=== PATIENT | male | born 1945 | race Caucasian/White ===

== ENCOUNTER → 2017-11-30 12:24 | Outpatient (CLI) | payer MEDICARE, SELFPAY ==
--- NOTE | 2017-11-30 12:32 | CA_ITS ---
PROCEDURE: 2-D M-mode and color Doppler study INDICATIONS FOR THE TEST: Chest pain COPD Heart Murmur Tobacco Smoking Palpitations Fatigue Syncope Edema HypertensionXDiabetes MellitusX Rheumatic Fever SOB COYLE Obesity HyperlipidemiaX Family History HD Additional History PACER,PAF,CAD PATIENT INFORMATION HEIGHT: 67 WEIGHT:220 GENDER: Male B/P:179/79 2-D/M-MODE INTERPRETATION: 2-D MEASUREMENTS OBSERVED VALUES IN CMS Right Ventricular Dimension (RVDd) 1.9 Interventricular Septum (Thickness)(IVsd) .9 Left Ventricular Internal Dimensions(LVIDd) 5.1 Left Ventricular Posterior Wall (Thickness)(LVPWd) 1.2 Aortic Root 3.8 Aortic Cusp Separation 1.6 Left Atrial Dimensions (LAD) 3.8 2D 1. Left atrium is mildly enlarged, left ventricle is normal size, there is mild concentric left ventricular hypertrophy, visually estimated ejection fraction 50% with no obvious regional wall motion abnormality. 2. The right atrium is mildly enlarged, right ventricle is normal size, there is a pacemaker lead seen in the right atrium and right ventricle, Contractility of the right ventricle is normal. 3. The aortic valve is minimally thickened and calcified, leaflet continue to display good mobility. 4. The mitral and tricuspid valve leaflets are minimally thickened. 5. The pulmonic valve is poorly visualized. 6. No significant pericardial effusion noted. DOPPLER INTERROGATION: Doppler interrogation of the aortic, mitral and tricuspid valvular presence of mild mitral and tricuspid regurgitation, tricuspid regurgitant jet velocity insufficient for calculation of the right ventricular systolic pressure, grade 1 diastolic dysfunction seen with tissue Doppler evidence of raised left atrial pressure. CONCLUSION: 1. Mild biatrial enlargement, normal left ventricular size, visually estimated ejection fraction 50% with no obvious regional wall motion abnormality, grade 1 diastolic dysfunction seen with tissue Doppler evidence of raised left atrial pressure. 2. Mild mitral and tricuspid regurgitation. 3. No significant pericardial effusion noted.
== END ==
PROVIDERS: PCP Internal Medicine Adolescent Medicine; Visit Provider Internal Medicine
DX: I25.10 Atherosclerotic heart disease of native coronary artery without angina pectoris (principal); I48.0 Paroxysmal atrial fibrillation; I10 Essential (primary) hypertension; E78.5 Hyperlipidemia, unspecified; E11.9 Type 2 diabetes mellitus without complications
CPT/HCPCS: 93306

== ENCOUNTER → 2019-03-27 10:23 | Outpatient (CLI) | payer MEDICARE, SELFPAY ==
--- NOTE | 2019-03-27 10:30 | NVE_ITS ---
Venous Exam Indications: 729.81 Swelling of limb. 729.5 Pain in limb. IMPRESSIONS 1. There is no evidence of significant Reflux. 2. No evidence of deep vein thrombosis involving the left lower extremity. Superficial thrombophlebitis seen left distal medial calf. History: Risk factors: Current tobacco use. Hypertension. Left lower extremity venous duplex evaluation. Doppler flow study including spectral analysis, color and ortiz scale imaging. Location: Vascular laboratory. Patient status: Outpatient. CRITICAL FINDINGS - Reported to: Dr Berumen - 03/27/2019 - 10:55 am - Superficial thrmbophlebitis left lower ext. Tables: Venous flow and imaging: + +-------+ + Location Overall Flow properties + +-------+ + Left common femoral Patent Normal phasicity; spontaneous; normal augmentation; compressible + +-------+ + Left saphenofemoral junction Patent Compressible + +-------+ + Left profunda femoral Patent Compressible + +-------+ + Left femoral Patent Normal phasicity; spontaneous; normal augmentation; compressible + +-------+ + Left greater saphenous Patent Normal phasicity; spontaneous; normal augmentation; compressible + +-------+ + Left popliteal Patent Normal phasicity; spontaneous; normal augmentation; compressible + +-------+ + Left posterior tibial Patent Compressible + +-------+ + Left peroneal Patent Compressible + +-------+ + Left gastrocnemius Patent Compressible + +-------+ + Left soleal Patent Compressible + +-------+ + (Report amended ) Electronically signed by: Paxton Patterson [id number]
[2019-03-27 11:01] LABS: Basophils % 0.6 % (0.1-2.0); Eosinophils # 0.3 K/mm3 (0.0-0.4); Eosinophils % 3.8 % (0.1-12.0); Hematocrit 45.5 % (42.0-52.0); Hemoglobin 15.8 g/dL (14.1-18.0); Lymphocytes # 2.1 K/mm3 (0.7-4.5); Lymphocytes % 26.7 % (10-50); Mean Corpuscular HGB Conc 34.7 g/dL (31.8-35.4); Mean Corpuscular Hemoglobin 30.6 pg (27.0-31.2); Monocytes # 0.7 K/mm3 (0.1-1.0); Monocytes % 8.4 % (1.7-9.3); Neutrophils # 4.9 K/mm3 (1.8-7.8); Neutrophils % 60.6 % (37.0-80.0); Platelet Count 242 K/mm3 (142-424); Red Blood Count 5.17 M/mm3 (4.60-6.20); Red Cell Distribution Width 13.3 % (11.5-17.5)
[2019-03-27 11:40] LABS: D-Dimer 710 ng/mL (0-400)
[2019-03-27 12:42] LABS: Alanine Aminotransferase 37 U/L (12-78); Albumin Level 4.2 gm/dL (3.4-5.0); Albumin/Globulin Ratio 1.3 (1.1-1.8); Alkaline Phosphatase 72 U/L (46-116); Anion Gap 12.4 mEq/L (5-15); Aspartate Amino Transferase 17 U/L (15-37); Bilirubin,Total 0.7 mg/dL (0.2-1.0); Blood Urea Nitrogen 15 mg/dL (7-18); Calcium 9.9 mg/dL (8.5-10.1); Carbon Dioxide 30 mmol/L (21.0-32.0); Chloride 101 mmol/L (98-107); Creatinine,Serum 0.97 mg/dL (0.70-1.30); Estimated Glomerular Filt Rate 76 ml/min (>60); GFR (African American) 92 ML/MIN (>60); Globulin 3.3 gm/dl (1.3-3.2); Glucose 191 mg/dL (74-106); Potassium 4.4 mmoL/L (3.5-5.1); Sodium 139 mmol/L (136-145); Total Protein,Serum 7.5 gm/dL (6.4-8.2)
== END ==
PROVIDERS: Visit Provider Internal Medicine Adolescent Medicine
DX: R60.0 Localized edema (principal); M79.605 Pain in left leg
CPT/HCPCS: 36415; 80053; 85025; 85378; 93971

== ENCOUNTER → 2019-06-08 13:01 | Outpatient (CLI) | payer MEDICARE, SELFPAY ==
--- NOTE | 2019-06-08 13:05 | XR_ITS ---
XR chest 2V HISTORY: ITS.REASON: chest pain, fall ORDERING PHYSICIAN: Radha Walton APRN PATIENT AGE: 74 years COMPARISON: 03/20/2018 FINDINGS: Bipolar pacemaker is present from a left subclavian approach. Normal heart size. The lungs are clear. Coronary artery stent is present. Degenerative change thoracic spine. IMPRESSION: No change with no acute finding
[2019-06-08 17:36] LABS: Anion Gap 12.9 mEq/L (5-15); Blood Urea Nitrogen 13 mg/dL (7-18); Calcium 9.7 mg/dL (8.5-10.1); Carbon Dioxide 27 mmol/L (21.0-32.0); Chloride 103 mmol/L (98-107); Estimated Glomerular Filt Rate 82 ml/min (>60); GFR (African American) 100 ML/MIN (>60); Glucose 192 mg/dL (74-106); Potassium 3.9 mmoL/L (3.5-5.1); Sodium 139 mmol/L (136-145)
== END ==
PROVIDERS: Internal Medicine Cardiovascular Disease; PCP Internal Medicine Adolescent Medicine; Visit Provider Nurse Practitioner Family
DX: R07.9 Chest pain, unspecified (principal)
CPT/HCPCS: 36415; 71046; 80048; 83880

== ENCOUNTER → 2019-06-08 14:52 | Outpatient (CLI) | payer MEDICARE, SELFPAY | PROVIDERS: Visit Provider Internal Medicine Cardiovascular Disease | DX: R06.00 Dyspnea, unspecified (principal); I25.10 Atherosclerotic heart disease of native coronary artery without angina pectoris; R07.89 Other chest pain; E78.5 Hyperlipidemia, unspecified; E11.9 Type 2 diabetes mellitus without complications; I10 Essential (primary) hypertension; I48.91 Unspecified atrial fibrillation; Z95.0 Presence of cardiac pacemaker; Z79.84 Long term (current) use of oral hypoglycemic drugs; Z87.891 Personal history of nicotine dependence | CPT/HCPCS: 36415; 71046; 80048; 83880 ==

== ENCOUNTER → 2019-06-15 10:38 | Outpatient (CLI) | payer MEDICARE, MEDICAID, SELFPAY ==
--- NOTE | 2019-06-15 10:40 | CA_ITS ---
PROCEDURE: 2-D M-mode and color Doppler study INDICATIONS FOR THE TEST: Chest pain COPD Heart Murmur Tobacco Smoking Palpitations Fatigue Syncope Edema Hypertension+Diabetes Mellitus+ Rheumatic Fever SOB COYLE+Obesity Hyperlipidemia+ Family History HD Additional History A-FIB,CAD, PACER TDS-LIMITED WINDOWS PATIENT INFORMATION HEIGHT: 67 WEIGHT:228 GENDER: Male B/P:147/69 2-D/M-MODE INTERPRETATION: 2-D MEASUREMENTS OBSERVED VALUES IN CMS Right Ventricular Dimension (RVDd) 2.6 Interventricular Septum (Thickness)(IVsd) 1.2 Left Ventricular Internal Dimensions(LVIDd) 3.2 Left Ventricular Posterior Wall (Thickness)(LVPWd) 1.3 Aortic Root 3.4 Aortic Cusp Separation 1.8 Left Atrial Dimensions (LAD) 4.0 2D 1. Left atrium is mildly enlarged, left ventricle is normal size, mild concentric left ventricular hypertrophy, visually estimated ejection fraction 55% with no regional wall motion abnormality. 2. The right atrium and right ventricle are mildly enlarged with normal contractility, there is a pacemaker leads in right ventricle. 3. The aortic valve is thickened and calcified leaflet continue to display mobility. 4. The mitral and tricuspid valve leaflets are minimally thickened and calcified. 5. The pulmonic valve is poorly visualized. 6. No significant pericardial effusion noted. DOPPLER INTERROGATION: Doppler interrogation of the aortic, mitral and tricuspid valvular presence of mild mitral and tricuspid regurgitation, tricuspid regurgitation jet velocity is inadequate for calculation of the right ventricular systolic pressure, grade 1 diastolic dysfunction seen with tissue Doppler evidence of raised left atrial pressure. CONCLUSION: 1. Mildly enlarged left atrium, normal left ventricular size, mild concentric left ventricular hypertrophy, visually estimated ejection fraction 55% with no regional wall motion abnormality, grade 1 diastolic dysfunction seen with tissue Doppler evidence of raised left atrial pressure. 2. Mild mitral and tricuspid regurgitation 3. No significant pericardial effusion noted.
--- NOTE | 2019-06-15 11:12 | NM_ITS ---
History:DYSPNEA, HTN, coronary artery disease, diabetes, hyperlipidemia Procedure: Patient received a 0.4 mg of intravenous Lexiscan, resting heart rate 60 bpm, resting blood pressure 143/80, with Lexiscan maximum heart rate achieve was 66 bpm which is less than 85 % of the maximum predicted heart rate and blood pressure was 135/60. WIth Lexiscan patient denied any complaint of chest pain. Electrocardiogram: Resting electrocardiogram showed sinus rhythm nonspecific ST-T changes, with Lexiscan there is less than 1.5mm ST segment depression noted from the baseline EKG. The EKG portion of the Lexiscan Myoview is nondiagnostic. Cardias Stress and Resting SPECT images: Cardias Stress and Resting SPECT images were obtained using technetium 99m Myoview 31.8 mCi stress and 10.38 mCi at rest. Gated SPECT further analysis of segmental wall motion and calculation of ejection fraction also done. Cardiac stress and resting SPECT show partial reversible defect involving the inferior apical and anteroseptal wall consistent with mixed ischemia and scar, the computer derived ejection fraction is 51% with moderate anterior anteroapical and apical septal wall hypokinesis. Right ventricle is normal size and contractility. Conclusion: 1. The EKG portion of the Lexiscan Myoview is nondiagnostic. 2. Scintigraphic evidence of mixed ischemia and scar involving the anterior anteroapical and apical septal wall, computer derived ejection fraction is 51% with segmental wall motion abnormality as described above. 3. Abnormal Lexiscan Myoview study.
--- NOTE | 2019-06-15 13:25 | HMH.ITSHM ---
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 []DILTAZAM ASA METFORMIN PANTOPRAZOLE HCTZ LOSARTAN DOXOZOSIN SOTOLOL ROSUVASTATIN
== END ==
PROVIDERS: PCP Internal Medicine Adolescent Medicine; Visit Provider Internal Medicine Cardiovascular Disease
DX: E78.5 Hyperlipidemia, unspecified (principal); I10 Essential (primary) hypertension; I25.10 Atherosclerotic heart disease of native coronary artery without angina pectoris; I48.91 Unspecified atrial fibrillation; Z95.0 Presence of cardiac pacemaker
CPT/HCPCS: 78452; 93017; 93306; A9502; J2785

== ENCOUNTER → 2019-07-12 07:42 | Outpatient (CLI) | payer MEDICARE, SELFPAY ==
[2019-07-12 08:06] LABS: Anion Gap 13.3 mEq/L (5-15); Blood Urea Nitrogen 20 mg/dL (7-18); Calcium 9.7 mg/dL (8.5-10.1); Carbon Dioxide 27 mmol/L (21.0-32.0); Chloride 103 mmol/L (98-107); Estimated Glomerular Filt Rate 65 ml/min (>60); GFR (African American) 79 ML/MIN (>60); Glucose 175 mg/dL (74-106); Potassium 4.3 mmoL/L (3.5-5.1); Sodium 139 mmol/L (136-145)
== END ==
PROVIDERS: Visit Provider Nurse Practitioner Family
DX: I51.89 Other ill-defined heart diseases (principal); R06.00 Dyspnea, unspecified
CPT/HCPCS: 36415; 80048

== ENCOUNTER → 2020-03-12 07:39 | Outpatient (CLI) | payer MEDICARE, MEDICAID, SELFPAY ==
--- NOTE | 2020-03-12 07:39 | CA_ITS ---
APPROVED REPORT Automation Machine Builder: CT Laterality: Bilateral Indications: dizzness, bruit on exam Risk Factors Hypertension: Hyperlipidemia Doppler Spectral Velocity Analysis ECA (R) 136.40/5.90 cm/s ECA (L) 154.00/19.90 cm/s dICA (R) 59.70/14.10 cm/s dICA (L) 68.70/20.50 cm/s Floyd (R) 74.50/21.80 cm/s Floyd (L) 62.30/19.30 cm/s pICA (R) 49.20/16.70 cm/s pICA (L) 63.60/19.90 cm/s dCCA (R) 68.50/13.70 cm/s dCCA (L) 75.40/12.00 cm/s pCCA (R) 89.10/14.60 cm/s pCCA (L) 102.80/10.30 cm/s Vert (R) 31.70/6.40 cm/s Vert (L) 36.80/9.80 cm/s ICA/CCA 1.10 ICA/CCA 0.90 Findings Duplex evaluation demonstrates stenosis of the right proximal internal carotid artery in the range of 20-49% with PSV <140 cm/sec, EDV <100 cm/sec, and IC/CC Ratio <4.0. Duplex evaluation demonstrates stenosis of the left proximal internal carotid artery in the range of 20-49% with PSV <140 cm/sec, EDV <100 cm/sec, and IC/CC Ratio <4.0. Duplex evaluation demonstrates antegrade flow of the bilateral Vertebral Arteries. Conclusion Duplex evaluation demonstrates stenosis of the right proximal internal carotid artery in the range of 20-49% with PSV <140 cm/sec, EDV <100 cm/sec, and IC/CC Ratio <4.0. Duplex evaluation demonstrates stenosis of the left proximal internal carotid artery in the range of 20-49% with PSV <140 cm/sec, EDV <100 cm/sec, and IC/CC Ratio <4.0. Electronically signed by : Paxton Patterson MD 03/12/2020 19:06:27
== END ==
PROVIDERS: PCP Internal Medicine Adolescent Medicine; Visit Provider Urology
DX: R42 Dizziness and giddiness; I65.23 Occlusion and stenosis of bilateral carotid arteries
CPT/HCPCS: 93880

== ENCOUNTER → 2020-05-06 07:40 | Outpatient (CLI) | payer MEDICARE, SELFPAY | PROVIDERS: PCP Internal Medicine Adolescent Medicine; Visit Provider Urology | DX: I25.10 Atherosclerotic heart disease of native coronary artery without angina pectoris (principal) | CPT/HCPCS: 93306 ==

== ENCOUNTER 2020-06-03 19:44 | Emergency (ER) | payer MEDICARE, MEDICAID, SELFPAY ==
[2020-06-03 19:58] VITALS: BP 152/71; PULSE 74; RESP 20; TEMP 36.7; O2SAT 98; BMI 37.8
--- NOTE | 2020-06-03 20:06 | HMH.EDUTC ---
[facility] [place] Clinical Impression: Tick bite Qualifiers: Encounter type: initial encounter Qualified Code(s): W57.XXXA - Bitten or stung by nonvenomous insect and other nonvenomous arthropods, initial encounter Disposition: Home, Self-Care Condition on Discharge: Good Instructions: Protect Yourself from Tickborne Illnesses Additional Instructions: Follow up with your regular doctor tomorrow as you have already scheduled. Watch the site for worsening redness or a bull's eye rash . Follow up immediately for any problems. GO TO THE ER FOR ANY WORSENING SYMPTOMS OR CONCERNS Prescriptions: Mupirocin [Bactroban 2% Ointment 22gm tube] 1 applicatio TP TID 7 Days #1 tube Transmission Status: Received by [facility] Referrals: Jl Berumen MD [Primary Care Provider] - Time of Disposition: 20:11 Medical Decision Making - Medical Records Medical records reviewed: No: I reviewed the patient's medical records. - Olegario Inquiry Pt receiving controlled substance: No Vital Signs: 06/03/20 19:58 06/03/20 20:07 Temperature 98.1 F 98.1 F Temperature Source Oral Pulse Rate 74 Pulse Rate [Right Brachial] 74 Respiratory Rate 20 20 Blood Pressure 152/71 H Blood Pressure [Right Arm] 152/71 H Blood Pressure Mean [Right Arm] 98 Blood Pressure Source [Right Arm] Automatic Cuff Blood Pressure Position [Right Arm] Sitting 02 Sat by Pulse Oximetry 98 Oxygen Delivery Method Room Air [facility] [place] H[place] - General Stated complaint: tick in left leg Time Seen by Provider: 06/03/20 20:07 Mode of Arrival: Ambulatory Source of Information: Patient Limitations: No Limitations Description of Symptoms (Recalled from Triage Doc. by RN): PATIENT C/O TICK IN LEFT LEG, STATES HE JUST NOTICED IT TODAY WHILE IN THE SHOWER HEENT Symptoms (Recalled from RN notes): No Resp Symptoms (Recalled from RN notes): No Skin Symptoms (Recalled from RN notes): Yes MS Symptoms (Recalled from RN notes): No Functional Status (Recalled from RN notes): WNL - History of Present Illness Provider Complaint: He states that he found a tick on his right upper leg earlier today and removed it. He states that his was afraid that part of the tick was left embedded in the site. He came here to have it checked. He denies any fever/chills or rash. - Related Data Home Medications Medication Instructions Recorded Confirmed metformin 500 mg tablet 1,000 mg PO BID tab 12/03/17 03/12/20 rosuvastatin 20 mg tablet 10 mg PO DAILY 06/08/19 03/12/20 empagliflozin 25 mg tablet 25 mg PO DAILY tab 12/13/19 03/12/20 Previous Rx's Medication Instructions Recorded clopidogrel 75 mg tablet 75 mg PO DAILY #30 tab 07/03/19 diltiazem HCl 240 mg 360 mg PO QDAY #90 cap 08/14/19 capsule,extended release 24 hr losartan 100 mg tablet 100 mg PO DAILY #30 tab 12/13/19 doxazosin 4 mg tablet 4 mg PO BID #60 tab 03/12/20 sotalol 120 mg tablet 120 mg PO BID #60 tab 03/12/20 nitroglycerin 0.4 mg sublingual 0.4 mg SUBLINGUAL Q5M PRN #25 tab 05/13/20 tablet furosemide 20 mg tablet 20 mg PO DAILY #90 tab 05/20/20 rivaroxaban 20 mg tablet 20 mg PO DAILY #30 tab 05/20/20 Mupirocin [Bactroban 2% Ointment 1 applicatio TP TID 7 Days #1 tube 06/03/20 22gm tube] Allergies Allergy/AdvReac Type Severity Reaction Status Date / Time amoxicillin Allergy Mild Hives Verified 03/12/20 09:21 - Worker's Comp Is this a Worker's Comp case?: No [facility] History - Hepatitis A Screen Drug use history?: No High risk sexual behaviors?: No History of sexually transmitted infection?: No Currently employed?: No Childcare worker?: No Do you have indoor plumbing?: Yes Do you have electricity?: Yes Attestation statement:: This patient has been screened for Hepatitis A risk factors. I have reviewed the patient's past medical history: Yes Medical History: Reports:: Atrial Fibrillation, Coronary Artery Disease, Diabetes Mellitus Type 2, Hyperlipidemia
[2020-06-03 20:07] VITALS: BP 152/71; PULSE 74; RESP 20; TEMP 36.7; O2SAT 98
== END 2020-06-03 20:17 | disposition home or self-care (01) ==
PROVIDERS: Emergency Provider Nurse Practitioner Family; PCP Internal Medicine Adolescent Medicine
DX: S70.362A Insect bite (nonvenomous), left thigh, initial encounter (principal); W57.XXXA Bitten or stung by nonvenomous insect and other nonvenomous arthropods, initial encounter; E11.9 Type 2 diabetes mellitus without complications; Z79.84 Long term (current) use of oral hypoglycemic drugs; I25.10 Atherosclerotic heart disease of native coronary artery without angina pectoris; I48.91 Unspecified atrial fibrillation; I10 Essential (primary) hypertension; E78.5 Hyperlipidemia, unspecified; Z88.1 Allergy status to other antibiotic agents; Z95.0 Presence of cardiac pacemaker
CPT/HCPCS: 99201

== ENCOUNTER → 2020-06-29 08:10 | Outpatient (CLI) | payer MEDICARE, SELFPAY ==
[2020-06-29 09:28] LABS: Coronavirus 19 IgG Antibody Negative (Negative); Coronavirus 19 IgM Antibody Negative (Negative)
== END ==
PROVIDERS: Visit Provider Internal Medicine Gastroenterology
DX: Z01.818 Encounter for other preprocedural examination (principal); Z12.11 Encounter for screening for malignant neoplasm of colon
CPT/HCPCS: 36415; 86328

== ENCOUNTER 2020-07-01 06:56 | Day surgery (SDC) | payer MEDICARE, MEDICAID, SELFPAY ==
--- NOTE | 2020-06-28 09:36 | SUR.PREOP ---
Spoke to patient's pre-operatively. Clarification given multiple times for medications, prep, covid testing importance. Verbalized understanding.
[2020-07-01 07:12] VITALS: BP 156/93; PULSE 60; RESP 18; TEMP 36.2; O2SAT 98
[2020-07-01 07:24] LABS: POC Glucose,Bedside 143 (70-110)
--- NOTE | 2020-07-01 07:43 | P.PN_ITS ---
[facility] Anesthesia Checklist - Patient Identification Patient Identification: Arm Band, Verbal (Name & ) - Structural Data Admitted From: Home Planned Operative Procedure/s: Colonoscopy Consent for Planned Operative Procedure(s) Verified: Yes Verified Documents: Surgical Consent, History and Physical - NPO Status Verified Time NPO: 00:00 - Chart Verification Results Verified: None - Additional verifications Anesthesia Reactions: No - Airway Assessment C-Spine Mobility Assessed: Yes TMJ Mobility Assessed: Yes Dentition: Edentulous - Neurological Assessment Level of Consciousness: Awake, Alert, Appropriate, Follows Commands Hx Seizures: No Numbness or tingling in extremities: No - Anesthesia Plan Anesthesia Risk discussed: Yes Anesthesia Plan: Verified ASA Class: III Anesthesia Type: MAC [facility] History I have reviewed the patient's past medical history: Yes Medical History: Reports:: Atrial Fibrillation, Coronary Artery Disease, Diabetes Mellitus Type 2, Hyperlipidemia, Hypertension, Internal Pacemaker Denies:: Cancer, Diabetes Mellitus Type 1, MRSA, Seizures *Have you ever received a pneumonia vaccine?: No *Have you received a flu vaccine this season?: No Anesthesia experience/problems:: No prior complications Other Surgeries: Yes: Angioplasty, Cardiac Catheterization, Coronary Stent, Hernia Repair, Pacemaker, Other Amputation: No Fractures: No - *Social History Last grade of school completed: 9th or 10th Smoking Status: Never smoker Tobacco Type: smokeless tobacco # Packs/Day (cigarettes): 0 Alcohol Intake: never Alcohol Intake Frequency:: other Substance Use Type: denies use *Occupational Status:: other Housing: house Household Members: spouse *Travel in the last 8 weeks: None Family Hx:: Diabetes
[2020-07-01 07:58] VITALS: O2SAT 97
--- NOTE | 2020-07-01 08:07 | P.PCN_ITS ---
[facility] Procedure Note Procedure Note:: Colonoscopy Procedure Report: Colonoscopy with cold snare polypectomy Endoscopist: Catracho Ellison II, MD Referring physician: Jl Berumen M.D. Date of Procedure: July 01, 2020 Equipment: Olympus 180 variable stiffness pediatric colonoscope Sedation: MAC sedation Indication: Mr. Chaudhari is a 75-year-old gentleman who is here for diagnostic colonoscopy secondary to a positive Cologuard test recently. He had a negative Cologuard in 2017. He has never had a colonoscopy. He reports no bright red re ctal bleeding, hematochezia or melena. He reports no abdominal pain, change in bowel habits or weight loss. He reports no family history of colon cancer. He does take a stool softener occasionally. Procedure: Prior to the procedure, a history and physical exam was performed, and patient's medications and allergies were reviewed. The risks, benefits and alternatives of the sedation and procedure were discussed with the patient. All questions were answered and informed consent was obtained. The patient was brought to the procedure room. Patient identification and proposed procedure were verified by the physician and the nurse. The patient was placed in a left lateral decubitus position and the scope was passed under direct vision. Throughout the procedure, the patient's blood pressure, pulse, and oxygen saturations were monitored continuously. The colonoscopy was accomplished without difficulty. The patient tolerated the procedure well. Findings: On digital rectal examination there was normal rectal tone. There were no external hemorrhoids. The prostate was 2-3+, smooth, soft, symmetric without nodules. The colonoscope was introduced through the anal canal to the rectum and advanced to the cecum. The ileocecal valve and appendiceal orifice were identified. The scope was advanced a short distance into the ileum which appeared grossly normal. The scope was then withdrawn into the colon. There were 4 colon polyps (cecum x1 (6 mm), transverse x1 (3 mm) and descending x2 (5 and 7 mm)) which were all removed via cold snare polypectomy. There were scattered diverticuli throughout the descending and sigmoid colon (LEFT colon). The rectum itself was normal. Upon retroflexion within the rectum there were grade 1-2 internal hemorrhoids. The preparation was excellent throughout with Sadorus Preparation Score of 9. The cecal time was 12 minutes. Impression: 1. Colonic polyps x4 2. Left-sided diverticulosis 3. Grade 1-2 internal hemorrhoids Plan: I will follow up the polyp pathology and recommend repeat colonoscopy again in 5 years based upon the polyp histology. I would encourage fiber supplementation on a long-term daily maintenance basis.
[2020-07-01 08:28] VITALS: BP 102/62; PULSE 60; RESP 12; TEMP 36.6; O2SAT 93
[2020-07-01 08:38] VITALS: BP 105/69; PULSE 60; RESP 14; O2SAT 94
[2020-07-01 08:48] VITALS: BP 113/69; PULSE 63; RESP 16; O2SAT 96
[2020-07-01 08:58] VITALS: BP 129/79; PULSE 60; RESP 16; TEMP 36.6; O2SAT 97
== END 2020-07-01 09:00 | disposition home or self-care (01) ==
LOC: OUTP 06:58
PROVIDERS: PCP Internal Medicine Adolescent Medicine; Visit Provider Internal Medicine Gastroenterology
PROC: 0DJD8ZZ Inspection of Lower Intestinal Tract, Via Natural or Artificial Opening Endoscopic (ICD-10-PCS; CPT 45378; principal; 2020-07-01 08:00)
DX: K63.5 Polyp of colon (principal); K57.30 Diverticulosis of large intestine without perforation or abscess without bleeding; K64.0 First degree hemorrhoids; I48.91 Unspecified atrial fibrillation; E11.9 Type 2 diabetes mellitus without complications; E78.5 Hyperlipidemia, unspecified; I10 Essential (primary) hypertension; Z95.0 Presence of cardiac pacemaker; Z95.818 Presence of other cardiac implants and grafts; Z88.1 Allergy status to other antibiotic agents; Z79.84 Long term (current) use of oral hypoglycemic drugs; Z79.899 Other long term (current) drug therapy
CPT/HCPCS: 45385; 82962; 88305; J2704

== ENCOUNTER → 2021-03-21 07:40 | Outpatient (CLI) | payer MEDICARE, MEDICAID, SELFPAY ==
--- NOTE | 2021-03-21 | CA_ITS ---
APPROVED REPORT Patrol Commander: CARL Laterality: Bilateral Indications: ELAINE Risk Factors Hypertension: Hyperlipidemia Diabetes Doppler Spectral Velocity Analysis ECA (R) 162.50/11.80 cm/s ECA (L) 129.10/6.70 cm/s dICA (R) 87.70/20.90 cm/s dICA (L) 64.20/14.10 cm/s Floyd (R) 89.80/27.80 cm/s Floyd (L) 55.90/17.30 cm/s pICA (R) 68.40/19.20 cm/s pICA (L) 79.00/23.10 cm/s dCCA (R) 63.60/16.00 cm/s dCCA (L) 57.70/11.10 cm/s pCCA (R) 73.20/12.30 cm/s pCCA (L) 82.20/16.00 cm/s Vert (R) 30.00/11.10 cm/s Vert (L) 43.70/12.80 cm/s ICA/CCA 1.41 ICA/CCA 1.37 Findings Duplex evaluation demonstrates stenosis of the right proximal internal carotid artery in the range of 20-49%, No change from study done 03/12/20. Duplex evaluation demonstrates stenosis of the left proximal internal carotid artery in the range of 20-49%, no change from study done 03/12/20. Conclusion Duplex evaluation demonstrates stenosis of the right proximal internal carotid artery in the range of 20-49%, No change from study done 03/12/20. Duplex evaluation demonstrates stenosis of the left proximal internal carotid artery in the range of 20-49%, no change from study done 03/12/20. Electronically signed by : Paxton Patterson MD 03/21/2021 15:49:05
== END ==
PROVIDERS: PCP Internal Medicine Adolescent Medicine; Visit Provider Urology
DX: R42 Dizziness and giddiness (principal); I65.23 Occlusion and stenosis of bilateral carotid arteries
CPT/HCPCS: 93880

== ENCOUNTER → 2021-03-31 09:22 | Outpatient (CLI) | payer MEDICARE, MEDICAID, SELFPAY ==
--- NOTE | 2021-03-31 09:27 | US_ITS ---
PROCEDURE: US EXTREMITY RT LIMITED CLINICAL INDICATION: PAIN IN RT AXILLA COMPARISON: No exams were available for comparison FINDINGS: Few scattered lymph nodes are noted in the right axilla, demonstrate normal morphology and central fatty hilum. No evidence of focal mass lesions or suspicious findings at the area of pain. IMPRESSION: No suspicious findings or mass lesions. Dictated by: Kelyl Diane 03/31/2021 12:44 Kelly Dinae in OV 03/31/2021 12:44
== END ==
PROVIDERS: PCP Internal Medicine Adolescent Medicine; Visit Provider Nurse Practitioner Family
DX: M79.621 Pain in right upper arm (principal)
CPT/HCPCS: 76882

== ENCOUNTER → 2021-11-20 08:49 | Outpatient (CLI) | payer MEDICARE, MEDICAID, SELFPAY ==
[2021-11-20 09:24] LABS: Hemoglobin A1C 7.1 % (4.0-6.0)
[2021-11-20 10:04] LABS: Chloride 105 mmol/L (98-107)
[2021-11-20 10:05] LABS: Potassium 4.1 mmoL/L (3.5-5.1); Sodium 141 mmol/L (136-145)
[2021-11-20 10:08] LABS: Anion Gap 14.1 mEq/L (5-15); Blood Urea Nitrogen 18 mg/dl (9-20); Calcium 9.9 mg/dl (8.4-10.2); Carbon Dioxide 26 mmol/L (22.0-30.0); Estimated Glomerular Filt Rate 94 ml/min (>60); GFR (African American) 114 ML/MIN (>60); Glucose 144 mg/dl (74-100)
== END ==
PROVIDERS: Visit Provider Nurse Practitioner Family
DX: E11.21 Type 2 diabetes mellitus with diabetic nephropathy (principal); Z79.84 Long term (current) use of oral hypoglycemic drugs
CPT/HCPCS: 36415; 80048; 83036

== ENCOUNTER → 2022-10-22 07:47 | Outpatient (CLI) | payer MEDICARE, MEDICAID, SELFPAY ==
--- NOTE | 2022-10-22 07:50 | XR_ITS ---
FINAL REPORT TECHNIQUE: Chest PA & Lateral CLINICAL HISTORY: pain at pacemaker site FINDINGS: 2 views of the chest were performed. A left subclavian pacemaker is present. There is mild cardiomegaly. The mediastinum is within normal limits. There is no acute cardiopulmonary process. There are no pleural effusions. There is no pneumothorax. The bony thorax appears intact. IMPRESSION: No acute cardiopulmonary process. Reviewed, Interpreted and Dictated by Fabrice Montez MD Transcribed by Natalie Huber Authenticated and [facility]
== END ==
PROVIDERS: PCP Nurse Practitioner Family; Visit Provider Internal Medicine
DX: E78.2 Mixed hyperlipidemia (principal); I10 Essential (primary) hypertension; I48.0 Paroxysmal atrial fibrillation; R42 Dizziness and giddiness; R52 Pain, unspecified; Z95.0 Presence of cardiac pacemaker
CPT/HCPCS: 71046

== ENCOUNTER → 2023-02-01 08:42 | Outpatient (CLI) | payer MEDICARE, MEDICAID, SELFPAY ==
--- NOTE | 2023-02-01 08:47 | XR_ITS ---
FINAL REPORT CLINICAL HISTORY: RT SACROILIAC JOINT PAIN FINDINGS: SACROILIAC JOINTS Three views demonstrate no acute fracture or dislocation. The sacral arches are intact. There are mild degenerative changes of the SI joints and both hips. There is moderate degenerative change of the lower lumbar spine. Vascular calcifications are present. IMPRESSION: Mild degenerative change of the hips and bilateral SI joints. Reviewed, Interpreted and Dictated by Ken Cornejo III, MD Transcribed by Hema Oneal Authenticated and [facility]
== END ==
PROVIDERS: PCP Nurse Practitioner Family; Visit Provider Nurse Practitioner Family
DX: M53.3 Sacrococcygeal disorders, not elsewhere classified (principal)
CPT/HCPCS: 72202

== ENCOUNTER → 2023-03-18 07:07 | Outpatient (CLI) | payer MEDICARE, MEDICAID, SELFPAY | PROVIDERS: PCP Nurse Practitioner Family; Visit Provider Nurse Practitioner | DX: E11.69 Type 2 diabetes mellitus with other specified complication (principal); E78.2 Mixed hyperlipidemia; I10 Essential (primary) hypertension; I25.10 Atherosclerotic heart disease of native coronary artery without angina pectoris; I48.0 Paroxysmal atrial fibrillation; R06.00 Dyspnea, unspecified; Z95.0 Presence of cardiac pacemaker; Z79.84 Long term (current) use of oral hypoglycemic drugs | CPT/HCPCS: 78452; 93017; 93306; A9502; J2785 ==

== ENCOUNTER 2023-03-30 08:45 | Day surgery (SDC) | payer MEDICARE, MEDICAID, SELFPAY ==
[2023-03-30] VITALS (11 sets, daily range): BP systolic 127–172; BP diastolic 69–94; PULSE 60–65; RESP 15–18; O2SAT 92–98; BMI 30.7
--- NOTE | 2023-03-30 07:30 | IR_ITS ---
APPROVED REPORT Patient Location: Outpatient PROCEDURES Left heart catheterization Left ventriculogram Selective coronary angiogram Intravascular ultrasound to the LAD Intravascular sound the circumflex artery INDICATION Coronary artery disease, Accelerated angina pectoris Informed consent was obtained prior to the procedure. COMPLICATIONS NONE Estimated Blood Loss: LESS THAN 10 ML TECHNIQUE One percent lidocaine used to anesthetize the right anterior aspect of the wrist. The right radial artery was accessed via the Seldinger technique. A 6 Trinidadian sheath was placed in the right radial artery. 150 mg magnesium sulfate, 800 mcg of nitroglycerin, 1mg Lidocaine and 5000 U Heparin were given through the arterial sheath. The papa catheter was also used to perform left heart catheterization, left ventriculogram and selective coronary angiogram. At the end the diagnostic angiogram therapeutic heparin was administered given therapeutic ACT and the guide catheter was placed in left main artery followed by BMW wire being placed down the LAD. Intravascular ultrasound probe was advanced with the MLA exceeding 5 mm???. The wire was then placed on the circumflex artery and the intravascular ultrasound probe was advanced. Likewise the MLA in the proximal circumflex artery exceeded 5 mm???. At this point the apparatus was removed the sheath was removed and hemostasis was achieved and TR banding patient was transferred to the postop holding in stable addition ANGIOGRAPHIC RESULTS The left main artery Normal The left anterior descending artery Has a proximal 30 to 40% stenosis followed by a widely patent stent which extends from the proximal to the mid segment. The transitioning in the distal segment distal excellent. Distal in the LAD there is a long tubular 90% stenosis and a 2 mm vessel. The LAD does wrap the apex The circumflex artery Is a large dominant vessel and has 30% ostial proximal stenosis followed by a stent which is widely patent with minimal in-stent restenosis excellent proximal distal transitioning. There is mid vessel 20 to 30% stenoses with a eccentric 30% distal stenosis followed by a long tubular 70% stenosis in the proximal portion of the terminal obtuse marginal artery which functions as a large posterior descending artery. The vessel was 2.75 mm in diameter at the stenotic area The right coronary artery Nondominant and has stents in the proximal segment. The mid right coronary artery is subtotally occluded The MUÑOZ ventriculogram reveals Normal 65% The left ventricular end-diastolic pressure 10 mmHg IMPRESSION Severe disease in the distal LAD as described above which is best managed medically Moderate to severe disease in the proximal portion of a large posterior descending artery which functions as the terminal obtuse marginal artery off the dominant circumflex artery. 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 At this point I favor medical management. The LAD would be the least desirable vessel stent at this point. If patient is experiencing angina its almost certainly coming from the circumflex artery. At this point I would favor medical management. If patient's angina is absolutely recalcitrant to medical management I would consider stenting the circumflex artery which occurs along the long tortuous bend and would require a 2.75 x 38 mm stent 2. LDL less than 55 3. Avoidance of tobacco products 4. Risk factor modification 5. Cardiac rehabilitation Electronically signed by : Joesph Aguilar MD 03/31/2023 12:55:38
[2023-03-30 09:36] LABS: Basophils % 0.5 % (0.1-2.0); Eosinophils # 0.3 K/mm3 (0.0-0.4); Eosinophils % 4.7 % (0.1-12.0); Hematocrit 42.8 % (42.0-52.0); Hemoglobin 13.8 g/dL (14.1-18.0); Lymphocytes # 1.5 K/mm3 (0.7-4.5); Lymphocytes % 20.9 % (10-50); Mean Corpuscular HGB Conc 32.3 g/dL (31.8-35.4); Mean Corpuscular Hemoglobin 26.8 pg (27.0-31.2); Mean Corpuscular Volume 83.1 fl (80-94); Mean Platelet Volume 8.1 fl (7.4-10.4); Monocytes # 0.6 K/mm3 (0.1-1.0); Monocytes % 9.2 % (1.7-9.3); Neutrophils # 4.5 K/mm3 (1.8-7.8); Neutrophils % 64.6 % (37.0-80.0); Platelet Count 281 K/mm3 (142-424); Red Blood Count 5.15 M/mm3 (4.60-6.20); Red Cell Distribution Width 15.2 % (11.5-17.5)
[2023-03-30 09:47] LABS: Chloride 100 mmol/L (98-107); Potassium 3.9 mmoL/L (3.5-5.1); Sodium 141 mmol/L (136-145)
[2023-03-30 09:50] LABS: Anion Gap 16.9 mEq/L (5-15); Blood Urea Nitrogen 20 mg/dl (9-20); Calcium 9.4 mg/dl (8.4-10.2); Carbon Dioxide 28 mmol/L (22.0-30.0); Creatinine Clearance Estimated 78 mL/min (50-200); Estimated Glomerular Filt Rate 94 ml/min (>60); GFR (African American) 113 ML/MIN (>60); Glucose 198 mg/dl (74-100)
== END 2023-03-30 14:09 | disposition home or self-care (01) ==
PROVIDERS: PCP Nurse Practitioner Family; Visit Provider Internal Medicine
DX: I25.118 Atherosclerotic heart disease of native coronary artery with other forms of angina pectoris (principal); E11.69 Type 2 diabetes mellitus with other specified complication; E78.2 Mixed hyperlipidemia; I10 Essential (primary) hypertension; I48.0 Paroxysmal atrial fibrillation; R06.09 Other forms of dyspnea; Z95.0 Presence of cardiac pacemaker; R06.00 Dyspnea, unspecified
CPT/HCPCS: 80048; 85025; 92979; 93458; 99152; C1725; C1769; J1644; Q9967

== ENCOUNTER 2023-05-13 08:00 | Outpatient (RCR) | payer MEDICARE, MEDICAID, SELFPAY ==
--- NOTE | 2023-02-11 10:17 | HMH.PTOPEV ---
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 Pt reports previous lumbar spine sx's x2, most recent ~7 yrs ago. Pt reports localized right sided LBP with this episode, but reports chronic right LE weakness since previous issues /sx's. Chief Complaint Pain,Stiff,Gives out/Unstable, Weakness Symptom Type Ache,Sharp,Dull Symptoms Relieved By Rest/Positioning,OTC Meds Symptoms Aggravated By Standing,Bending/Stooping, Physical Activity,Twisting, Walking Prior Functional Limitations Standing,Walking Current Functional Limitations Lifting,Housework,Standing, Walking Symptom Description Constant but Variable Level of pain today (0-10) 5 Pain scale - at its best (0-10) 5 Pain scale - at its worst (0-10) 8 Lumbopelvic Eval Posture Thoracic Spine Posture Standing Position Flattened Lumbar Spine Posture Standing Position Flattened Assistive device Assistive Devices None / NA Gait Observation General Gait Pattern Observation Antalgic Gait,Wide Based Gait Palapation tenderness right lumbar spinal tenderness Yes: 3/4 paraspinal tenderness Yes: 3/4 buttock tenderness Yes: 1/4 Lumbar/Sacral Palpation Findings Tenderness,Muscle Guarding Accessory Movement L-spine Vertebrae Accessory Movements Central P/A [place] that Elicit Symptoms L2 right L3 right L4 right L5 right Range of Motion Lumbar Spine Active Flexion Range of 0-50 Motion (degrees) Lumbar Spine Active Extension Range of 0 Motion (degrees) Left Lumbar Spine Lateral Flexion Active 0-20 Range of Motion (degrees) Right Lumbar Spine Lateral Flexion 0-10 Active Range of Motion (degrees) Lumbar Spine ROM Limitations Pain Manual Muscle Test Left Knee Extension Strength Grade 5 Normal Knee Fle
--- NOTE | 2023-03-16 09:18 | HMH.RHREAS ---
Rehab Reassessment Rehab OP Re-assessment Start: 03/16/23 08:22 Freq: Status: Active Protocol: Document 03/16/23 09:10 VIDHYA (Rec: 03/16/23 09:18 VIDHYA [id number]) E-signed By Avni Smith, PT Rehab Re-assessment Subjective Subjective Pt reports improved LBP since I eval, @ 5/10 on VAS at its worst, and feels 75% better overall since I eval Objective Objective Notes AROM LUMBAR SPINE: FLX 0-55, EXT 0-10, B/L SB 0-20 MMT: B/L HIP FLX 4+/5, RIGHT KNEE EXT,FLX 4-4+/5, R DF 4/5, R GASTROC 4/5 TTP: RIGHT LUMBAR PARA. MM 1-2 /4, RIGHT GLUT 1/4 GAIT: WFL ON LEVEL TERRAIN Assessment Progress Assessment Progressing as Expected Assessment Notes SIGNIFICANT IMPROVEMENTS IN AROM, STRENGTH, AND TTP Patient goals met STG'S 06/30 LTG'S 01/01 Goals Not Met STG'S 11/30, LTG'S 07/01 Plan Plan Pt to continue w/skilled P.T. to make further improvements in AROM, strength, and TTP to allow for optimal function Frequency of Therapy 1-2x/wk Duration of therapy 3-4wks Time and Billing Re-Eval Time 11 Re-Eval Billing Units 1 PHYSICIAN CERTIFICATION: I certify the specified therapy services for Yojana Chaudhari are required, authorized, and reviewed every 30 days.
--- NOTE | 2023-04-20 09:43 | HMH.RHREAS ---
Rehab Reassessment Rehab OP Re-assessment Start: 03/16/23 08:22 Freq: Status: Active Protocol: Document 04/20/23 08:53 VIDHYA (Rec: 04/20/23 09:43 VIDHYA [id number]) E-signed By Avni Smith, PT Rehab Re-assessment Subjective Subjective Pt reports recent absence from skilled P.T. d/t the passing of his sister, and reports 'my back has gotten a little worse since I haven't been able to get here.' Pt reports 3-5/10 LBP on VAS over the last couple days, 'spent too much time in the hospital trying to sleep in a chair.' Objective Objective Notes AROM LUMBAR SPINE: FLX 0-48, EXT 0-14, B/L SB 0-25 MMT: B/L HIP FLX 4+/5, RIGHT KNEE EXT,FLX 4-4+/5, R DF 4/5, R GASTROC 4+-5/5 TTP: RIGHT LUMBAR PARA. MM 2/4 , RIGHT GLUT 1/4 GAIT: WFL ON LEVEL TERRAIN Assessment Progress Assessment Progressing as Expected Assessment Notes improved ROM (ext and b/l sb' ing), no change in TTP or gait Patient goals met STG'S 06/30 LTG'S 03/01 Goals Not Met STG'S 11/30,LTG'S 05/01 Plan Plan Pt to continue w/skilled P.T. to make further improvements in AROM, strength, and TTP to allow for optimal function Frequency of Therapy 1-2X/WK Duration of therapy 2-4WKS Time and Billing Re-Eval Time 10 Re-Eval Billing Units 0 PHYSICIAN CERTIFICATION: I certify the specified therapy services for Yojana Chaudhari are required, authorized, and reviewed every 30 days.
== END 2023-05-13 08:05 | disposition home or self-care (01) ==
LOC: PT 08:00
PROVIDERS: PCP Nurse Practitioner Family; Visit Provider Nurse Practitioner Family
DX: M54.9 Dorsalgia, unspecified (principal); M54.50 Low back pain, unspecified
CPT/HCPCS: 97010; 97012; 97035; 97110; 97163; 97164; 97530

== ENCOUNTER 2023-05-20 09:41 | Outpatient (RCR) | payer MEDICARE, MEDICAID, SELFPAY | END 2023-07-15 09:15 | disposition home or self-care (01) | LOC: PT 09:41 | PROVIDERS: Visit Provider Physician Assistant | DX: I25.10 Atherosclerotic heart disease of native coronary artery without angina pectoris (principal); R06.09 Other forms of dyspnea | CPT/HCPCS: 93798 ==

== ENCOUNTER → 2023-07-13 11:37 | Outpatient (CLI) | payer MEDICARE, SELFPAY ==
--- NOTE | 2023-07-13 11:39 | CA_ITS ---
FINAL REPORT CLINICAL HISTORY: unsteady on feet, dizziness,HTN,HLD,DM FINDINGS: The peak systolic velocity of the right common carotid artery is 83 cm/s. The peak systolic velocity of the right internal carotid artery is 92 cm/s and end diastolic velocity 25 cm/s. The ICA/CCA ratio is 1.3. A moderate amount of plaque is present. The right external carotid artery is patent. The right vertebral artery is patent with antegrade flow. The peak systolic velocity of the left common carotid artery is 82 cm/s. The peak systolic velocity of the left internal carotid artery is 87 cm/s and end diastolic velocity 19 cm/s. The ICA/CCA ratio is 1.5. A moderate amount of plaque is present. The left external carotid artery is patent.The left vertebral artery is patent with antegrade flow. IMPRESSION: Less than 50% bilateral carotid stenoses. Bilateral patent vertebral arteries with antegrade flow. If indicated, CTA or MRA could further evaluate. Reviewed, Interpreted and Dictated by Fabrice Montez MD Transcribed by Susana Her Authenticated and [facility]
== END ==
PROVIDERS: PCP Nurse Practitioner Family; Visit Provider Physician Assistant
DX: R26.81 Unsteadiness on feet (principal)
CPT/HCPCS: 93880

== ENCOUNTER → 2023-10-21 13:10 | Outpatient (CLI) | payer MEDICARE, SELFPAY ==
[2023-10-21 13:18] LABS: Adenovirus,PCR Not Detected (NotDetected); Coronavirus 19, PCR Not Detected (NotDetected); Coronavirus 229E Not Detected (NotDetected); Coronavirus NL63 Not Detected (NotDetected); Coronavirus OC43 Not Detected (NotDetected); Coronovirus HKU1,PCR Not Detected (NotDetected); Human Metapneumovirus Not Detected (NotDetected); Influenza A, PCR Not Detected (NotDetected); Influenza AH1, 2009 Not Detected (NotDetected); Influenza AH1, PCR Not Detected (NotDetected); Influenza AH3,PCR Not Detected (NotDetected); Influenza B, PCR Not Detected (NotDetected); Parainfluenza 1, PCR Not Detected (NotDetected); Parainfluenza 2, PCR Not Detected (NotDetected); Parainfluenza 3, PCR Not Detected (NotDetected); Parainfluenza 4, PCR Not Detected (NotDetected); Rhinovirus/Enterovirus Not Detected (NotDetected)
[2023-10-21 17:40] LABS: Respiratory Syncytial Virus Detected (NotDetected)
== END ==
PROVIDERS: PCP Nurse Practitioner Family; Visit Provider Nurse Practitioner Family
DX: R05.1 Acute cough (principal); B97.4 Respiratory syncytial virus as the cause of diseases classified elsewhere
CPT/HCPCS: 87632; 87635

== ENCOUNTER 2023-10-27 09:46 | Outpatient (RCR) | payer MEDICARE, SELFPAY | END 2023-10-27 11:00 | disposition home or self-care (01) | LOC: PT 09:46 | PROVIDERS: PCP Nurse Practitioner Family; Visit Provider Nurse Practitioner Family | DX: S86.811A Strain of other muscle(s) and tendon(s) at lower leg level, right leg, initial encounter (principal); M79.604 Pain in right leg | CPT/HCPCS: 97163; 97535 ==

== ENCOUNTER 2024-03-24 11:08 | Outpatient (CLI) | payer MEDICARE, SELFPAY ==
--- NOTE | 2024-03-24 | US_ITS ---
FINAL REPORT CLINICAL HISTORY: DM, HLD, HTN, EX SMOKER, 15 CARDIAC STENTS FINDINGS: LOWER EXTREMITY SEGMENTAL PRESSURE MEASUREMENTS Pressure indices are as follows: RIGHT LOWER EXTREMITY: Upper thigh: 1.0 Calf: 0.69 Ankle, posterior tibial artery: 0.64 Ankle, dorsalis pedis: 0.53 Toe: 0.31 Comments: Moderate peripheral vascular disease. LEFT LOWER EXTREMITY: Upper thigh: 1.0 Calf: 0.93 Ankle, posterior tibial artery: 0.83 Ankle, dorsalis pedis: 0.90 Toe: 0.68 Comments: Mild peripheral vascular disease. IMPRESSION: Moderate peripheral vascular disease on the right. Mild peripheral vascular disease on the left. Reviewed, Interpreted and Dictated by Diya Cr MD Transcribed by Susana Her Authenticated and [facility]
== END 2024-03-24 23:59 | disposition home or self-care (01) ==
LOC: RT 11:08
PROVIDERS: PCP Internal Medicine Adolescent Medicine; Visit Provider Nurse Practitioner Family
DX: I73.9 Peripheral vascular disease, unspecified (principal)
CPT/HCPCS: 93923

== ENCOUNTER 2024-04-04 08:53 | Outpatient (POV) | payer MEDICARE, SELFPAY | END 2024-04-04 23:59 | disposition home or self-care (01) | LOC: SC 08:54 | PROVIDERS: Visit Provider Specialist/Technologist | DX: Z00.00 Encounter for general adult medical examination without abnormal findings (principal) ==

== ENCOUNTER 2024-04-24 07:42 | Day surgery (SDC) | payer MEDICARE, SELFPAY ==
[2024-04-24] VITALS (14 sets, daily range): BP systolic 121–171; BP diastolic 57–81; PULSE 60–77; RESP 16–19; TEMP 36.6; O2SAT 94–99; BMI 29.7
--- NOTE | 2024-04-24 07:07 | IR_ITS ---
APPROVED REPORT Patient Location: Outpatient PROCEDURES Pigtail catheter placed in the abdominal aorta Abdominal aortography Repositioning of the catheter in the abdominal aorta Bilateral iliofemoral runoff INDICATION Chantell claudication class III, Abnormal LISA, Peripheral artery disease Informed consent was obtained prior to the procedure. COMPLICATIONS NONE Estimated Blood Loss: LESS THAN 10 ML TECHNIQUE 1% lidocaine used to anesthetize the left femoral groin. The left femoral artery was accessed via the Seldinger technique. 5 [place] sheath is placed in left femoral artery. A pigtail catheter was advanced under fluoroscopic guidance into the mid abdominal aorta and abdominal aortography was performed. Following this the catheter was repositioned and bilateral iliofemoral was performed. At the end the procedure the apparatus was removed the patient was transferred to postop putting in stable condition for sheath on iliac artery and angiography was performed. At the end of the procedure the patient was transferred to the postop holding area in stable condition for sheath removal. ANGIOGRAPHIC RESULTS Suprarenal abdominal aorta is widely patent. Bilateral renal arteries are patent. Infrarenal abdominal aorta is mildly calcified but widely patent. Bilateral common internal and external iliac arteries are widely patent Bilateral femoral arteries are widely patent Bilateral profunda femoris arteries are patent Right superficial femoral artery has proximal 30% stenosis mid vessel 30 to 40% stenoses. At Guillermo's canal of the vessel is widely patent with mild to moderate calcification with an additional popliteal 40% stenosis. At the geniculate level there were are 30 and 40% stenoses. Below the knee the anterior posterior tibialis arteries both appear to be proximally occluded as does the peroneal artery. There is poor runoff below the knee right side Left superficial femoral artery has proximal 50% followed by an eccentric 80% eccentric calcified stenosis followed by an additional 60% stenosis followed by 40% stenoses at Guillermo's canal. Distally the popliteal artery has 60 and 70% stenoses followed by a 90% stenosis at the geniculate level. The PT trunk has a 90% stenosis. The anterior tibialis artery is proximally patent however distal runoff was not achieved due to motion. The peroneal artery is proximally patent however the posterior tibialis artery cannot be appreciated. IMPRESSION Severe left SFA disease as described above Severe disease below the knee bilaterally PLAN 1. Medical management for right leg 2. Patient be brought back in 2 weeks and will undergo shockwave angioplasty followed by drug-coated balloon angioplasty of the proximal left SFA 3. LDL less than 55 to be achieved with high intensity statin 4. Avoidance of tobacco products Electronically signed by : Joesph Aguilar MD 04/24/2024 11:59:10
[2024-04-24 08:27] LABS: Chloride 105 mmol/L (98-107); Potassium 4.3 mmoL/L (3.5-5.1); Sodium 140 mmol/L (136-145)
[2024-04-24 08:30] LABS: Blood Urea Nitrogen 17 mg/dl (9-20); Creatinine Clearance Estimated 73 mL/min (50-200); Estimated Glomerular Filt Rate 93 ml/min (>60); GFR (African American) 113 ML/MIN (>60)
[2024-04-24 08:31] LABS: Anion Gap 14.3 mEq/L (5-15); Basophils # 0.1 K/mm3 (0-0.2); Basophils % 1.1 % (0.1-2.0); Calcium 9.8 mg/dl (8.4-10.2); Carbon Dioxide 25 mmol/L (22.0-30.0); Eosinophils # 0.3 K/mm3 (0.0-0.4); Eosinophils % 5.5 % (0.1-12.0); Glucose 154 mg/dl (74-100); Hematocrit 39.7 % (42.0-52.0); Hemoglobin 12.5 g/dL (14.1-18.0); Lymphocytes # 1.5 K/mm3 (0.7-4.5); Lymphocytes % 24.2 % (10-50); Mean Corpuscular HGB Conc 31.5 g/dL (31.8-35.4); Mean Corpuscular Volume 76.3 fl (80-94); Mean Platelet Volume 7.9 fl (7.4-10.4); Monocytes # 0.6 K/mm3 (0.1-1.0); Monocytes % 10.1 % (1.7-9.3); Neutrophils # 3.6 K/mm3 (1.8-7.8); Neutrophils % 59.2 % (37.0-80.0); Platelet Count 249 K/mm3 (142-424); Red Blood Count 5.21 M/mm3 (4.60-6.20)
[2024-04-24] MEDS: LIDOCAINE 1% 10ML MDV 20 ML IJ (10:59)
[2024-04-24] MEDS: diphenhydrAMINE 50MG/ML VIAL 50 MG IV (10:59)
[2024-04-24] MEDS: 0.9 % SODIUM CHLORIDE 500 ML 25 ML IV (11:00)
[2024-04-24] MEDS: MIDAZOLAM HCL 1MG/1ML 5ML VIAL 1 MG IV (11:00)
[2024-04-24] MEDS: HEPARIN 1,000 UNITS/500ML NS (CATH LAB) 3000 UNIT IV (11:00)
[2024-04-24] MEDS: FENTANYL 100MCG/2ML VIAL 50 MCG IV (11:00)
[2024-04-24] MEDS: IOHEXOL-240 100ML BOTTLE 110 ML IV (13:23)
== END 2024-04-24 14:40 | disposition home or self-care (01) ==
PROVIDERS: PCP Internal Medicine Adolescent Medicine; Visit Provider Internal Medicine
DX: I70.213 Atherosclerosis of native arteries of extremities with intermittent claudication, bilateral legs (principal); Z79.899 Other long term (current) drug therapy; Z79.01 Long term (current) use of anticoagulants; Z95.0 Presence of cardiac pacemaker; I10 Essential (primary) hypertension; I25.10 Atherosclerotic heart disease of native coronary artery without angina pectoris; E11.9 Type 2 diabetes mellitus without complications; I48.0 Paroxysmal atrial fibrillation; I65.23 Occlusion and stenosis of bilateral carotid arteries
CPT/HCPCS: 36247; 75625; 75716; 80048; 85025; 99152; C1725; C1769; C1894; J1644; Q9966

== ENCOUNTER 2024-05-03 09:31 | Outpatient (CLI) | payer MEDICARE, SELFPAY ==
--- NOTE | 2024-05-03 09:31 | CT_ITS ---
FINAL REPORT TECHNIQUE: Multiple axial CT sections were performed from the foramen magnum to the vertex. Coronal reformatted images were also obtained. Precontrast and postcontrast injection images were obtained. This study was performed with technique to keep radiation doses as low as reasonably achievable, (ALARA). Individualized dose reduction techniques using automated exposure control or adjustment of mA and/or kV according to the patient size were employed. CLINICAL HISTORY: rule out acoustic neuroma FINDINGS: There is atrophy with mild ischemic changes. The ventricles are normal in size. There is no evidence of hemorrhage. No masses are identified. There is a small chronic left caudate lacunar infarct. No extra-axial fluid collection is seen. The sinuses are normal. No osseous abnormality is seen on the bone window images. Postcontrast images demonstrate no abnormal enhancement. IMPRESSION: Atrophy and mild ischemic changes. No intracranial abnormality identified. Reviewed, Interpreted and Dictated by Ken Cornejo III, MD Transcribed by Susana Her Authenticated and [facility]
[2024-05-03] MEDS: IOPAMIDOL-300 (61%) 100ML VIAL 100 ML IV (09:51)
[2024-05-03] MEDS: SODIUM CHLORIDE 0.9% 10ML SYR (RAD ONLY) 10 ML IV (09:51)
== END 2024-05-03 23:59 | disposition home or self-care (01) ==
LOC: RAD 09:31
PROVIDERS: PCP Internal Medicine Adolescent Medicine; Visit Provider Nurse Practitioner
DX: H91.23 Sudden idiopathic hearing loss, bilateral (principal)
CPT/HCPCS: 70470; Q9967

== ENCOUNTER 2024-05-18 12:05 | Observation (INO) | payer MEDICARE, SELFPAY ==
[2024-05-18] VITALS (21 sets, daily range): BP systolic 106–150; BP diastolic 52–79; PULSE 56–75; RESP 15–19; TEMP 36.4–36.8; O2SAT 95–98; BMI 29.6; BMI 29.0
--- NOTE | 2024-05-18 07:15 | IR_ITS ---
APPROVED REPORT Patient Location: Outpatient Production Manager: MARGA Ward RT (R) PROCEDURES Catheter placed in the left superficial femoral artery Left superficial femoral artery selective angiogram Intravascular lithotripsy to the left superficial femoral artery and left popliteal artery Drug-coated balloon angioplasty to the left superficial femoral artery and left popliteal artery INDICATION Peripheral artery disease, Extensive calcification throughout the SFA and popliteal artery, Colbert claudication class III Informed consent was obtained prior to the procedure. COMPLICATIONS NONE Estimated Blood Loss: LESS THAN 10 ML TECHNIQUE 1% lidocaine used to size right groin the right femoral artery is accessed via the Salinger technique and a 6 Monegasque sheath is placed in the right femoral artery. A rim catheter was used to cannulate the left common iliac artery and an advantage wire was advanced into the SFA which allowed the short 6 Monegasque sheath to be exchanged for 45 cm destination 6 Monegasque sheath. Therapeutic heparin was then administered giving a therapeutic ACT. An 014 wire was then passed into the popliteal artery and a 7 mm x 60 mm shockwave intravascular lithotripsy balloon was deployed at 4 joseph up and down the SFA and popliteal artery reducing the stenosis. Following this a 6 mm x 200 mm drug-coated balloon was deployed in the popliteal artery back into the SFA at 10 joseph. An additional 6 mm x 250 mm drug-coated balloon was placed proximal to this extending back into the proximal SFA and deployed at 10 joseph for 3 minutes. Excellent angiographic results were obtained at the end the procedure there was an attempt to achieve hemostasis with Angio-Seal device however the device did not deploy therefore the apparatus was removed the sheath had already been removed hemostasis was achieved using manual pressure patient transferred to the postop putting in stable condition IMPRESSION Successful intravascular lithotripsy to the left SFA and left popliteal artery followed by drug-coated balloon angioplasty to the left SFA and left popliteal artery PLAN 1. Patient has a 6 Monegasque manual hold and should be monitored overnight based on his age and comorbidities. 2. Continue anticoagulation 3. Supportive care overnight 4. Recheck chemistry and CBC in the morning Electronically signed by : Joesph Aguilar MD 05/18/2024 11:31:33
[2024-05-18 08:28] LABS: Basophils % 0.6 % (0.1-2.0); Eosinophils # 0.4 K/mm3 (0.0-0.4); Eosinophils % 6.2 % (0.1-12.0); Hematocrit 38.4 % (42.0-52.0); Hemoglobin 12.4 g/dL (14.1-18.0); Lymphocytes # 1.6 K/mm3 (0.7-4.5); Lymphocytes % 25.9 % (10-50); Mean Corpuscular HGB Conc 32.2 g/dL (31.8-35.4); Mean Corpuscular Volume 77.7 fl (80-94); Mean Platelet Volume 8.1 fl (7.4-10.4); Monocytes # 0.5 K/mm3 (0.1-1.0); Monocytes % 8.2 % (1.7-9.3); Neutrophils # 3.7 K/mm3 (1.8-7.8); Neutrophils % 59.1 % (37.0-80.0); Platelet Count 277 K/mm3 (142-424); Red Blood Count 4.95 M/mm3 (4.60-6.20); Red Cell Distribution Width 16.3 % (11.5-17.5); White Blood Count 6.2 K/mm3 (4.8-10.8)
[2024-05-18 08:43] LABS: Chloride 106 mmol/L (98-107); Potassium 3.8 mmoL/L (3.5-5.1); Sodium 140 mmol/L (136-145)
[2024-05-18 08:46] LABS: Anion Gap 10.8 mEq/L (5-15); Blood Urea Nitrogen 23 mg/dl (9-20); Carbon Dioxide 27 mmol/L (22.0-30.0); Creatinine Clearance Estimated 73 mL/min (50-200); Estimated Glomerular Filt Rate 93 ml/min (>60); GFR (African American) 113 ML/MIN (>60)
[2024-05-18 08:47] LABS: Calcium 9.5 mg/dl (8.4-10.2); Glucose 168 mg/dl (74-100)
[2024-05-18] MEDS: HEPARIN 1,000 UNITS/500ML NS (CATH LAB) 3000 UNIT IV (09:38)
[2024-05-18] MEDS: LIDOCAINE 1% 10ML MDV 20 ML IJ (09:39)
[2024-05-18] MEDS: 0.9 % SODIUM CHLORIDE 500 ML 25 ML IV (09:39)
[2024-05-18] MEDS: diphenhydrAMINE 50MG/ML VIAL 50 MG IV (09:39)
[2024-05-18] MEDS: FENTANYL 100MCG/2ML VIAL 50 MCG IV (10:03)
[2024-05-18] MEDS: MIDAZOLAM HCL 1MG/1ML 5ML VIAL 1 MG IV (10:05)
[2024-05-18] MEDS: MIDAZOLAM 2MG/2ML VIAL 1 MG IV (10:56)
[2024-05-18] MEDS: FENTANYL 100MCG/2ML VIAL 25 MCG IV (10:57)
[2024-05-18] MEDS: IOPAMIDOL-370 (76%);100ML BOTTLE 150 ML IV (12:34)
[2024-05-18 12:35] LABS: CATHL Activated Clotting Time 317 SEC (74-125)
--- NOTE | 2024-05-18 12:45 | PC.NURSE ---
pt to the floor vss.
--- NOTE | 2024-05-18 12:47 | HMH.PHAINT1 ---
Pharmacy Intervention Comments: MEDICATION RECONCILIATION COMPLETED ON PATIENT USING EXTERNAL FILL HISTORY FROM PHARMACY. -[facility], IVYD
[2024-05-18] MEDS: ACETAMINOPHEN 325MG TAB 650 MG PO (14:04)
[2024-05-18 17:08] LABS: POC Glucose,Bedside 147 (70-110)
--- NOTE | 2024-05-18 17:08 | EXP.HP ---
History of Present Illness *Admission Date: 05/18/24 *Reason for visit:: PAD *History of present illness: Patient is a 79-year-old male with past medical history of PAD, CAD, atrial fibrillation, diabetes mellitus who presented to hospital for catheterization procedure for peripheral artery disease. Patient at time of my evaluation denies chest pain shortness of breath nausea vomiting diarrhea constipation dysuria fevers and chills. Patient was admitted for observation overnight for cardiology. [facility] Disclaimer: The information contained in this section may have been updated after the patient was seen, as this information can be updated by other users. Medical History Abnormal angiogram Asymmetrical hearing loss Chronic dysfunction of both eustachian tubes Middle ear effusion Hearing loss decreased hearing Unsteady gait H/O cardiac pacemaker Dyspnea Pain in pacemaker pocket Dyspnea Cardiac pacemaker in situ Family History Other Diabetes Social History (Updated 05/18/24 @ 13:24 by Paty Hameed RN) Smoking Status: Never smoker alcohol intake: never counseling provided: none substance use type: denies use current occupational status: other Travel in the last 8 weeks: Inside the [place] household members: spouse housing: house current occupational exposures/hazards: No caffeine: Yes Review of Systems Review of Systems Review of systems:: pertinent systems reviewed and negative unless documented below Meds Home Medications and Allergies Home Medications Medication Instructions Recorded Confirmed Type dapagliflozin propanediol 10 mg 10 mg PO DAILY 04/05/23 05/18/24 History tablet (Farxiga) metformin 500 mg tablet,extended 1,000 mg PO BID 04/05/23 05/18/24 History release 24 hr rosuvastatin 10 mg tablet 10 mg PO DAILY 04/05/23 05/18/24 History losartan 50 mg tablet 50 mg PO DAILY #90 tabs 01/31/24 05/18/24 Rx semaglutide 0.25 mg or 0.5 mg (2 0.25 mg SQ WEEKLY 04/04/24 05/18/24 History mg/3 mL) subcutaneous pen injector (Ozempic) clopidogrel 75 mg tablet 75 mg PO DAILY 05/18/24 05/18/24 History diltiazem HCl 360 mg capsule,24 360 mg PO DAILY 05/18/24 05/18/24 History hr,extended release furosemide 20 mg tablet 20 mg PO DAILY 05/18/24 05/18/24 History linagliptin 5 mg tablet (Tradjenta) 5 mg PO DAILY 05/18/24 05/18/24 History nitroglycerin 0.4 mg sublingual 0.4 mg sublingual Q5MINP PRN Chest 05/18/24 05/18/24 History tablet Pain pantoprazole 40 mg tablet,delayed 40 mg PO DAILY 05/18/24 05/18/24 History release rivaroxaban 20 mg tablet (Xarelto) 20 mg PO QPMWITHMEAL 05/18/24 05/18/24 History sotalol 120 mg tablet 120 mg PO BID 05/18/24 05/18/24 History New Prescriptions to Start Prescriptions: Allergies Allergy/AdvReac Type Severity Reaction Status Date / Time amoxicillin Allergy Mild Hives Verified 05/08/24 10:14 Exam Data for Last 24 hours Vital signs and Labs for Last 24 Hours: Temp Pulse Resp BP Pulse Ox O2 Del Method 97.6 F 60 18 106/52 L 98 Room Air 05/18/24 15:40 05/18/24 16:00 05/18/24 15:40 05/18/24 15:40 05/18/24 15:40 05/18/24 17:00 Laboratory Results - last 24 hr 05/18/24 08:15: WBC 6.2, RBC 4.95, Hgb 12.4 L, Hct 38.4 L, MCV 77.7 L, MCH 25.0 L, MCHC 32.2, RDW 16.3, Plt Count 277, MPV 8.1, Neut % (Auto) 59.1, Lymph % (Auto) 25.9, [place] % (Auto) 8.2, Eos % (Auto) 6.2, Baso % (Auto) 0.6, Neut # (Auto) 3.7, Lymph # (Auto) 1.6, [place] # (Auto) 0.5, Eos # (Auto) 0.4, Baso # (Auto) 0.0, Sodium 140, Potassium 3.8, Chloride 106, Carbon Dioxide 27, Anion Gap 10.8, BUN 23 H, Creatinine 0.80, Estimated Creat Clear 73, Estimated GFR 93, Est GFR ( Amer) 113, Glucose 168 H, Calcium 9.5 05/18/24 10:06: Activated Clotting Time 317 H* I & O for Last 24 hours: Intake & Output 05/15/24 05/16/24 05/17/24 05/18/24 23:59 23:59 23:59 23:59 Output Total 0 / 0 Balance 0 / 0 Weight 81.76 kg Constitutional Constitutional: no acute distress *Routine HEENT Exam Head: Present normocephalic Eye: Present EOMI and PERRL ENT: Present mucous membranes moist *Routine Neck Exam Neck: Present supple; Absent lymphadenopathy *Routine Respiratory Exam Respiratory: Present CTA bilaterally *Routine Cardiovascular Exam Cardiovascular: Present RRR *Routine Abdominal Exam Abdominal: Present soft and normoactive bowel sounds; Absent tenderness *Routine Rectal Exam Rectal:: deferred *Routine Genitalia Exam Genitalia:: deferred *Routine Extremities Exam Extremities: Absent cyanosis, clubbing or edema *Routine Skin Exam Skin: Present warm; Absent rash *Routine Neurological Exam Neurological: Present alert and oriented X3 Assessment and Plan *Assessment and plan (1) Claudication of both lower extremities: Status: Acute Category: Medical Code(s): I73.9 - Peripheral vascular disease, unspecified (2) Peripheral artery disease: Status: Acute Category: Medical Code(s): I73.9 - Peripheral vascular disease, unspecified (3) CAD (coronary artery disease): Status: Chronic Qualifiers: Associated angina: without angina Coronary Disease-Associated Artery/Lesion type: mcgrath artery [place] vs. transplanted heart: mcgrath heart Qualified Code(s): I25.10 - Atherosclerotic heart disease of mcgrath coronary artery without angina pectoris Category: Medical Code(s): I25.10 - Atherosclerotic heart disease of mcgrath coronary artery without angina pectoris (4) Diabetes mellitus: Status: Chronic Qualifiers: Diabetes mellitus complication status: with other specified complication Diabetes mellitus jail insulin use: without joint terminal attack controller use Diabetes mellitus type: type 2 Qualified Code(s): E11.69 - Type 2 diabetes mellitus with other specified complication Category: Medical Code(s): E11.9 - Type 2 diabetes mellitus without complications (5) Hyperlipidemia: Status: Chronic Qualifiers: Hyperlipidemia type: mixed hyperlipidemia Qualified Code(s): E78.2 - Mixed hyperlipidemia Category: Medical Code(s): E78.5 - Hyperlipidemia, unspecified (6) Atrial fibrillation: Status: Chronic Qualifiers: Atrial fibrillation type: paroxysmal Qualified Code(s): I48.0 - Paroxysmal atrial fibrillation Category: Medical Code(s): I48.91 - Unspecified atrial fibrillation Plan Patient is a 79-year-old male with past medical history of PAD, CAD, atrial fibrillation, diabetes mellitus who presented to hospital for catheterization procedure for peripheral artery disease. Patient at time of my evaluation denies chest pain shortness of breath nausea vomiting diarrhea constipation dysuria fevers and chills. Patient was admitted for observation overnight for cardiology. Assessment and plan PAD status post Balloon angioplasty CAD Continue Plavix, home Xarelto Cardizem, Lasix, statin Diabetes mellitus Insulin sliding scale Hypertension Resume losartan Paroxysmal atrial fibrillation Resume home Xarelto, sotalol Hyperlipidemia -Statin DVT prophylaxis-on Xarelto
[2024-05-18] MEDS: PATIENT'S OWN HOME MEDICATION (Rivaroxaban [Xarelto] 20 mg tablet) 20 EACH PO (17:46)
[2024-05-18 20:48] LABS: POC Glucose,Bedside 193 (70-110)
[2024-05-18] MEDS: SOTALOL 120 MG 120 EACH PO (21:02)
[2024-05-18] MEDS: ATORVASTATIN 20MG TABLET 20 MG PO (21:04)
[2024-05-18] MEDS: PATIENT'S OWN HOME MEDICATION (Metformin 500 mg tablet extended release 24 hr) 1000 EACH PO (21:04)
[2024-05-19] VITALS (7 sets, daily range): BP systolic 111–131; BP diastolic 55–66; PULSE 60–66; RESP 16–17; TEMP 36.7–37; O2SAT 92–99; BMI 29.0
--- NOTE | 2024-05-19 04:04 | PC.NURSE ---
S/P [place] ANGIOPLASTY OF SFA AND LEFT POPLITEAL 05/18/24. DRSG TO RIGHT GROIN C/D/I. SOME BRUISING NOTED BUT NO ACTIVE BLEEDING. VITAL SIGNS STABLE. AFEBRILE. DENIES PAIN OR DISCOMFORT. NPO SINCE [place] ORDERED.
[2024-05-19 05:44] LABS: POC Glucose,Bedside 142 (70-110)
[2024-05-19 06:53] LABS: Chloride 109 mmol/L (98-107); Potassium 3.6 mmoL/L (3.5-5.1); Sodium 138 mmol/L (136-145)
[2024-05-19 06:56] LABS: Anion Gap 9.6 mEq/L (5-15); Blood Urea Nitrogen 21 mg/dl (9-20); Calcium 8.9 mg/dl (8.4-10.2); Carbon Dioxide 23 mmol/L (22.0-30.0); Creatinine Clearance Estimated 69 mL/min (50-200); Estimated Glomerular Filt Rate 93 ml/min (>60); GFR (African American) 113 ML/MIN (>60); Glucose 126 mg/dl (74-100)
[2024-05-19 06:57] LABS: Basophils % 0.4 % (0.1-2.0); Eosinophils # 0.4 K/mm3 (0.0-0.4); Eosinophils % 4.6 % (0.1-12.0); Hematocrit 33.8 % (42.0-52.0); Lymphocytes # 1.8 K/mm3 (0.7-4.5); Lymphocytes % 21.9 % (10-50); Mean Corpuscular HGB Conc 32.1 g/dL (31.8-35.4); Mean Corpuscular Hemoglobin 24.9 pg (27.0-31.2); Mean Corpuscular Volume 77.5 fl (80-94); Mean Platelet Volume 7.4 fl (7.4-10.4); Monocytes # 0.8 K/mm3 (0.1-1.0); Monocytes % 9.4 % (1.7-9.3); Neutrophils # 5.3 K/mm3 (1.8-7.8); Neutrophils % 63.7 % (37.0-80.0); Platelet Count 240 K/mm3 (142-424); Red Blood Count 4.36 M/mm3 (4.60-6.20); Red Cell Distribution Width 16.3 % (11.5-17.5); White Blood Count 8.4 K/mm3 (4.8-10.8)
[2024-05-19] MEDS: CLOPIDOGREL 75MG TAB 75 MG PO (07:40)
[2024-05-19] MEDS: IRBESARTAN 75MG TABLET 75 MG PO (08:01)
[2024-05-19] MEDS: METFORMIN 500MG TABLET 1000 MG PO (08:01)
[2024-05-19] MEDS: DAPAGLIFLOZIN PROPANEDIOL 10 MG TABLET PO (08:01)
[2024-05-19] MEDS: SOTALOL 80MG TABLET 120 MG PO (08:01)
[2024-05-19] MEDS: FUROSEMIDE 20MG TABLET 20 MG PO (08:01)
[2024-05-19] MEDS: dilTIAZem HCL 180MG CAP.ER.24H 360 MG PO (08:03)
[2024-05-19 08:57] LABS: Hemoglobin 10.9 g/dL (14.1-18.0)
[2024-05-19 09:01] LABS: Direct LDL Cholesterol 68.27 mg/dL (100-129)
[2024-05-19 09:05] LABS: Alanine Aminotransferase 15 U/L (12-78); Albumin Level 3.5 g/dl (3.5-5.0); Alkaline Phosphatase 58 U/L (38-126); Aspartate Amino Transferase 25 U/L (17-59); Bilirubin,Indirect 0.5 mg/dL (0.0-0.9); Bilirubin,Total 0.5 mg/dl (0.2-1.3); Bilirubin,Unconjugated 0.6 mg/dL (0.0-1.1); Chol/HDL Ratio 3.8 (1-3.5); Cholesterol 110 mg/dl (140-200); HDL Cholesterol 29 mg/dl (40-60); Total Protein,Serum 5.8 g/dl (6.3-8.2); Triglycerides 94 mg/dl (30-150); VLDL Cholesterol 19 mg/dL (0-40)
[2024-05-19 10:35] LABS: POC Glucose,Bedside 165 (70-110)
--- NOTE | 2024-05-19 10:43 | EXP.CARD.PN ---
Subjective Subjective Date: 05/19/24 Time: 10:00 Principal diagnosis: PAD s/p stenting Interval history: This is a 79-year-old gentleman who came into the hospital to have bilateral runoff for peripheral arterial disease. He had lithotripsy to the left SFA and left popliteal arteries followed by angioplasty to the left SFA and popliteal arteries. He tolerated the procedure well. This morning he denies any chest pain or pressure. He denies any shortness of breath or edema. He denies any fever, chills, nausea, vomiting, diarrhea, PND orthopnea. He denies any groin pain or tenderness. Exam Data for Last 24 hours Vital signs and Labs for Last 24 Hours: Temp Pulse Resp BP Pulse Ox O2 Del Method 98.1 F 60 17 131/66 98 Room Air 05/19/24 07:59 05/19/24 08:00 05/19/24 07:59 05/19/24 07:59 05/19/24 07:59 05/19/24 09:40 Laboratory Results - last 24 hr 05/18/24 10:06: Activated Clotting Time 317 H* 05/18/24 17:01: POC Glucose 147 H 05/18/24 20:36: POC Glucose 193 H 05/19/24 05:35: POC Glucose 142 H 05/19/24 05:48: WBC 8.4 D, RBC 4.36 L, Hgb 10.9 L D, Hct 33.8 L, MCV 77.5 L, MCH 24.9 L, MCHC 32.1, RDW 16.3, Plt Count 240, MPV 7.4, Neut % (Auto) 63.7, Lymph % (Auto) 21.9, [place] % (Auto) 9.4 H, Eos % (Auto) 4.6, Baso % (Auto) 0.4, Neut # (Auto) 5.3, Lymph # (Auto) 1.8, [place] # (Auto) 0.8, Eos # (Auto) 0.4, Baso # (Auto) 0.0, Sodium 138, Potassium 3.6, Chloride 109 H, Carbon Dioxide 23, Anion Gap 9.6, BUN 21 H, Creatinine 0.80, Estimated Creat Clear 69, Estimated GFR 93, Est GFR ( Amer) 113, Glucose 126 H D, Calcium 8.9, Total Bilirubin 0.5, Direct Bilirubin 0.0, Conjugated Bilirubin 0.0, Indirect Bilirubin 0.5, Unconjugated Bilirubin 0.6, AST 25, ALT 15, Alkaline Phosphatase 58, Total Protein 5.8 L, Albumin 3.5, Triglycerides 94, Cholesterol 110 L, LDL Cholesterol Direct 68.27 L, VLDL Cholesterol 19, HDL Cholesterol 29 L, Cholesterol/HDL Ratio 3.8 H 05/19/24 10:28: POC Glucose 165 H I & O for Last 24 hours: Intake & Output 05/16/24 05/17/24 05/18/24 05/19/24 23:59 23:59 23:59 23:59 Intake Total 420 / 780 840 / 840 Output Total 450 / 450 900 / 900 Balance -30 / 330 -60 / -60 Weight 180 lb 4 oz 180 lb 3.999 oz Constitutional Constitutional: no acute distress and average body habitus *Routine HEENT Exam Head: Present normocephalic and atraumatic ENT: Present mucous membranes moist *Routine Neck Exam Neck: Present supple, full ROM and normal carotid upstroke; Absent JVD, carotid bruit or lymphadenopathy *Routine Respiratory Exam Respiratory: Present CTA bilaterally, normal respiratory effort, able to speak in complete sentences and symmetric chest movement *Routine Cardiovascular Exam Cardiovascular: Present RRR, Normal S1 and Normal S2; Absent murmur or gallop *Routine Abdominal Exam Abdominal: Present soft and normoactive bowel sounds; Absent tenderness, distended or organomegaly *Routine Extremities Exam Extremities: Present full ROM, pulses intact and normal capillary refill; Absent cyanosis, clubbing or edema *Routine Skin Exam Skin: Present intact and warm; Absent erythema *Routine Neurological Exam Neurological: Present alert, oriented X3 and CN II-XII intact; Absent sensory deficit or motor deficit Routine Psychiatric Exam Psychiatric: Present normal affect Progress Note: A&P Assessment and plan (1) Peripheral artery disease: Status: Acute (2) CAD (coronary artery disease): Status: Chronic (3) Diabetes mellitus: Status: Chronic (4) Hyperlipidemia: Status: Chronic (5) Atrial fibrillation: Status: Chronic Assessment and Plan Assessment and Plan for All Diagnoses:: Plan: 1. PAD is status post lithotripsy and an angioplasty to the left SFA and popliteal arteries. He did tolerate this procedure well. The patient will be on Plavix for approximately 30 days status post peripheral intervention. 2. The patient does have a history of coronary artery disease. He denies any chest pain or pressure. Continue Plavix. 3. His blood pressure is well-controlled. Continue Cardizem and losartan. 4. His LDL goal is less than 55. He is on a statin. 5. Patient does have paroxysmal atrial fibrillation. On sotalol and Xarelto for long-term anticoagulation. 6. No further recommendations at this time from a cardiac standpoint. The patient is stable for discharge home today from a cardiac standpoint. The patient can be discharged on the following cardiac medications: Plavix 75 mg daily, Farxiga 10 mg daily, diltiazem 360 mg daily, Lasix 20 mg daily, losartan 50 mg daily, nitroglycerin 0.4 mg sublingual as needed for chest pain, Crestor 10 mg daily, sotalol 120 mg p.o. twice daily and Xarelto 20 mg daily. Thank you for the opportunity to participate in the care of this patient. All recommendations and orders are per Dr. Moreau.
--- NOTE | 2024-05-19 12:42 | P.DS_ITS ---
General Admission date:: 05/18/24 Discharge date: 05/19/24 HPI HPI HPI: Patient is a 79-year-old male with past medical history of PAD, CAD, atrial fibrillation, diabetes mellitus who presented to hospital for catheterization procedure for peripheral artery disease. Patient at time of my evaluation denies chest pain shortness of breath nausea vomiting diarrhea constipation dysuria fevers and chills. Patient was admitted for observation overnight for cardiology. Hospital Course Hospital Course Hospital Course: Patient is a 79-year-old male with past medical history of PAD, CAD, atrial fibrillation, diabetes mellitus who presented to hospital for catheterization procedure for peripheral artery disease. Patient at time of my evaluation denies chest pain shortness of breath nausea vomiting diarrhea constipation dysuria fevers and chills. Patient was admitted for observation overnight for cardiology. Assessment and plan PAD status post Balloon angioplasty CAD Patient had intervention by bilateral runoff for peripheral arterial disease. He had lithotripsy to the left SFA and left popliteal arteries followed by angioplasty to the left SFA and popliteal arteries. He tolerated the procedure well. Continue Plavix, home Xarelto, cardiology evaluated patient deemed patient stable for discharge this morning. On the date of discharge, the patient reported feeling stable. The patient was found not to be in any acute distress, and no new abnormalities on physical examination. Further, the patient expressed appropriate understanding of, and agreement with, the discharge recommendations, medications, and plan. Time spent 37 mins Exam Data for Last 24 hours Vital signs and Labs for Last 24 Hours: Temp Pulse Resp BP Pulse Ox O2 Del Method 98.1 F 61 16 119/59 L 99 Room Air 05/19/24 11:49 05/19/24 11:49 05/19/24 11:49 05/19/24 11:49 05/19/24 11:49 05/19/24 11:50 Laboratory Results - last 24 hr 05/18/24 17:01: POC Glucose 147 H 05/18/24 20:36: POC Glucose 193 H 05/19/24 05:35: POC Glucose 142 H 05/19/24 05:48: WBC 8.4 D, RBC 4.36 L, Hgb 10.9 L D, Hct 33.8 L, MCV 77.5 L, MCH 24.9 L, MCHC 32.1, RDW 16.3, Plt Count 240, MPV 7.4, Neut % (Auto) 63.7, Lymph % (Auto) 21.9, [place] % (Auto) 9.4 H, Eos % (Auto) 4.6, Baso % (Auto) 0.4, Neut # (Auto) 5.3, Lymph # (Auto) 1.8, [place] # (Auto) 0.8, Eos # (Auto) 0.4, Baso # (Auto) 0.0, Sodium 138, Potassium 3.6, Chloride 109 H, Carbon Dioxide 23, Anion Gap 9.6, BUN 21 H, Creatinine 0.80, Estimated Creat Clear 69, Estimated GFR 93, Est GFR ( Amer) 113, Glucose 126 H D, Calcium 8.9, Total [place] 0.5, Direct Bilirubin 0.0, Conjugated Bilirubin 0.0, Indirect Bilirubin 0.5, Unconjugated Bilirubin 0.6, AST 25, ALT 15, Alkaline Phosphatase 58, Total Protein 5.8 L, Albumin 3.5, Triglycerides 94, Cholesterol 110 L, LDL Cholesterol Direct 68.27 L, VLDL Cholesterol 19, HDL Cholesterol 29 L, Cholesterol/HDL Ratio 3.8 H 05/19/24 10:28: POC Glucose 165 H I & O for Last 24 hours: Intake & Output 05/16/24 05/17/24 05/18/24 05/19/24 23:59 23:59 23:59 23:59 Intake Total 420 / 780 840 / 840 Output Total 450 / 450 1500 / 1500 Balance -30 / 330 -660 / -660 Weight 81.76 kg 81.76 kg Constitutional Constitutional: no acute distress *Routine HEENT Exam Head: Present normocephalic Eye: Present EOMI and PERRL ENT: Present mucous membranes moist *Routine Neck Exam Neck: Present supple; Absent lymphadenopathy *Routine Respiratory Exam Respiratory: Present CTA bilaterally *Routine Cardiovascular Exam Cardiovascular: Present RRR *Routine Abdominal Exam Abdominal: Present soft and normoactive bowel sounds; Absent tenderness *Routine Extremities Exam Extremities: Absent cyanosis, clubbing or edema *Routine Skin Exam Skin: Present warm; Absent rash *Routine Neurological Exam Neurological: Present alert and oriented X3 Results Data Completed and Pending Labs on day of discharge: Labs from last 24 hours 05/19/24 05/19/24 05/19/24 10:28 05:48 05:35 WBC 8.4 D RBC 4.36 L Hgb 10.9 L D Hct 33.8 L MCV 77.5 L MCH 24.9 L MCHC 32.1 RDW 16.3 Plt Count 240 MPV 7.4 Neut % (Auto) 63.7 Lymph % (Auto) 21.9 [place] % (Auto) 9.4 H Eos % (Auto) 4.6 Baso % (Auto) 0.4 Neut # (Auto) 5.3 Lymph # (Auto) 1.8 [place] # (Auto) 0.8 Eos # (Auto) 0.4 Baso # (Auto) 0.0 Sodium 138 Potassium 3.6 Chloride 109 H Carbon Dioxide 23 Anion Gap 9.6 BUN 21 H Creatinine 0.80 Estimated Creat Clear 69 Estimated GFR 93 Est GFR ( Amer) 113 Glucose 126 H D POC Glucose 165 H 142 H Calcium 8.9 Total Bilirubin 0.5 Direct Bilirubin 0.0 Conjugated Bilirubin 0.0 Indirect Bilirubin 0.5 Unconjugated Bilirubin 0.6 AST 25 ALT 15 Alkaline Phosphatase 58 Total Protein 5.8 L Albumin 3.5 Triglycerides 94 Cholesterol 110 L LDL Cholesterol Direct 68.27 L VLDL Cholesterol 19 HDL Cholesterol 29 L Cholesterol/HDL Ratio 3.8 H 05/18/24 05/18/24 20:36 17:01 WBC RBC Hgb Hct MCV MCH MCHC RDW Plt Count MPV Neut % (Auto) Lymph % (Auto) [place] % (Auto) Eos % (Auto) Baso % (Auto) Neut # (Auto) Lymph # (Auto) [place] # (Auto) Eos # (Auto) Baso # (Auto) Sodium Potassium Chloride Carbon Dioxide Anion Gap BUN Creatinine Estimated Creat Clear Estimated GFR Est GFR ( Amer) Glucose POC Glucose 193 H 147 H Calcium Total Bilirubin Direct Bilirubin Conjugated Bilirubin Indirect Bilirubin Unconjugated Bilirubin AST ALT Alkaline Phosphatase Total Protein Albumin Triglycerides Cholesterol LDL Cholesterol Direct VLDL Cholesterol HDL Cholesterol Cholesterol/HDL Ratio DS: Diagnosis Discharge Diagnosis (1) Peripheral artery disease: Status: Acute Code(s): I73.9 - Peripheral vascular disease, unspecified (2) CAD (coronary artery disease): Status: Chronic Code(s): I25.10 - Atherosclerotic heart disease of [place] coronary artery without angina pectoris Qualifiers: Associated angina: without angina Coronary Disease-Associated Artery/Lesion type: [place] artery [place] vs. 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 insulin use: without termite control service representative use Qualified Code(s): E11.69 - Type 2 diabetes mellitus with other specified complication (4) Hyperlipidemia: Status: Chronic Code(s): E78.5 - Hyperlipidemia, unspecified Qualifiers: Hyperlipidemia type: mixed hyperlipidemia Qualified Code(s): E78.2 - Mixed hyperlipidemia (5) Atrial fibrillation: Status: Chronic Code(s): I48.91 - Unspecified atrial fibrillation Qualifiers: Atrial fibrillation type: paroxysmal Qualified Code(s): I48.0 - Paroxysmal atrial fibrillation Meds Home Medications and Allergies Home Medications Medication Instructions Recorded Confirmed Type dapagliflozin propanediol 10 mg 10 mg PO DAILY 04/05/23 05/18/24 History tablet (Farxiga) metformin 500 mg tablet,extended 1,000 mg PO BID 04/05/23 05/18/24 History release 24 hr rosuvastatin 10 mg tablet 10 mg PO DAILY 04/05/23 05/18/24 History losartan 50 mg tablet 50 mg PO DAILY #90 tabs 01/31/24 05/18/24 Rx semaglutide 0.25 mg or 0.5 mg (2 0.25 mg SQ WEEKLY 04/04/24 05/18/24 History mg/3 mL) subcutaneous pen injector (Ozempic) clopidogrel 75 mg tablet 75 mg PO DAILY 05/18/24 05/18/24 History diltiazem HCl 360 mg capsule,24 360 mg PO DAILY 05/18/24 05/18/24 History hr,extended release furosemide 20 mg tablet 20 mg PO DAILY 05/18/24 05/18/24 History linagliptin 5 mg tablet (Tradjenta) 5 mg PO DAILY 05/18/24 05/18/24 History nitroglycerin 0.4 mg sublingual 0.4 mg sublingual Q5MINP PRN Chest 05/18/24 05/18/24 History tablet Pain pantoprazole 40 mg tablet,delayed 40 mg PO DAILY 05/18/24 05/18/24 History release rivaroxaban 20 mg tablet (Xarelto) 20 mg PO QPMWITHMEAL 05/18/24 05/18/24 History sotalol 120 mg tablet 120 mg PO BID 05/18/24 05/18/24 History New Prescriptions to Start Prescriptions: Allergies Allergy/AdvReac Type Severity Reaction Status Date / Time amoxicillin Allergy Mild Hives Verified 05/08/24 10:14 Discharge Plan Disposition Patient Disposition: Home, Self-Care Condition: Good Follow up Plan Follow up with: Joesph Aguilar MD [Staff Physician] - 05/30/24 10:00 am Jl Berumen MD [Primary Care Provider] - 05/29/24 3:00 pm Prescriptions/Medication Reconciliation: Continued metformin 500 mg tablet extended release 24 hr 1,000 mg PO BID Hold Instructions: Resume on 04/27/24. rosuvastatin 10 mg tablet 10 mg PO DAILY Farxiga 10 mg tablet 10 mg PO DAILY Ozempic 0.25 mg or 0.5 mg (2 mg/3 mL) pen injector 0.25 mg SQ WEEKLY losartan 50 mg tablet 50 mg PO DAILY Qty: 90 2RF Tradjenta 5 mg tablet 5 mg PO DAILY diltiazem HCl 360 mg capsule,extended release 24 hr 360 mg PO DAILY clopidogrel 75 mg tablet 75 mg PO DAILY sotalol 120 mg tablet 120 mg PO BID pantoprazole 40 mg tablet,delayed release (DR/EC) 40 mg PO DAILY nitroglycerin 0.4 mg tablet, sublingual 0.4 mg SUBLINGUAL Q5MINP PRN (Reason: Chest Pain) furosemide 20 mg tablet 20 mg PO DAILY Xarelto 20 mg tablet 20 mg PO QPMWITHMEAL Problem Reconciliation Problems Reviewed?: Yes Patient Discharge Instructions ACTIVITY: Ambulate as tolerated DIET: continue same diet Patient Instructions: DI for Surgical Site Infection, DI for Moderate Sedation, DI for Post-Surgical Bleeding, DI for Peripheral Vascular Stent Providers Primary Care Provider: Jl Berumen Admit Provider: Dylon Willson Attending Provider: Dylon Willson
--- NOTE | 2024-05-22 15:05 | CARE MANAGER ---
Contacted patient related to hospital discharge. He states he is doing well. He had no new medications and is aware of follow up appointments. Denies questions or concerns. ANGELLA Lim
== END 2024-05-19 14:16 | disposition home or self-care (01) ==
LOC: 2ND 12:06
PROVIDERS: Internal Medicine; Nurse Practitioner Family; Admitting Provider Internal Medicine; PCP Internal Medicine Adolescent Medicine; Visit Provider Internal Medicine
DX: I70.203 Unspecified atherosclerosis of native arteries of extremities, bilateral legs (principal); I25.10 Atherosclerotic heart disease of native coronary artery without angina pectoris; E11.69 Type 2 diabetes mellitus with other specified complication; E78.2 Mixed hyperlipidemia; I48.0 Paroxysmal atrial fibrillation; Z95.0 Presence of cardiac pacemaker; Z79.899 Other long term (current) drug therapy; Z79.01 Long term (current) use of anticoagulants; R26.81 Unsteadiness on feet; I77.1 Stricture of artery; Z79.84 Long term (current) use of oral hypoglycemic drugs
CPT/HCPCS: 36415; 80048; 80061; 80076; 82962; 85025; 85347; 99152; 99153; C1725; C1760; C1766; C1769; C1894; C2623; C9764; G0378; J1644; J2250; J3010; Q9967

== ENCOUNTER 2024-05-29 14:04 | Outpatient (CLI) | payer MEDICARE, SELFPAY ==
[2024-05-29 15:06] LABS: Basophils % 0.5 % (0.1-2.0); Eosinophils # 0.3 K/mm3 (0.0-0.4); Eosinophils % 4.5 % (0.1-12.0); Hematocrit 33.8 % (42.0-52.0); Hemoglobin 10.8 g/dL (14.1-18.0); Lymphocytes # 1.7 K/mm3 (0.7-4.5); Lymphocytes % 23.2 % (10-50); Mean Corpuscular HGB Conc 32.1 g/dL (31.8-35.4); Mean Corpuscular Volume 77.8 fl (80-94); Monocytes # 0.7 K/mm3 (0.1-1.0); Monocytes % 8.9 % (1.7-9.3); Neutrophils # 4.6 K/mm3 (1.8-7.8); Neutrophils % 62.9 % (37.0-80.0); Platelet Count 345 K/mm3 (142-424); Red Blood Count 4.34 M/mm3 (4.60-6.20); Red Cell Distribution Width 17.4 % (11.5-17.5); White Blood Count 7.3 K/mm3 (4.8-10.8)
[2024-05-29 15:34] LABS: Anion Gap 12.4 mEq/L (5-15); Blood Urea Nitrogen 33 mg/dl (9-20); Calcium 10.2 mg/dl (8.4-10.2); Carbon Dioxide 25 mmol/L (22.0-30.0); Chloride 107 mmol/L (98-107); Estimated Glomerular Filt Rate 81 ml/min (>60); GFR (African American) 98 ML/MIN (>60); Glucose 120 mg/dl (74-100); Potassium 4.4 mmoL/L (3.5-5.1); Sodium 140 mmol/L (136-145)
== END 2024-05-29 23:59 | disposition home or self-care (01) ==
LOC: LAB 14:05
PROVIDERS: PCP Internal Medicine Adolescent Medicine; Visit Provider Internal Medicine
DX: I73.9 Peripheral vascular disease, unspecified (principal); E11.69 Type 2 diabetes mellitus with other specified complication
CPT/HCPCS: 36415; 80048; 85025

== ENCOUNTER 2024-06-27 07:14 | Day surgery (SDC) | payer MEDICARE, SELFPAY ==
[2024-06-27 07:17] VITALS: BMI 29.9
[2024-06-27 07:40] LABS: Basophils % 0.5 % (0.1-2.0); Eosinophils # 0.3 K/mm3 (0.0-0.4); Eosinophils % 4.6 % (0.1-12.0); Hematocrit 23.3 % (42.0-52.0); Hemoglobin 7.2 g/dL (14.1-18.0); Lymphocytes # 1.2 K/mm3 (0.7-4.5); Lymphocytes % 21.7 % (10-50); Mean Corpuscular HGB Conc 30.7 g/dL (31.8-35.4); Mean Platelet Volume 9.4 fl (7.4-10.4); Monocytes # 0.5 K/mm3 (0.1-1.0); Monocytes % 8.2 % (1.7-9.3); Neutrophils # 3.6 K/mm3 (1.8-7.8); Neutrophils % 65.1 % (37.0-80.0); Platelet Count 306 K/mm3 (142-424); Red Blood Count 3.11 M/mm3 (4.60-6.20); White Blood Count 5.5 K/mm3 (4.8-10.8)
[2024-06-27 07:41] LABS: Chloride 111 mmol/L (98-107); Potassium 3.9 mmoL/L (3.5-5.1); Sodium 141 mmol/L (136-145)
[2024-06-27 07:44] LABS: Anion Gap 8.9 mEq/L (5-15); Blood Urea Nitrogen 24 mg/dl (9-20); Calcium 8.8 mg/dl (8.4-10.2); Carbon Dioxide 25 mmol/L (22.0-30.0); Creatinine Clearance Estimated 71 mL/min (50-200); Estimated Glomerular Filt Rate 93 ml/min (>60); GFR (African American) 113 ML/MIN (>60); Glucose 124 mg/dl (74-100)
--- NOTE | 2024-06-27 08:20 | SUR.PREOP ---
Dr Aguilar notified of H/H result, Lauren stated to cancelled procedure and send pt down to the cardiology office to see peyton.
== END 2024-06-27 08:30 | disposition home or self-care (01) ==
LOC: CATHLAB 07:15
PROVIDERS: PCP Internal Medicine Adolescent Medicine; Visit Provider Internal Medicine
DX: R06.02 Shortness of breath (principal)
CPT/HCPCS: 36415; 80048; 85025

== ENCOUNTER 2024-06-27 09:57 | Observation (INO) | payer MEDICARE, SELFPAY ==
[2024-06-27] VITALS (13 sets, daily range): BP systolic 105–138; BP diastolic 58–70; PULSE 60–65; RESP 16–18; TEMP 36.4–36.7; O2SAT 97–100; BMI 29.2
--- NOTE | 2024-06-27 10:14 | HMH.PHAINT1 ---
Pharmacy Intervention Comments: MEDICATION RECONCILIATION COMPLETED ON PATIENT USING EXTERNAL FILL HISTORY FROM PHARMACY AND LIST FROM CARDIOLOGY OFFICE. -WESTON TOLEDO, IVYD
--- NOTE | 2024-06-27 11:22 | EXP.SURG.CON ---
History of Present Illness *Admission Date: 06/27/24 *Reason for visit:: Symptomatic anemia *History of present illness: Patient is a 79-year-old from [facility] with history of coronary artery disease with previous drug-eluting stents placed in June 2019. He is also undergone left heart catheterization March 2023. He is on Plavix and Xarelto. He is followed regularly by cardiology. Cardiology performed left lower extremity angioplasty on 04/24/2024. During cardiology outpatient appointment on 06/13/2024 patient described chest pain and pressure with associated shortness of breath with walking. Plan was for another left heart catheterization. This was scheduled for today. He underwent blood work which revealed a hemoglobin of 7.2 with a hematocrit of 23.3%. Given this he was made a direct admit. Patient has a recent baseline hemoglobin of approximately 12. It was 10.9 on 05/19/2024 and 10.8 on 05/29/2024. He had a colonoscopy with Dr. Catracho Ellison on 07/01/2020 at which time he had 3 tubular adenomas removed and 5-year follow-up colonoscopy was recommended. BUN 24 with a creatinine of 0.8. On 05/29/2024 he had a BUN of 33 with a creatinine 0.9. He describes several weeks of melenic stools. Denies hematochezia. No history of ulcers. [facility] Disclaimer: The information contained in this section may have been updated after the patient was seen, as this information can be updated by other users. Medical History Abnormal angiogram Asymmetrical hearing loss Chronic dysfunction of both eustachian tubes Middle ear effusion Hearing loss decreased hearing Unsteady gait H/O cardiac pacemaker Dyspnea Pain in pacemaker pocket Dyspnea Cardiac pacemaker in situ Family History Other Diabetes Social History Smoking Status: Never smoker alcohol intake: never counseling provided: none substance use type: denies use current occupational status: other Travel in the last 8 weeks: Inside the [place] household members: spouse housing: house current occupational exposures/hazards: No caffeine: Yes Meds Home Medications and Allergies Home Medications ?Medication ?Instructions ?Recorded ?Confirmed ?Type dapagliflozin propanediol 10 mg 10 mg PO DAILY 04/05/23 06/27/24 History tablet (Farxiga) metformin 500 mg tablet,extended 1,000 mg PO BID 04/05/23 06/27/24 History release 24 hr rosuvastatin 10 mg tablet 10 mg PO DAILY 04/05/23 06/27/24 History clopidogrel 75 mg tablet 75 mg PO DAILY 05/18/24 06/27/24 History diltiazem HCl 360 mg capsule,24 360 mg PO DAILY 05/18/24 06/27/24 History hr,extended release linagliptin 5 mg tablet (Tradjenta) 5 mg PO DAILY 05/18/24 06/27/24 History pantoprazole 40 mg tablet,delayed 40 mg PO DAILY 05/18/24 06/27/24 History release rivaroxaban 20 mg tablet (Xarelto) 20 mg PO QPMWITHMEAL 05/18/24 06/27/24 History sotalol 120 mg tablet 120 mg PO BID 05/18/24 06/27/24 History isosorbide mononitrate 30 mg 30 mg PO DAILY #30 tabs 06/07/24 06/27/24 Rx tablet,extended release 24 hr nitroglycerin 0.4 mg sublingual 0.4 mg sublingual Q5MINP PRN Chest 06/07/24 06/27/24 Rx tablet Pain #30 tabs New Prescriptions to Start Prescriptions: Allergies Allergy/AdvReac Type Severity Reaction Status Date / Time amoxicillin Allergy Mild Hives Verified 06/27/24 09:20 Exam (Inpt) Vital signs and Labs for Last 24 Hours: Temp Pulse Resp BP Pulse Ox O2 Del Method 97.6 F 62 17 122/62 100 Room Air 06/27/24 10:15 06/27/24 10:15 06/27/24 10:15 06/27/24 10:15 06/27/24 10:15 06/27/24 10:41 I & O for Labs for Last 24 Hours: Intake & Output 06/24/24 06/25/24 06/26/24 06/27/24 11:59 11:59 11:59 11:59 Output Total 0 / 0 Balance 0 / 0 Weight 181 lb 8.987 oz Constitutional: no acute distress Cardiac: Present Reg Rate and Rhythm GI: Present soft; Absent tenderness Assessment and Plan *Assessment and plan (1) Acute blood loss anemia: Status: Acute Category: Medical Code(s): D62 - Acute posthemorrhagic anemia Plan Plan for upper endoscopy tomorrow morning.
--- NOTE | 2024-06-27 12:19 | P.HP_ITS ---
History of Present Illness *Admission Date: 06/27/24 *Reason for visit:: fatigue, black stools *History of present illness: 79-year-old male who presented as outpatient for cardiology. Scheduled to have cath, preprocedure labs obtained showing worsening anemia. Patient also reports having black stools. Decision made to hold on heart cath and medicine was consulted for direct admission and workup of possible GI bleed. Patient reports that he has been more short of breath over the past month. Has been having black stools for a little over a month. Has peripheral artery disease with angioplasty and stents placed approximately 6 weeks ago. Hemoglobin 12.5 at that time, 10.8 1 month ago. Hemoglobin 7.2 today as an outpatient. Reports no abdominal pain, chest pain, nausea or vomiting. Reports intermittent black tarry stools. Is on Xarelto and Plavix. On room air. Hemodynamically stable. Denies any syncope. Last colonoscopy was in June 2020 where he had 3 tubular adenomas removed. Does not report previous EGD. Surgery contacted medicine for direct admission and further management. On arrival to the floor, patient is alert and oriented x 4. Hemodynamically stable. at bedside. [facility] Disclaimer: The information contained in this section may have been updated after the patient was seen, as this information can be updated by other users. Medical History Abnormal angiogram Asymmetrical hearing loss Chronic dysfunction of both eustachian tubes Middle ear effusion Hearing loss Unsteady gait H/O cardiac pacemaker Dyspnea Pain in pacemaker pocket Dyspnea Cardiac pacemaker in situ Family History Other Diabetes Social History Smoking Status: Never smoker alcohol intake: never counseling provided: none substance use type: denies use current occupational status: other Travel in the last 8 weeks: Inside the [place] household members: spouse housing: house current occupational exposures/hazards: No caffeine: Yes Review of Systems Review of Systems Review of systems (narrative): 14 point review of systems performed, pertinent positives and negatives as per HPI Meds Home Medications and Allergies Home Medications ?Medication ?Instructions ?Recorded ?Confirmed ?Type dapagliflozin propanediol 10 mg 10 mg PO DAILY 04/05/23 06/27/24 History tablet (Farxiga) metformin 500 mg tablet,extended 1,000 mg PO BID 04/05/23 06/27/24 History release 24 hr rosuvastatin 10 mg tablet 10 mg PO DAILY 04/05/23 06/27/24 History clopidogrel 75 mg tablet 75 mg PO DAILY 05/18/24 06/27/24 History diltiazem HCl 360 mg capsule,24 360 mg PO DAILY 05/18/24 06/27/24 History hr,extended release linagliptin 5 mg tablet (Tradjenta) 5 mg PO DAILY 05/18/24 06/27/24 History pantoprazole 40 mg tablet,delayed 40 mg PO DAILY 05/18/24 06/27/24 History release rivaroxaban 20 mg tablet (Xarelto) 20 mg PO QPMWITHMEAL 05/18/24 06/27/24 History sotalol 120 mg tablet 120 mg PO BID 05/18/24 06/27/24 History isosorbide mononitrate 30 mg 30 mg PO DAILY #30 tabs 06/07/24 06/27/24 Rx tablet,extended release 24 hr nitroglycerin 0.4 mg sublingual 0.4 mg sublingual Q5MINP PRN Chest 06/07/24 06/27/24 Rx tablet Pain #30 tabs New Prescriptions to Start Prescriptions: Allergies Allergy/AdvReac Type Severity Reaction Status Date / Time amoxicillin Allergy Mild Hives Verified 06/27/24 09:20 Exam Data for Last 24 hours Vital signs and Labs for Last 24 Hours: Temp Pulse Resp BP Pulse Ox O2 Del Method 97.6 F 62 17 122/62 100 Room Air 06/27/24 10:15 06/27/24 10:15 06/27/24 10:15 06/27/24 10:15 06/27/24 10:15 06/27/24 10:41 I & O for Last 24 hours: Intake & Output 06/24/24 06/25/24 06/26/24 06/27/24 23:59 23:59 23:59 23:59 Output Total 0 / 0 Balance 0 / 0 Weight 82.355 kg Constitutional Constitutional: no acute distress, average body habitus and chronically ill appearing *Routine HEENT Exam Head: Present normocephalic Eye: Present EOMI and PERRL ENT: Present mucous membranes moist *Routine Neck Exam Neck: Present supple; Absent lymphadenopathy *Routine Respiratory Exam Respiratory: Present CTA bilaterally; Absent rhonchi, stridor, wheezes or crackles *Routine Cardiovascular Exam Cardiovascular: Present RRR *Routine Abdominal Exam Abdominal: Present soft and normoactive bowel sounds; Absent tenderness *Routine Rectal Exam Rectal:: deferred *Routine Genitalia Exam Genitalia:: deferred *Routine Extremities Exam Extremities: Absent cyanosis, clubbing or edema *Routine Skin Exam Skin: Present warm; Absent rash *Routine Neurological Exam Neurological: Present alert, oriented X3 and moving all extremities; Absent altered mental status Assessment and Plan *Assessment and plan (1) GI bleed: Status: Acute Category: Medical Code(s): K92.2 - Gastrointestinal hemorrhage, unspecified (2) Acute blood loss anemia: Status: Acute Category: Medical Code(s): D62 - Acute posthemorrhagic anemia (3) Peripheral artery disease: Status: Acute Category: Medical Code(s): I73.9 - Peripheral vascular disease, unspecified (4) CAD (coronary artery disease): Status: Chronic Qualifiers: Associated angina: without angina Coronary Disease-Associated Artery/Lesion type: [place] artery [place] vs. transplanted heart: [place] heart Qualified Code(s): I25.10 - Atherosclerotic heart disease of [place] coronary artery without angina pectoris Category: Medical Code(s): I25.10 - Atherosclerotic heart disease of [place] coronary artery without angina pectoris (5) Diabetes mellitus: Status: Chronic Qualifiers: Diabetes mellitus complication status: with other specified complication Diabetes mellitus chcf insulin use: without long distance operator use Diabetes mellitus type: type 2 Qualified Code(s): E11.69 - Type 2 diabetes mellitus with other specified complication Category: Medical Code(s): E11.9 - Type 2 diabetes mellitus without complications (6) Hyperlipidemia: Status: Chronic Qualifiers: Hyperlipidemia type: mixed hyperlipidemia Qualified Code(s): E78.2 - Mixed hyperlipidemia Category: Medical Code(s): E78.5 - Hyperlipidemia, unspecified (7) Atrial fibrillation: Status: Chronic Qualifiers: Atrial fibrillation type: paroxysmal Qualified Code(s): I48.0 - Paroxysmal atrial fibrillation Category: Medical Code(s): I48.91 - Unspecified atrial fibrillation (8) Typical angina: Status: Acute Category: Medical Code(s): I20.9 - Angina pectoris, unspecified Plan Patient is a 79-year-old male with past medical history of PAD, CAD, atrial fibrillation, diabetes mellitus who presented to hospital for catheterization procedure for peripheral artery disease. Labs were obtained today showing new finding of anemia. Discussed case with cardiology, request admission for workup of possible GI bleed. Agreed to admit for further management. Surgery consulted to assist with care, discussed case at admission, anticipate EGD in the morning. Patient reports last dose of Xarelto was taken on Wednesday. Problems addressed as follows: GI bleed Acute blood loss anemia -Hemoglobin down from 12.5-7.2 in 6 weeks. Reporting black stools. -Will type and cross for 2 units, transfuse 1 now. -Holding Xarelto and Plavix. Surgery consulted. Anticipate EGD in the morning. N.p.o. after midnight -MCV 75, will obtain iron studies in the morning. May necessitate iron transfusion. -BUN elevated at 24, disproportionate to creatinine of 0.8. -Pantoprazole load 80 mg IV once, continue 40 mg IV twice daily -CBC, CMP, magnesium ordered for the morning. PAD status post Balloon angioplasty CAD -Cardiology consulted to assist with care -Will hold Plavix and Xarelto at this time. Continue Cardizem, Lasix, statin. Diabetes mellitus Last A1c in the system from 2020, 7.1 at that time. Repeat A1c pending. Will use sliding fingers states at bedtime. Continue home regimen of dapagliflozin, metformin at 1000 mg daily, Tradjenta 5 mg daily Hypertension Paroxysmal atrial fibrillation -Talal 120 mg twice daily, diltiazem 360 mg daily he, isosorbide mononitrate 30 mg daily Hyperlipidemia: Continue Crestor 10 mg daily Full code N.p.o. Anticoagulation contraindicated
[2024-06-27] MEDS: PANTOPRAZOLE SODIUM 80 MG in 0.9 % SODIUM CHLORIDE 100 ML 100 MG IV (13:02)
[2024-06-27] MEDS: 0.9 % SODIUM CHLORIDE 250 ML 25 ML IV (16:04)
--- NOTE | 2024-06-27 17:36 | PC.NURSE ---
A&OX4. TOLERATING RA WELL. INDEPENDENT IN ROOM, BUT DOES HAVE BED SAFETY IN PLACE. HAS HAD NO NEEDS OR C/O THUS FAR THIS SHIFT. TOLERATED LIQUID DIET WELL AND HAS RESTED COMFORTABLY IN BED. IS CURRENTLY RECEIVING A UNIT OF BLOOD. WHEN GOING TO BEGIN TRANSFUSION, UNIT WOULD NOT SCAN. CALLED LAB TO VERIFY OVER THE PHONE AND UPDATE ON ISSUE. AFTER SOME TROUBLE SHOOTING LAB ISSUED THE SECOND UNIT OF BLOOD AVAILABLE FOR THIS PATIENT. CURRENT UNIT VERIFIED, SCANNED AND WORKED PROPERLY. TOLERATING TRANSFUSION WELL. VSS.
[2024-06-27 19:31] LABS: Hematocrit 25.1 % (42.0-52.0); Hemoglobin 7.7 g/dL (14.1-18.0)
[2024-06-27] MEDS: PANTOPRAZOLE 40MG VIAL 40 MG IV (20:39)
[2024-06-27] MEDS: PATIENT'S OWN HOME MEDICATION (Metformin 500 mg tablet extended release 24 hr) 1000 EACH PO (20:40)
[2024-06-27 21:02] LABS: POC Glucose,Bedside 108 (70-110)
[2024-06-28] VITALS (14 sets, daily range): BP systolic 105–128; BP diastolic 48–68; PULSE 60–65; RESP 16–18; TEMP 36.6–37.1; O2SAT 95–99; BMI 29.5
--- NOTE | 2024-06-28 05:15 | PC.NURSE ---
79 yo male pt admitted with anemia, GI bleed. Pt is a/o X 4, able to ambulate to BR with assist x 1. No complaints of pain or soa and has rested well throughout the night. Pt has been NPO since MN
[2024-06-28 06:41] LABS: POC Glucose,Bedside 121 (70-110)
[2024-06-28 06:56] LABS: Basophils % 0.6 % (0.1-2.0); Eosinophils # 0.3 K/mm3 (0.0-0.4); Eosinophils % 4.6 % (0.1-12.0); Hematocrit 26.2 % (42.0-52.0); Lymphocytes # 1.5 K/mm3 (0.7-4.5); Mean Corpuscular HGB Conc 30.5 g/dL (31.8-35.4); Mean Corpuscular Hemoglobin 23.5 pg (27.0-31.2); Mean Corpuscular Volume 77.2 fl (80-94); Mean Platelet Volume 8.6 fl (7.4-10.4); Monocytes # 0.6 K/mm3 (0.1-1.0); Monocytes % 10.9 % (1.7-9.3); Neutrophils # 3.2 K/mm3 (1.8-7.8); Neutrophils % 56.8 % (37.0-80.0); Platelet Count 295 K/mm3 (142-424); Red Cell Distribution Width 17.3 % (11.5-17.5); White Blood Count 5.7 K/mm3 (4.8-10.8)
[2024-06-28 07:08] LABS: Albumin Level 3.6 g/dl (3.5-5.0); Chloride 111 mmol/L (98-107); Potassium 3.6 mmoL/L (3.5-5.1); Sodium 139 mmol/L (136-145)
[2024-06-28 07:11] LABS: Alanine Aminotransferase 11 U/L (12-78); Albumin/Globulin Ratio 1.6 (1.1-1.8); Alkaline Phosphatase 40 U/L (38-126); Anion Gap 7.6 mEq/L (5-15); Aspartate Amino Transferase 22 U/L (17-59); Bilirubin,Total 0.8 mg/dl (0.2-1.3); Blood Urea Nitrogen 15 mg/dl (9-20); Calcium 8.5 mg/dl (8.4-10.2); Carbon Dioxide 24 mmol/L (22.0-30.0); Creatinine Clearance Estimated 71 mL/min (50-200); Estimated Glomerular Filt Rate 93 ml/min (>60); GFR (African American) 113 ML/MIN (>60); Globulin 2.2 g/dL (1.3-3.2); Glucose 96 mg/dl (74-100); Total Protein,Serum 5.8 g/dl (6.3-8.2)
--- NOTE | 2024-06-28 07:27 | P.PN_ITS ---
Subjective Patient reports: feels better Exam Data for Last 24 hours Vital signs and Labs for Last 24 Hours: Temp Pulse Resp BP Pulse Ox O2 Del Method 98.4 F 64 16 123/62 99 Room Air 06/28/24 05:42 06/28/24 05:42 06/28/24 05:42 06/28/24 05:42 06/28/24 05:42 06/28/24 07:00 Laboratory Results - last 24 hr 06/27/24 07:30: Blood Type Confirm O Positive 06/27/24 12:40: Blood Type O Positive, Antibody Screen Negative, Crossmatch (AHG) See Detail 06/27/24 19:17: Hgb 7.7 L, Hct 25.1 L 06/27/24 20:43: POC Glucose 108 06/28/24 06:11: WBC 5.7, RBC 3.40 L, Hgb 8.0 L, Hct 26.2 L, MCV 77.2 L, MCH 23.5 L, MCHC 30.5 L, RDW 17.3, Plt Count 295, MPV 8.6, Neut % (Auto) 56.8, Lymph % (Auto) 27.0, B[place]soe % (Auto) 10.9 H, Eos % (Auto) 4.6, Baso % (Auto) 0.6, Neut # (Auto) 3.2, Lymph # (Auto) 1.5, [place] # (Auto) 0.6, Eos # (Auto) 0.3, Baso # (Auto) 0.0 06/28/24 06:26: POC Glucose 121 H I & O for Last 24 hours: Intake & Output 06/25/24 06/26/24 06/27/24 06/28/24 11:59 11:59 11:59 11:59 Intake Total 1020 / 1020 Output Total 0 / 0 0 / 0 Balance 0 / 0 1020 / 1020 Weight 181 lb 8.987 oz 183 lb 11.2 oz Constitutional Constitutional: no acute distress *Routine Respiratory Exam Respiratory: Absent respiratory distress *Routine Cardiovascular Exam Cardiovascular: Absent tachycardia Progress Note: A&P Assessment and plan (1) GI bleed: Status: Acute (2) Acute blood loss anemia: Status: Acute Assessment and Plan Assessment and Plan for All Diagnoses:: Continue proton pump inhibition Continue serial hemoglobin/hematocrit Esophagogastroduodenoscopy this AM I have discussed the risks and benefits including, but not limited to: Bleeding Infection Damage to surrounding tissue Inherent risks of sedation The patient agrees to proceed.
[2024-06-28 07:40] LABS: Iron 26 ug/dL (49-181)
--- NOTE | 2024-06-28 07:48 | HMH.SCOPE ---
Procedure: Date: 06/28/24 Patient Date of :: 1945 Procedure Performed:: Esophagogastroduodenoscopy with biopsy Indications:: Anemia Gastrointestinal hemorrhage Performing Provider:: Simon Browning MD Referring Provider:: . Sedation:: Monitored anesthesia care Procedure:: After informed consent was obtained the patient was taken to the endoscopy suite. Sedation ensued after the patient was transferred to the left lateral decubitus position. Pulse, blood pressure, and oxygen saturation were monitored throughout the procedure. The endoscope was advanced beyond the duodenal bulb. Retroflexion within the gastric lumen was accomplished. The gastroscope was carefully removed and the patient was transferred to recovery in stable condition. Please see findings and specimens below for detail. Findings:: Gastroesophageal junction at 40 cm Sliding hiatal hernia Focal increased gastritis versus small/shallow/healed antral ulcer No evidence of active/recent hemorrhage Specimens:: Antral biopsy Recommendations:: Follow-up pathology Continue serial hemoglobin/hematocrit Consider continued evaluation for additional source (UGI/SBFT, capsule endoscopy, etc.) Complications:: No immediate Estimated blood obtained (mL): 1 Colonoscopy Component Colonoscopy Component Was a colonoscopy performed during today's procedure?: No
[2024-06-28 07:50] LABS: Total Iron Binding Capacity 424 ug/dL (261-462)
--- NOTE | 2024-06-28 07:53 | EXP.ANES.CKL ---
[facility] Disclaimer: The information contained in this section may have been updated after the patient was seen, as this information can be updated by other users. Medical History Abnormal angiogram Asymmetrical hearing loss Chronic dysfunction of both eustachian tubes Middle ear effusion Hearing loss Unsteady gait H/O cardiac pacemaker Dyspnea Pain in pacemaker pocket Dyspnea Cardiac pacemaker in situ Family History Other Diabetes Social History Smoking Status: Never smoker alcohol intake: never counseling provided: none substance use type: denies use current occupational status: other Travel in the last 8 weeks: Inside the [place] household members: spouse housing: house current occupational exposures/hazards: No caffeine: Yes [facility] Anesthesia Checklist Patient Identification Patient Identification: Arm Band Structural Data Admitted From: Home Planned Operative Procedure/s: EGD Consent for Planned Operative Procedure(s) Verified: Yes Verified Documents: Surgical Consent and History and Physical NPO Status Verified Time NPO: 00:00 Additional verifications Anesthesia Reactions: No Airway Assessment Mallampati Score:: Class II C-Spine Mobility Assessed: Yes TMJ Mobility Assessed: Yes Dentition: Edentulous Neurological Assessment Level of Consciousness: Awake, Alert and Appropriate Anesthesia Plan Anesthesia Risk discussed: Yes Anesthesia Plan: Verified ASA Class: III Anesthesia Type: MAC
--- NOTE | 2024-06-28 07:54 | PC.NURSE ---
received report from xander calderon
[2024-06-28 08:16] LABS: Ferritin 6.33 ng/ml (17.9-464)
[2024-06-28] MEDS: DILTIAZEM 360 MG 1 EACH PO (08:33)
[2024-06-28] MEDS: METFORMIN 500MG TABLET 1000 MG PO (08:33)
[2024-06-28] MEDS: SOTALOL 120 MG 1 EACH PO (08:34)
[2024-06-28] MEDS: *PAT OWN MED* ISOSORBIDE MONO 30MG TAB.ER.24H 30 MG PO (08:34)
[2024-06-28] MEDS: LINAGLIPTIN 5 MG 5 EACH PO (08:34)
[2024-06-28] MEDS: SODIUM CHLORIDE 0.9% 10ML VIAL 10 ML IV (08:35)
[2024-06-28] MEDS: *PAT OWN MED* DAPAGLIFLOZIN PROPANEDIOL 10 MG TABLET PO (08:35)
[2024-06-28] MEDS: PANTOPRAZOLE 40MG VIAL 40 MG IV (08:35)
[2024-06-28 11:29] LABS: POC Glucose,Bedside 110 (70-110)
[2024-06-28] MEDS: RIVAROXABAN 10MG TABLET 20 MG PO (11:45)
[2024-06-28 12:11] LABS: Hemoglobin A1C 6.1 % (4.0-6.0)
--- NOTE | 2024-06-28 12:13 | EXP.DC.SUM ---
General Admission date:: 06/27/24 Discharge date: 06/28/24 HPI HPI HPI: 79-year-old male who presented as outpatient for cardiology. Scheduled to have cath, preprocedure labs obtained showing worsening anemia. Patient also reports having black stools. Decision made to hold on heart cath and medicine was consulted for direct admission and workup of possible GI bleed. Patient reports that he has been more short of breath over the past month. Has been having black stools for a little over a month. Has peripheral artery disease with angioplasty and stents placed approximately 6 weeks ago. Hemoglobin 12.5 at that time, 10.8 1 month ago. Hemoglobin 7.2 today as an outpatient. Reports no abdominal pain, chest pain, nausea or vomiting. Reports intermittent black tarry stools. Is on Xarelto and Plavix. On room air. Hemodynamically stable. Denies any syncope. Last colonoscopy was in June 2020 where he had 3 tubular adenomas removed. Does not report previous EGD. Surgery contacted medicine for direct admission and further management. On arrival to the floor, patient is alert and oriented x 4. Hemodynamically stable. at bedside. Hospital Course Hospital Course Hospital Course: Patient is a 79-year-old male with past medical history of PAD, CAD, atrial fibrillation, diabetes mellitus who presented to hospital for catheterization procedure for peripheral artery disease. Labs were obtained today showing new finding of anemia. Discussed case with cardiology, request admission for workup of possible GI bleed. Agreed to admit for further management. Surgery consulted to assist with care, discussed case at admission, anticipate EGD in the morning. Patient reports last dose of Xarelto was taken on Wednesday. EGD with no active bleeding. Did have a small area of gastritis with appears to be resolving ulcer. Will continue medical management for gastritis with pantoprazole. Cardiology recommends resuming anticoagulation given patient's risk factors. Switch to Eliquis and resume Plavix. Close follow-up with cardiology. Repeat CBC ordered for the morning to monitor hemoglobin. No active signs of bleeding, no bloody stools. Stable to discharge home. Problems addressed as follows: GI bleed Acute blood loss anemia - Hemoglobin down from 12.5-7.2 in 6 weeks. Reporting black stools. No further black stools on admission. Typed and crossed for 2 units. Transfused during admission. Held Xarelto and Plavix. Surgery was consulted and EGD performed morning after admission. Patient had no active sites of bleeding. Small area of irritation that may be a healing ulcer. Recommend continuing pantoprazole 40 mg twice daily. Patient also has low iron. Ferritin 6.3, iron saturation 6.3, iron level 26. Would benefit from outpatient iron infusions, will defer to PCP. Stable hemoglobin with repeat levels on afternoon of discharge consistently above 8. Repeat labs ordered for the morning to monitor CBC. Follow-up with surgery as an outpatient. PAD status post Balloon angioplasty CAD -Cardiology consulted to assist with care. Held Plavix and Xarelto during admission. Given no active signs of bleeding, recommend transitioning to Eliquis for decreased risk of GI bleed. Resume Plavix. Diabetes mellitus Last A1c in the system from 2020, 7.1 at that time. Repeat A1c of 6.1. Sliding scale insulin during admission. Resume home regimen of dapagliflozin, metformin at 1000 mg daily, Tradjenta 5 mg daily Hypertension Paroxysmal atrial fibrillation -sotalol 120 mg twice daily, diltiazem 360 mg daily he, isosorbide mononitrate 30 mg daily Hyperlipidemia: Continue Crestor 10 mg daily Total time spent on discharge 32 minutes in counseling, documentation, chart review, and direct care with patient. Exam Data for Last 24 hours Vital signs and Labs for Last 24 Hours: Temp Pulse Resp BP Pulse Ox O2 Del Method O2 Flow Rate 98.6 F 60 16 105/55 L 97 Room Air 4 06/28/24 12:00 06/28/24 12:00 06/28/24 12:00 06/28/24 12:00 06/28/24 12:00 06/28/24 12:00 06/28/24 07:34 Laboratory Results - last 24 hr 06/27/24 07:30: Blood Type Confirm O Positive 06/27/24 12:40: Blood Type O Positive, Antibody Screen Negative, Crossmatch (AHG) See Detail 06/27/24 19:17: Hgb 7.7 L, Hct 25.1 L 06/27/24 20:43: POC Glucose 108 06/28/24 06:11: WBC 5.7, RBC 3.40 L, Hgb 8.0 L, Hct 26.2 L, MCV 77.2 L, MCH 23.5 L, MCHC 30.5 L, RDW 17.3, Plt Count 295, MPV 8.6, Neut % (Auto) 56.8, Lymph % (Auto) 27.0, [place] % (Auto) 10.9 H, Eos % (Auto) 4.6, Baso % (Auto) 0.6, Neut # (Auto) 3.2, Lymph # (Auto) 1.5, [place] # (Auto) 0.6, Eos # (Auto) 0.3, Baso # (Auto) 0.0, Sodium 139, Potassium 3.6, Chloride 111 H, Carbon Dioxide 24, Anion Gap 7.6, BUN 15 D, Creatinine 0.80, Estimated Creat Clear 71, Estimated GFR 93, Est GFR ( Amer) 113, Glucose 96 D, Hemoglobin A1c 6.1 H, Calcium 8.5, Magnesium 2.0, Iron 26 L, TIBC 424, Iron Saturation 6.53646 L, Ferritin 6.33 L, Total Bilirubin 0.8, AST 22, ALT 11 L, Alkaline Phosphatase 40, Total Protein 5.8 L, Albumin 3.6, Globulin 2.2, Albumin/Globulin Ratio 1.6 06/28/24 06:26: POC Glucose 121 H 06/28/24 11:20: POC Glucose 110 I & O for Last 24 hours: Intake & Output 06/25/24 06/26/24 06/27/24 06/28/24 23:59 23:59 23:59 23:59 Intake Total 1020 / 1020 0 / 0 Output Total 0 / 0 0 / 0 Balance 1020 / 1020 0 / 0 Weight 82.355 kg 83.325 kg Constitutional Constitutional: no acute distress, average body habitus, chronically ill appearing and cooperative *Routine HEENT Exam Head: Present normocephalic Eye: Present EOMI and PERRL ENT: Present mucous membranes moist *Routine Neck Exam Neck: Present supple; Absent lymphadenopathy *Routine Respiratory Exam Respiratory: Present CTA bilaterally; Absent rhonchi, wheezes or crackles *Routine Cardiovascular Exam Cardiovascular: Present RRR *Routine Abdominal Exam Abdominal: Present soft and normoactive bowel sounds; Absent tenderness *Routine Rectal Exam Patient deferred: visual exam *Routine Exam Patient deferred: penile exam *Routine Extremities Exam Extremities: Absent cyanosis, clubbing or edema *Routine Skin Exam Skin: Present warm; Absent rash *Routine Neurological Exam Neurological: Present alert, oriented X3 and moving all extremities; Absent altered mental status Results Data Completed and Pending Labs on day of discharge: Labs from last 24 hours 06/28/24 06/28/24 06/28/24 11:20 06:26 06:11 WBC 5.7 RBC 3.40 L Hgb 8.0 L Hct 26.2 L MCV 77.2 L MCH 23.5 L MCHC 30.5 L RDW 17.3 Plt Count 295 MPV 8.6 Neut % (Auto) 56.8 Lymph % (Auto) 27.0 [place] % (Auto) 10.9 H Eos % (Auto) 4.6 Baso % (Auto) 0.6 Neut # (Auto) 3.2 Lymph # (Auto) 1.5 [place] # (Auto) 0.6 Eos # (Auto) 0.3 Baso # (Auto) 0.0 Sodium 139 Potassium 3.6 Chloride 111 H Carbon Dioxide 24 Anion Gap 7.6 BUN 15 D Creatinine 0.80 Estimated Creat Clear 71 Estimated GFR 93 Est GFR ( Amer) 113 Glucose 96 D POC Glucose 110 121 H Hemoglobin A1c 6.1 H Calcium 8.5 Magnesium 2.0 Iron 26 L TIBC 424 Iron Saturation 6.10489 L Ferritin 6.33 L Total Bilirubin 0.8 AST 22 ALT 11 L Alkaline Phosphatase 40 Total Protein 5.8 L Albumin 3.6 Globulin 2.2 Albumin/Globulin Ratio 1.6 Blood Type Blood Type Confirm Antibody Screen Crossmatch ([facility]) 06/27/24 06/27/24 06/27/24 20:43 19:17 12:40 WBC RBC Hgb 7.7 L Hct 25.1 L MCV MCH MCHC RDW Plt Count MPV Neut % (Auto) Lymph % (Auto) [place] % (Auto) Eos % (Auto) Baso % (Auto) Neut # (Auto) Lymph # (Auto) [place] # (Auto) Eos # (Auto) Baso # (Auto) Sodium Potassium Chloride Carbon Dioxide Anion Gap BUN Creatinine Estimated Creat Clear Estimated GFR Est GFR ( Amer) Glucose POC Glucose 108 Hemoglobin A1c Calcium Magnesium Iron TIBC Iron Saturation Ferritin Total Bilirubin AST ALT Alkaline Phosphatase Total Protein Albumin Globulin Albumin/Globulin Ratio Blood Type O Positive Blood Type Confirm Antibody Screen Negative Crossmatch ([facility]) See Detail 06/27/24 07:30 WBC RBC Hgb Hct MCV MCH MCHC RDW Plt Count MPV Neut % (Auto) Lymph % (Auto) [place] % (Auto) Eos % (Auto) Baso % (Auto) Neut # (Auto) Lymph # (Auto) [place] # (Auto) Eos # (Auto) Baso # (Auto) Sodium Potassium Chloride Carbon Dioxide Anion Gap BUN Creatinine Estimated Creat Clear Estimated GFR Est GFR ( Amer) Glucose POC Glucose Hemoglobin A1c Calcium Magnesium Iron TIBC Iron Saturation Ferritin Total Bilirubin AST ALT Alkaline Phosphatase Total Protein Albumin Globulin Albumin/Globulin Ratio Blood Type Blood Type Confirm O Positive Antibody Screen Crossmatch (AHG) DS: Diagnosis Discharge Diagnosis (1) GI bleed: Status: Acute Code(s): K92.2 - Gastrointestinal hemorrhage, unspecified (2) Acute blood loss anemia: Status: Acute Code(s): D62 - Acute posthemorrhagic anemia Meds Home Medications and Allergies Home Medications ?Medication ?Instructions ?Recorded ?Confirmed ?Type dapagliflozin propanediol 10 mg 10 mg PO DAILY 04/05/23 06/27/24 History tablet (Farxiga) metformin 500 mg tablet,extended 1,000 mg PO BID 04/05/23 06/27/24 History release 24 hr rosuvastatin 10 mg tablet 10 mg PO DAILY 04/05/23 06/27/24 History clopidogrel 75 mg tablet 75 mg PO DAILY 05/18/24 06/27/24 History diltiazem HCl 360 mg capsule,24 360 mg PO DAILY 05/18/24 06/27/24 History hr,extended release linagliptin 5 mg tablet (Tradjenta) 5 mg PO DAILY 05/18/24 06/27/24 History pantoprazole 40 mg tablet,delayed 40 mg PO DAILY 05/18/24 06/27/24 History release sotalol 120 mg tablet 120 mg PO BID 05/18/24 06/27/24 History isosorbide mononitrate 30 mg 30 mg PO DAILY #30 tabs 06/07/24 06/27/24 Rx tablet,extended release 24 hr nitroglycerin 0.4 mg sublingual 0.4 mg sublingual Q5MINP PRN Chest 06/07/24 06/27/24 Rx tablet Pain #30 tabs apixaban 5 mg tablet (Eliquis) 5 mg PO BID 30 days #60 tabs 06/28/24 Rx New Prescriptions to Start Prescriptions: apixaban [Eliquis] Addy Norris Allergies Allergy/AdvReac Type Severity Reaction Status Date / Time amoxicillin Allergy Mild Hives Verified 06/27/24 09:20 Discharge Plan Disposition Patient Disposition: Home, Self-Care Condition: Fair Follow up Plan Follow up with: Jl Berumen MD [Primary Care Provider] - 07/04/24 11:45 am (with Isabel ) Simon Browning MD [Staff Physician] - 07/05/24 10:30 am Prescriptions/Medication Reconciliation: New Eliquis 5 mg Tablet 5 mg PO BID 30 Days Qty: 60 0RF Continued metformin 500 mg tablet extended release 24 hr 1,000 mg PO BID rosuvastatin 10 mg tablet 10 mg PO DAILY Farxiga 10 mg tablet 10 mg PO DAILY isosorbide mononitrate 30 mg tablet extended release 24 hr 30 mg PO DAILY Qty: 30 2RF nitroglycerin 0.4 mg tablet, sublingual 0.4 mg SUBLINGUAL Q5MINP PRN (Reason: Chest Pain) Qty: 30 2RF Tradjenta 5 mg tablet 5 mg PO DAILY diltiazem HCl 360 mg capsule,extended release 24 hr 360 mg PO DAILY clopidogrel 75 mg tablet 75 mg PO DAILY sotalol 120 mg tablet 120 mg PO BID pantoprazole 40 mg tablet,delayed release (DR/EC) 40 mg PO DAILY Discontinued Xarelto 20 mg tablet 20 mg PO QPMWITHMEAL Problem Reconciliation Problems Reviewed?: Yes Patient Discharge Instructions ACTIVITY: Continue current activity DIET: continue same diet Patient Instructions: DI for Gastrointestinal Bleeding Print Language: Romanian Providers Primary Care Provider: Jl Berumen Admit Provider: Addy Norris Attending Provider: Addy Norris
--- NOTE | 2024-06-28 12:58 | P.CONCA_ITS ---
History of Present Illness History of Present Illness Consult date: 06/28/24 Requesting physician: Addy Norris Consult reason: known to you Chief complaint: weakness, anemia Additional Medical History:: History of present illness: 79-year-old white male established patient of our office with history of CAD, PAD, paroxysmal A-fib and permanent pacemaker implant. He was seen in the office recently with worsening angina and dyspnea on exertion. Yesterday) found to have hemoglobin which has dropped to 7 from 12 just 6 weeks ago. He was referred to the hospital for admission and workup. Xarelto and Plavix were held overnight and this morning he underwent EGD which revealed no active bleeding but healing ulcer. He reports feeling better posttransfusion and is planning for discharge later today [facility] Disclaimer: The information contained in this section may have been updated after the patient was seen, as this information can be updated by other users. Medical History Abnormal angiogram Asymmetrical hearing loss Chronic dysfunction of both eustachian tubes Middle ear effusion Hearing loss Unsteady gait H/O cardiac pacemaker Dyspnea Pain in pacemaker pocket Dyspnea Cardiac pacemaker in situ Family History Other Diabetes Social History Smoking Status: Never smoker alcohol intake: never counseling provided: none substance use type: denies use current occupational status: other Travel in the last 8 weeks: Inside the [place] household members: spouse housing: house current occupational exposures/hazards: No caffeine: Yes Review of Systems Constitutional Constitutional: Denies fatigue and Denies weakness Eyes Eyes: Denies loss of vision ENT Ears, Nose, Mouth, and Throat: Denies hearing loss and Denies vertigo *Cardiovascular Cardiovascular: Denies chest pain, Denies dyspnea and Denies syncope *Respiratory Respiratory: Denies cough and Denies dyspnea *Gastrointestinal Gastrointestinal: Denies change in stool character, Denies nausea and Denies vomiting *Genitourinary Genitourinary: Denies difficulty urinating *Musculoskeletal Musculoskeletal: Denies muscle weakness Integumentary/Breasts Skin/Breast: Denies changing lesions *Neurologic Neurologic: Denies loss of vision, Denies syncope, Denies vertigo and Denies weakness Endocrine Endocrine: Denies fatigue Exam Data for Last 24 hours Vital signs and Labs for Last 24 Hours: Temp Pulse Resp BP Pulse Ox O2 Del Method O2 Flow Rate 98.6 F 60 16 105/55 L 97 Room Air 4 06/28/24 12:00 06/28/24 12:00 06/28/24 12:00 06/28/24 12:00 06/28/24 12:00 06/28/24 12:52 06/28/24 07:34 Laboratory Results - last 24 hr 06/27/24 07:30: Blood Type Confirm O Positive 06/27/24 12:40: Blood Type O Positive, Antibody Screen Negative, Crossmatch (AHG) See Detail 06/27/24 19:17: Hgb 7.7 L, Hct 25.1 L 06/27/24 20:43: POC Glucose 108 06/28/24 06:11: WBC 5.7, RBC 3.40 L, Hgb 8.0 L, Hct 26.2 L, MCV 77.2 L, MCH 23.5 L, MCHC 30.5 L, RDW 17.3, Plt Count 295, MPV 8.6, Neut % (Auto) 56.8, Lymph % (Auto) 27.0, [place] % (Auto) 10.9 H, Eos % (Auto) 4.6, Baso % (Auto) 0.6, Neut # (Auto) 3.2, Lymph # (Auto) 1.5, [place] # (Auto) 0.6, Eos # (Auto) 0.3, Baso # (Auto) 0.0, Sodium 139, Potassium 3.6, Chloride 111 H, Carbon Dioxide 24, Anion Gap 7.6, BUN 15 D, Creatinine 0.80, Estimated Creat Clear 71, Estimated GFR 93, Est GFR ( Amer) 113, Glucose 96 D, Hemoglobin A1c 6.1 H, Calcium 8.5, Magnesium 2.0, Iron 26 L, TIBC 424, Iron Saturation 6.51382 L, Ferritin 6.33 L, Total Bilirubin 0.8, AST 22, ALT 11 L, Alkaline Phosphatase 40, Total Protein 5.8 L, Albumin 3.6, Globulin 2.2, Albumin/Globulin Ratio 1.6 06/28/24 06:26: POC Glucose 121 H 06/28/24 11:20: POC Glucose 110 I & O for Last 24 hours: Intake & Output 06/25/24 06/26/24 06/27/24 06/28/24 23:59 23:59 23:59 23:59 Intake Total 1020 / 1020 0 / 0 Output Total 0 / 0 0 / 0 Balance 1020 / 1020 0 / 0 Weight 181 lb 8.987 oz 183 lb 11.2 oz Constitutional Constitutional: no acute distress and cooperative *Routine HEENT Exam Eye: Present PERRL *Routine Respiratory Exam Respiratory: Present CTA bilaterally; Absent accessory muscle use, wheezes or crackles *Routine Cardiovascular Exam Cardiovascular: Present RRR, Normal S1 and Normal S2; Absent murmur, gallop or rubs *Routine Abdominal Exam Abdominal: Present soft; Absent tenderness *Routine Extremities Exam Extremities: Present pulses intact; Absent cyanosis or edema *Routine Skin Exam Skin: Present intact; Absent erythema or wounds *Routine Neurological Exam Neurological: Present alert and oriented X3 Routine Psychiatric Exam Psychiatric: Present cooperative Meds Home Medications and Allergies Home Medications ?Medication ?Instructions ?Recorded ?Confirmed ?Type dapagliflozin propanediol 10 mg 10 mg PO DAILY 04/05/23 06/27/24 History tablet (Farxiga) metformin 500 mg tablet,extended 1,000 mg PO BID 04/05/23 06/27/24 History release 24 hr rosuvastatin 10 mg tablet 10 mg PO DAILY 04/05/23 06/27/24 History clopidogrel 75 mg tablet 75 mg PO DAILY 05/18/24 06/27/24 History diltiazem HCl 360 mg capsule,24 360 mg PO DAILY 05/18/24 06/27/24 History hr,extended release linagliptin 5 mg tablet (Tradjenta) 5 mg PO DAILY 05/18/24 06/27/24 History pantoprazole 40 mg tablet,delayed 40 mg PO DAILY 05/18/24 06/27/24 History release rivaroxaban 20 mg tablet (Xarelto) 20 mg PO QPMWITHMEAL 05/18/24 06/27/24 History sotalol 120 mg tablet 120 mg PO BID 05/18/24 06/27/24 History isosorbide mononitrate 30 mg 30 mg PO DAILY #30 tabs 06/07/24 06/27/24 Rx tablet,extended release 24 hr nitroglycerin 0.4 mg sublingual 0.4 mg sublingual Q5MINP PRN Chest 06/07/24 06/27/24 Rx tablet Pain #30 tabs New Prescriptions to Start Prescriptions: Allergies Allergy/AdvReac Type Severity Reaction Status Date / Time amoxicillin Allergy Mild Hives Verified 06/27/24 09:20 Assessment and Plan *Assessment and plan (1) GI bleed: Status: Acute Category: Medical Code(s): K92.2 - Gastrointestinal hemorrhage, unspecified (2) Acute blood loss anemia: Status: Acute Category: Medical Code(s): D62 - Acute posthemorrhagic anemia (3) Peripheral artery disease: Status: Acute Category: Medical Code(s): I73.9 - Peripheral vascular disease, unspecified (4) CAD (coronary artery disease): Status: Chronic Qualifiers: Associated angina: without angina Coronary Disease-Associated Artery/Lesion type: [place] artery [place] vs. 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 Qualified Code(s): E11.69 - Type 2 diabetes mellitus with other specified complication Category: Medical Code(s): E11.9 - Type 2 diabetes mellitus without complications (6) Hyperlipidemia: Status: Chronic Qualifiers: Hyperlipidemia type: mixed hyperlipidemia Qualified Code(s): E78.2 - Mixed hyperlipidemia Category: Medical Code(s): E78.5 - Hyperlipidemia, unspecified (7) Atrial fibrillation: Status: Chronic Qualifiers: Atrial fibrillation type: paroxysmal Qualified Code(s): I48.0 - Paroxysmal atrial fibrillation Category: Medical Code(s): I48.91 - Unspecified atrial fibrillation (8) Typical angina: Status: Acute Category: Medical Code(s): I20.9 - Angina pectoris, unspecified Plan Acute Blood Loss Anemia -Resolved per scope today -Will resume Plavix, change Xarelto to Eliquis due to statistically lower GI bleeding incidence -Double PPI at discharge for ulcer treatment -Repeat outpatient labs tomorrow and of office follow-up with us in 1 week CAD - CCS = 0 here, improving post transfusion - Cont Plavix, Sotalol, Statin PAD - no claudication - resume Plavix, Eliquis, Statin PAF/PPM - 0% A-fib on recent download - SR here - change Xarelto to Eliquis due to GI bleed - cont Sotalol and Cardizem CV stable for DC Home. Office f/u [facility] 1 week CV Med changes - Change Xarelto to Eliquis 5mg BID - Double Protonix
[2024-06-28] MEDS: APIXABAN 5MG TABLET 5 MG PO (13:09)
[2024-06-28] MEDS: CLOPIDOGREL 75MG TAB 75 MG PO (13:09)
[2024-06-28 14:32] LABS: Hematocrit 25.8 % (42.0-52.0); Hemoglobin 8.1 g/dL (14.1-18.0)
--- NOTE | 2024-06-29 14:52 | CARE MANAGER ---
Contacted patient related to hospital discharge. Patient has new prescription and is aware of both appointments. Denies questions or concerns at this time. ANGELLA Lim
== END 2024-06-28 16:14 | disposition home or self-care (01) ==
PROVIDERS: Surgery; Admitting Provider Internal Medicine Adolescent Medicine; PCP Internal Medicine Adolescent Medicine; Visit Provider Internal Medicine Adolescent Medicine
PROC: 0DJ08ZZ Inspection of Upper Intestinal Tract, Via Natural or Artificial Opening Endoscopic (ICD-10-PCS; CPT 43235; principal; 2024-06-28 07:30)
DX: D62 Acute posthemorrhagic anemia (principal); K92.2 Gastrointestinal hemorrhage, unspecified; I73.9 Peripheral vascular disease, unspecified; E78.2 Mixed hyperlipidemia; E11.9 Type 2 diabetes mellitus without complications; I48.0 Paroxysmal atrial fibrillation; Z79.84 Long term (current) use of oral hypoglycemic drugs; Z79.899 Other long term (current) drug therapy; I25.118 Atherosclerotic heart disease of native coronary artery with other forms of angina pectoris
CPT/HCPCS: 43239; G0379; 36415; 36430; 80048; 80053; 82728; 82962; 83036; 83540; 83550; 83735; 85014; 85018; 85025; 86850; G0378; P9016

== ENCOUNTER 2024-06-29 10:39 | Outpatient (CLI) | payer MEDICARE, SELFPAY ==
[2024-06-29 11:32] LABS: Basophils % 0.7 % (0.1-2.0); Eosinophils # 0.2 K/mm3 (0.0-0.4); Eosinophils % 4.5 % (0.1-12.0); Hematocrit 27.2 % (42.0-52.0); Hemoglobin 8.4 g/dL (14.1-18.0); Lymphocytes # 1.2 K/mm3 (0.7-4.5); Lymphocytes % 22.5 % (10-50); Mean Corpuscular HGB Conc 30.8 g/dL (31.8-35.4); Mean Corpuscular Hemoglobin 23.8 pg (27.0-31.2); Mean Corpuscular Volume 77.4 fl (80-94); Mean Platelet Volume 8.2 fl (7.4-10.4); Monocytes # 0.5 K/mm3 (0.1-1.0); Monocytes % 8.9 % (1.7-9.3); Neutrophils # 3.4 K/mm3 (1.8-7.8); Neutrophils % 63.4 % (37.0-80.0); Platelet Count 323 K/mm3 (142-424); Red Blood Count 3.51 M/mm3 (4.60-6.20); Red Cell Distribution Width 17.3 % (11.5-17.5); White Blood Count 5.3 K/mm3 (4.8-10.8)
== END 2024-06-29 23:59 | disposition home or self-care (01) ==
LOC: LAB 10:40
PROVIDERS: PCP Internal Medicine Adolescent Medicine; Visit Provider Internal Medicine Adolescent Medicine
DX: D62 Acute posthemorrhagic anemia (principal)
CPT/HCPCS: 36415; 85025

== ENCOUNTER 2024-07-05 15:27 | Outpatient (CLI) | payer MEDICARE, SELFPAY ==
[2024-07-05 15:59] LABS: Hematocrit 25.7 % (42.0-52.0); Hemoglobin 8.1 g/dL (14.1-18.0)
== END 2024-07-05 23:59 | disposition home or self-care (01) ==
LOC: LAB 15:28
PROVIDERS: PCP Nurse Practitioner Family; Visit Provider Nurse Practitioner Family
DX: D62 Acute posthemorrhagic anemia (principal)
CPT/HCPCS: 36415; 85014; 85018

== ENCOUNTER 2024-07-12 09:43 | Outpatient (CLI) | payer MEDICARE, SELFPAY ==
[2024-07-12 10:07] LABS: Hematocrit 28.2 % (42.0-52.0); Hemoglobin 8.4 g/dL (14.1-18.0)
== END 2024-07-12 23:59 | disposition home or self-care (01) ==
LOC: LAB 09:44
PROVIDERS: PCP Internal Medicine Adolescent Medicine; Visit Provider Surgery
DX: D62 Acute posthemorrhagic anemia (principal)
CPT/HCPCS: 36415; 85014; 85018

== ENCOUNTER 2024-07-18 07:38 | Outpatient (CLI) | payer MEDICARE, SELFPAY ==
--- NOTE | 2024-07-18 07:39 | FL_ITS ---
FINAL REPORT CLINICAL HISTORY: .anemia 3969.75 dap 2.10 fluoro time FINDINGS: UPPER GI WITH SBFT UPPER GI EXAM HISTORY: anemia. PROCEDURE: The patient ingested barium. Effervescent crystals were also administered. Spot and overhead films were obtained. FINDINGS: The esophagus is normal. There is no hiatal hernia. There is mild gastroesophageal reflux. Peristalsis is normal. The rugal fold pattern of the stomach is normal. The duodenal bulb is normal. Fluoroscopy time: 2 minutes 10 seconds. Fluoro dose: 3969.75 DAP in uGym2 IMPRESSION: Mild gastroesophageal reflux. Otherwise, unremarkableupper GI. SBFT: The system validation engineer film is normal. There is no evidence of obstruction. The mucosal fold pattern is normal. The terminal ilium is normal. IMPRESSION: Normal SBFT. Films reviewed , interpreted and dictated by Dr. Montez. Transcribed by Sadiq Berman PA-C. Reviewed, Interpreted and Dictated by Fabrice Montez MD Transcribed by RAMON Eastman Authenticated and [facility]
[2024-07-18] MEDS: E-Z-GASII EFFERVESCENT GRANULES;1PK 1 EACH PO (08:58)
[2024-07-18] MEDS: BARIUM SULFATE (E-Z-HD 340GM);135ML BOTTLE 135 ML PO (08:58)
[2024-07-18] MEDS: BARIUM SULFATE(E-Z-AC);750ML BOTTLE 750 ML PO (08:58)
== END 2024-07-18 23:59 | disposition home or self-care (01) ==
LOC: RAD 07:39
PROVIDERS: PCP Nurse Practitioner Family; Visit Provider Surgery
DX: D62 Acute posthemorrhagic anemia (principal)
CPT/HCPCS: 74246; 74248

== ENCOUNTER 2024-07-25 11:19 | Outpatient (CLI) | payer MEDICARE, SELFPAY ==
[2024-07-25 11:27] VITALS: BMI 29.8
--- NOTE | 2024-07-25 11:32 | PC.NURSE ---
1132-collected labs via venipuncture stick in left ac with butterfly needle; will call pt with results;pt d/c home
[2024-07-25 11:47] LABS: Basophils % 0.6 % (0.1-2.0); Eosinophils # 0.4 K/mm3 (0.0-0.4); Eosinophils % 6.6 % (0.1-12.0); Hemoglobin 8.8 g/dL (14.1-18.0); Lymphocytes # 1.4 K/mm3 (0.7-4.5); Lymphocytes % 23.5 % (10-50); Mean Corpuscular HGB Conc 29.2 g/dL (31.8-35.4); Mean Corpuscular Hemoglobin 21.6 pg (27.0-31.2); Mean Corpuscular Volume 73.8 fl (80-94); Mean Platelet Volume 8.5 fl (7.4-10.4); Monocytes # 0.6 K/mm3 (0.1-1.0); Monocytes % 10.4 % (1.7-9.3); Neutrophils # 3.4 K/mm3 (1.8-7.8); Neutrophils % 58.8 % (37.0-80.0); Platelet Count 319 K/mm3 (142-424); Red Blood Count 4.07 M/mm3 (4.60-6.20); Red Cell Distribution Width 17.9 % (11.5-17.5); White Blood Count 5.8 K/mm3 (4.8-10.8)
[2024-07-25 13:03] LABS: Iron 28 ug/dL (49-181)
[2024-07-25 13:13] LABS: Total Iron Binding Capacity 429 ug/dL (261-462)
[2024-07-25 13:38] LABS: Ferritin 5.14 ng/ml (17.9-464)
== END 2024-07-25 11:35 | disposition home or self-care (01) ==
LOC: LAB 11:21 → INF 11:24
PROVIDERS: PCP Nurse Practitioner Family; Visit Provider Internal Medicine Medical Oncology
DX: D50.9 Iron deficiency anemia, unspecified (principal)
CPT/HCPCS: 36415; 82728; 83540; 83550; 85025

== ENCOUNTER 2024-08-10 09:40 | Outpatient (CLI) | payer MEDICARE, SELFPAY ==
[2024-08-10 11:43] LABS: Iron 32 ug/dL (49-181)
[2024-08-10 11:54] LABS: Total Iron Binding Capacity 416 ug/dL (261-462)
[2024-08-10 12:17] LABS: Ferritin 5.38 ng/ml (17.9-464)
== END 2024-08-10 23:59 | disposition home or self-care (01) ==
LOC: LAB 09:42
PROVIDERS: PCP Internal Medicine Adolescent Medicine; Visit Provider Internal Medicine Medical Oncology
DX: D50.9 Iron deficiency anemia, unspecified (principal)
CPT/HCPCS: 36415; 82728; 83540; 83550

== ENCOUNTER 2024-08-22 10:40 | Outpatient (CLI) | payer MEDICARE, SELFPAY ==
[2024-08-22 10:56] VITALS: BP 137/58; PULSE 62; RESP 18; TEMP 36.8; O2SAT 99
[2024-08-22] MEDS: SODIUM CHLORIDE 0.9% 10ML FLUSH SYRINGE 10 ML IV (10:56)
[2024-08-22] MEDS: SODIUM CHLORIDE 0.9% 50ML BAG 50 ML IV (10:56)
[2024-08-22] MEDS: IRON SUCROSE COMPLEX 200 MG in 0.9 % SODIUM CHLORIDE 100 ML 220 MG IV (10:56)
[2024-08-22 11:35] VITALS: BP 131/63; PULSE 64; RESP 18; O2SAT 99
== END 2024-08-22 11:40 | disposition home or self-care (01) ==
LOC: INF 10:41
PROVIDERS: PCP Nurse Practitioner Family; Visit Provider Internal Medicine Medical Oncology
DX: D50.9 Iron deficiency anemia, unspecified (principal)
CPT/HCPCS: 96365; J1756

== ENCOUNTER 2024-08-29 10:34 | Outpatient (CLI) | payer MEDICARE, SELFPAY ==
[2024-08-29 11:06] VITALS: BP 144/64; PULSE 60; RESP 16; TEMP 36.9; O2SAT 100
[2024-08-29] MEDS: SODIUM CHLORIDE 0.9% 10ML FLUSH SYRINGE 10 ML IV (11:06)
[2024-08-29] MEDS: IRON SUCROSE COMPLEX 200 MG in 0.9 % SODIUM CHLORIDE 100 ML 220 MG IV (11:06)
[2024-08-29] MEDS: SODIUM CHLORIDE 0.9% 50ML BAG 50 ML IV (11:07)
[2024-08-29 11:45] VITALS: BP 132/64; PULSE 58; RESP 16; TEMP 36.9; O2SAT 97
== END 2024-08-29 11:50 | disposition home or self-care (01) ==
LOC: INF 10:36
PROVIDERS: PCP Nurse Practitioner Family; Visit Provider Internal Medicine Medical Oncology
DX: D50.9 Iron deficiency anemia, unspecified (principal)
CPT/HCPCS: 96365; J1756

== ENCOUNTER 2024-09-05 10:28 | Outpatient (CLI) | payer MEDICARE, SELFPAY ==
[2024-09-05 10:49] VITALS: BP 143/60; PULSE 63; RESP 16; TEMP 37.2; O2SAT 100; BMI 29.9
[2024-09-05] MEDS: SODIUM CHLORIDE 0.9% 50ML BAG 50 ML IV (10:50)
[2024-09-05] MEDS: IRON SUCROSE COMPLEX 200 MG in 0.9 % SODIUM CHLORIDE 100 ML 220 MG IV (10:50)
[2024-09-05] MEDS: SODIUM CHLORIDE 0.9% 10ML FLUSH SYRINGE 10 ML IV (10:53)
[2024-09-05 11:40] VITALS: BP 115/51; PULSE 60; RESP 16; O2SAT 99
== END 2024-09-05 11:42 | disposition home or self-care (01) ==
LOC: INF 10:29
PROVIDERS: PCP Nurse Practitioner Family; Visit Provider Internal Medicine Medical Oncology
DX: D50.9 Iron deficiency anemia, unspecified (principal)
CPT/HCPCS: 96365; J1756

== ENCOUNTER 2024-09-12 09:53 | Outpatient (CLI) | payer MEDICARE, SELFPAY ==
[2024-09-12 10:05] VITALS: BP 158/67; PULSE 60; RESP 18; TEMP 36.8; O2SAT 99; BMI 29.8
[2024-09-12] MEDS: SODIUM CHLORIDE 0.9% 50ML BAG 50 ML IV (10:05)
[2024-09-12] MEDS: SODIUM CHLORIDE 0.9% 10ML FLUSH SYRINGE 10 ML IV (10:05)
[2024-09-12] MEDS: IRON SUCROSE COMPLEX 200 MG in 0.9 % SODIUM CHLORIDE 100 ML 220 MG IV (10:06)
[2024-09-12 10:53] VITALS: BP 130/61; PULSE 62; RESP 18; O2SAT 96
== END 2024-09-12 10:54 | disposition home or self-care (01) ==
LOC: INF 09:53
PROVIDERS: PCP Nurse Practitioner Family; Visit Provider Internal Medicine Medical Oncology
DX: D50.9 Iron deficiency anemia, unspecified (principal)
CPT/HCPCS: 96365; J1756

== ENCOUNTER 2024-09-19 10:41 | Outpatient (CLI) | payer MEDICARE, SELFPAY ==
[2024-09-19] MEDS: SODIUM CHLORIDE 0.9% 10ML FLUSH SYRINGE 10 ML IV (10:56)
[2024-09-19 10:57] VITALS: BP 133/58; PULSE 60; RESP 16; TEMP 36.6; O2SAT 98
[2024-09-19] MEDS: SODIUM CHLORIDE 0.9% 50ML BAG 50 ML IV (10:57)
[2024-09-19] MEDS: IRON SUCROSE COMPLEX 200 MG in 0.9 % SODIUM CHLORIDE 100 ML 220 MG IV (10:57)
[2024-09-19 11:35] VITALS: BP 130/62; PULSE 64; RESP 16; TEMP 36.6; O2SAT 97
== END 2024-09-19 11:35 | disposition home or self-care (01) ==
PROVIDERS: PCP Nurse Practitioner Family; Visit Provider Internal Medicine Medical Oncology
DX: D64.9 Anemia, unspecified (principal)
CPT/HCPCS: 96365; J1756

== ENCOUNTER 2024-10-17 09:58 | Outpatient (CLI) | payer MEDICARE, SELFPAY ==
[2024-10-17 10:12] VITALS: BMI 31.6
--- NOTE | 2024-10-17 10:13 | PC.NURSE ---
venipuncture draw with 23 g butterfly needle to RAC. labs drawn, orders in computer. labs taken to lab. 2x2 and coban applied. bleeding controlled. pt tolerated well.
[2024-10-17 10:22] LABS: Basophils % 0.7 % (0.1-2.0); Eosinophils # 0.3 K/mm3 (0.0-0.4); Eosinophils % 5.7 % (0.1-12.0); Hemoglobin 13.7 g/dL (14.1-18.0); Lymphocytes # 1.4 K/mm3 (0.7-4.5); Lymphocytes % 24.8 % (10-50); Mean Corpuscular HGB Conc 31.8 g/dL (31.8-35.4); Mean Corpuscular Hemoglobin 24.3 pg (27.0-31.2); Mean Corpuscular Volume 76.4 fl (80-94); Mean Platelet Volume 8.2 fl (7.4-10.4); Monocytes # 0.5 K/mm3 (0.1-1.0); Monocytes % 9.4 % (1.7-9.3); Neutrophils # 3.4 K/mm3 (1.8-7.8); Neutrophils % 59.5 % (37.0-80.0); Platelet Count 193 K/mm3 (142-424); Red Blood Count 5.62 M/mm3 (4.60-6.20); Red Cell Distribution Width 25.1 % (11.5-17.5); White Blood Count 5.6 K/mm3 (4.8-10.8)
[2024-10-17 11:06] LABS: Iron 71 ug/dL (49-181)
[2024-10-17 11:15] LABS: Total Iron Binding Capacity 416 ug/dL (261-462)
[2024-10-17 11:44] LABS: Ferritin 26.5 ng/ml (17.9-464)
== END 2024-10-17 10:15 | disposition home or self-care (01) ==
LOC: INF 10:00
PROVIDERS: PCP Nurse Practitioner Family; Visit Provider Internal Medicine Medical Oncology
DX: D50.9 Iron deficiency anemia, unspecified (principal); D64.9 Anemia, unspecified
CPT/HCPCS: 36415; 82728; 83540; 83550; 85025

== ENCOUNTER 2024-11-14 10:11 | Outpatient (CLI) | payer MEDICARE, SELFPAY ==
[2024-11-14 11:15] LABS: Hematocrit 43.4 % (42.0-52.0); Hemoglobin 14.1 g/dL (14.1-18.0); Hemoglobin A1C 6.5 % (4.0-6.0); Mean Corpuscular HGB Conc 32.5 g/dL (31.8-35.4); Platelet Count 222 K/mm3 (142-424); Red Blood Count 5.64 M/mm3 (4.60-6.20); White Blood Count 5.7 K/mm3 (4.8-10.8)
[2024-11-14 11:16] LABS: Basophils % 0.7 % (0.1-2.0); Eosinophils # 0.3 K/mm3 (0.0-0.4); Eosinophils % 5.3 % (0.1-12.0); Lymphocytes # 1.5 K/mm3 (0.7-4.5); Lymphocytes % 25.6 % (10-50); Mean Platelet Volume 10.1 fl (7.4-10.4); Monocytes # 0.6 K/mm3 (0.1-1.0); Monocytes % 10.4 % (1.7-9.3); Neutrophils # 3.3 K/mm3 (1.8-7.8); Neutrophils % 57.8 % (37.0-80.0)
[2024-11-14 11:48] LABS: Anion Gap 11.8 mEq/L (5-15); Blood Urea Nitrogen 22 mg/dl (9-20); Carbon Dioxide 29 mmol/L (22.0-30.0); Chloride 104 mmol/L (98-107); Estimated Glomerular Filt Rate 81 ml/min (>60); GFR (African American) 98 ML/MIN (>60); Glucose 160 mg/dl (74-100); Potassium 3.8 mmoL/L (3.5-5.1); Sodium 141 mmol/L (136-145)
[2024-11-14 13:12] LABS: Iron 81 ug/dL (49-181)
[2024-11-14 13:22] LABS: Total Iron Binding Capacity 424 ug/dL (261-462)
[2024-11-14 13:48] LABS: Ferritin 13.1 ng/ml (17.9-464)
== END 2024-11-14 23:59 | disposition home or self-care (01) ==
LOC: LAB 10:14
PROVIDERS: PCP Nurse Practitioner Family; Visit Provider Nurse Practitioner Family
DX: R06.2 Wheezing (principal); Z79.899 Other long term (current) drug therapy; D62 Acute posthemorrhagic anemia
CPT/HCPCS: 36415; 80048; 82728; 83036; 83540; 83550; 85025

== ENCOUNTER 2024-11-30 07:47 | Day surgery (SDC) | payer MEDICARE, SELFPAY ==
[2024-11-29 12:12] VITALS: BMI 32.1
[2024-11-30 08:04] VITALS: BP 126/61; PULSE 60; RESP 18; TEMP 36.6; O2SAT 99
[2024-11-30] MEDS: LACTATED RINGERS 1000ML 1,000 ML 25 ML IV (08:11)
[2024-11-30 08:18] LABS: POC Glucose,Bedside 126 (70-110)
--- NOTE | 2024-11-30 08:18 | EXP.ANES.CKL ---
[facility] Disclaimer: The information contained in this section may have been updated after the patient was seen, as this information can be updated by other users. Medical History Iron deficiency anemia Anemia Abnormal angiogram Asymmetrical hearing loss Chronic dysfunction of both eustachian tubes Middle ear effusion Hearing loss decreased hearing Unsteady gait H/O cardiac pacemaker Dyspnea Pain in pacemaker pocket Dyspnea Cardiac pacemaker in situ Surgical History History of esophagogastroduodenoscopy (EGD) History of colonoscopy Family History Other Diabetes Social History (Updated 11/29/24 @ 12:09 by Albina Valle RN) Smoking Status: Never smoker alcohol intake: never counseling provided: none substance use type: denies use current occupational status: other Travel in the last 8 weeks: None household members: spouse housing: house current occupational exposures/hazards: No caffeine: Yes Have you lived/traveled outside [place] in past 30 days?: No Contact w/someone who lives/traveled outside US past 30 days?: No Exposure to someone with infectious disease in past 14 days?: No Do you have a fever (greater than 100.4 F or 38 C)?: No Have you tested positive for COVID-19: No Exposed to someone with COVID-19 in past 14 days?: No Do you have a sore throat?: No Do you have a cough?: No Do you have any weakness?: No Do you have any diarrhea?: No Are you experiencing any unusual bleeding?: No Do you have any muscle aches/pain?: No Do you have any abdominal pain?: No Are you experiencing loss of taste or smell?: No [facility] Anesthesia Checklist Patient Identification Patient Identification: Arm Band, Family and Verbal (Name & ) Structural Data Admitted From: Home Planned Operative Procedure/s: EGD/Colonoscopy Consent for Planned Operative Procedure(s) Verified: Yes Verified Documents: Surgical Consent and History and Physical NPO Status Verified Time NPO: 04:00 Chart Verification Results Verified: CBC, BMP, ECG and Chest Xray Additional verifications Fingerstick Blood Glucose: 126 Patient : No Anesthesia Reactions: No Cardiovascular Assessment Pulse Rhythm: Irregular Peripheral Edema: No Airway Assessment Mallampati Score:: Class II C-Spine Mobility Assessed: Yes (FROM) TMJ Mobility Assessed: Yes Dentition: Edentulous Neurological Assessment Level of Consciousness: Awake, Alert, Appropriate and Follows Commands Hx Seizures: No Numbness or tingling in extremities: No Anesthesia Plan Anesthesia Risk discussed: Yes Anesthesia Plan: Verified ASA Class: III Anesthesia Type: MAC
[2024-11-30 08:49] VITALS: O2SAT 100
--- NOTE | 2024-11-30 08:59 | P.HP_ITS ---
History of Present Illness *Admission Date: 11/30/24 *Reason for visit:: Iron deficiency anemia *History of present illness: Mr. Chaudhari is a 79-year-old gentleman who is here for diagnostic panendoscopy secondary to iron deficiency anemia. The patient did have EGD in June 2024 (Simon Browning M.D.) and had a shallow antral ulcer and gastritis. He had subsequent PillCam. His last colonoscopy was several years ago. The examination is deemed medically necessary for EGD and colonoscopy. The patient has been seen, interviewed and examined prior to the procedure by both myself and the anesthesia provider. [facility] Disclaimer: The information contained in this section may have been updated after the patient was seen, as this information can be updated by other users. Medical History Iron deficiency anemia Anemia Abnormal angiogram Asymmetrical hearing loss Chronic dysfunction of both eustachian tubes Middle ear effusion Hearing loss decreased hearing Unsteady gait H/O cardiac pacemaker Dyspnea Pain in pacemaker pocket Dyspnea Cardiac pacemaker in situ Surgical History History of esophagogastroduodenoscopy (EGD) History of colonoscopy Family History Other Diabetes Social History (Updated 11/29/24 @ 12:09 by Albina Valle RN) Smoking Status: Never smoker alcohol intake: never counseling provided: none substance use type: denies use current occupational status: other Travel in the last 8 weeks: None household members: spouse housing: house current occupational exposures/hazards: No caffeine: Yes Have you lived/traveled outside US in past 30 days?: No Contact w/someone who lives/traveled outside US past 30 days?: No Exposure to someone with infectious disease in past 14 days?: No Do you have a fever (greater than 100.4 F or 38 C)?: No Have you tested positive for COVID-19: No Exposed to someone with COVID-19 in past 14 days?: No Do you have a sore throat?: No Do you have a cough?: No Do you have any weakness?: No Do you have any diarrhea?: No Are you experiencing any unusual bleeding?: No Do you have any muscle aches/pain?: No Do you have any abdominal pain?: No Are you experiencing loss of taste or smell?: No Other Medical History Have you received the Flu Vaccine for this season: No Have you received the Pneumonia Vaccine: Yes Review of Systems Review of Systems Review of systems (narrative): Negative *Cardiovascular Comments: Negative *Gastrointestinal Comments: Negative *Genitourinary Comments: Negative *Musculoskeletal Comments: Negative *Neurologic Comments: Negative Meds Home Medications and Allergies Home Medications ?Medication ?Instructions ?Recorded ?Confirmed ?Type dapagliflozin propanediol 10 mg 10 mg PO DAILY 04/05/23 11/30/24 History tablet (Farxiga) metformin 500 mg tablet,extended 1,000 mg PO BID 04/05/23 11/30/24 History release 24 hr rosuvastatin 10 mg tablet 10 mg PO DAILY 04/05/23 11/30/24 History linagliptin 5 mg tablet (Tradjenta) 5 mg PO DAILY 05/18/24 11/30/24 History pantoprazole 40 mg tablet,delayed 40 mg PO DAILY 05/18/24 11/30/24 History release sotalol 120 mg tablet 120 mg PO BID 05/18/24 11/30/24 History nitroglycerin 0.4 mg sublingual 0.4 mg sublingual Q5MINP PRN Chest 06/07/24 11/30/24 Rx tablet Pain #30 tabs furosemide 20 mg tablet 20 mg PO DAILY 07/17/24 11/30/24 History isosorbide mononitrate 30 mg 30 mg PO DAILY #30 tabs 08/15/24 11/30/24 Rx tablet,extended release 24 hr diltiazem HCl 360 mg capsule,24 360 mg PO DAILY #90 caps 10/09/24 11/30/24 Rx hr,extended release clopidogrel 75 mg tablet (Plavix) 75 mg PO DAILY 11/29/24 11/30/24 History New Prescriptions to Start Prescriptions: Allergies Allergy/AdvReac Type Severity Reaction Status Date / Time amoxicillin Allergy Mild Hives Verified 11/30/24 08:02 jardiance AdvReac Unknown Other Uncoded 10/24/24 11:25 ozempic AdvReac Unknown Other Uncoded 10/24/24 11:25 Exam Data for Last 24 hours Vital signs and Labs for Last 24 Hours: Temp Pulse Resp BP Pulse Ox O2 Del Method O2 Flow Rate 97.8 F 60 18 126/61 99 Nasal Cannula 5 11/30/24 08:04 11/30/24 08:04 11/30/24 08:04 11/30/24 08:04 11/30/24 08:04 11/30/24 08:49 11/30/24 08:49 Laboratory Results - last 24 hr 11/30/24 08:08: POC Glucose 126 H I & O for Last 24 hours: Intake & Output 11/27/24 11/28/24 11/29/24 11/30/24 23:59 23:59 23:59 23:59 Weight 187 lb *Routine HEENT Exam Head: Present normocephalic Eye: Present EOMI and PERRL ENT: Present mucous membranes moist *Routine Neck Exam Neck: Present supple *Routine Respiratory Exam Respiratory: Present CTA bilaterally *Routine Cardiovascular Exam Cardiovascular: Present RRR *Routine Abdominal Exam Abdominal: Present soft and normoactive bowel sounds; Absent tenderness *Routine Rectal Exam Rectal:: deferred *Routine Genitalia Exam Genitalia:: deferred *Routine Extremities Exam Extremities: Absent cyanosis, clubbing or edema *Routine Skin Exam Skin: Present warm; Absent rash *Routine Neurological Exam Neurological: Present alert and oriented X3 Assessment and Plan *Assessment and plan (1) Iron deficiency anemia: Status: Acute Qualifiers: Iron deficiency anemia type: chronic blood loss Qualified Code(s): D50.0 - Iron deficiency anemia secondary to blood loss (chronic) Category: Medical Code(s): D50.9 - Iron deficiency anemia, unspecified (2) Chronic GI bleeding: Status: Acute Category: Medical Code(s): K92.2 - Gastrointestinal hemorrhage, unspecified Plan A/P: 1. Iron deficiency anemia with Chronic GI blood loss is the preprocedural diagnosis. The patient will be anesthetized/sedated using MAC sedation. The patient has been seen and examined. Cardiac and lung assessment prior to the examination is stable. Proceed with planned diagnostic panendoscopy.
--- NOTE | 2024-11-30 09:01 | HMH.PROCNOTE ---
[facility] Procedure Note Date: 11/30/24 Time: 09:06 Procedure Note:: Upper Endoscopy Procedure Report: Esophagogastroduodenoscopy with cold biopsies Endoscopost: Catracho Ellison II, MD Referring Physician: Geronimo Joshua MD/MIMA Alcaraz Date of Procedure: November 30, 2024 Equipment: Olympus GIF 190 standard upper endoscope Sedation: MAC sedation Indications: Mr. Chaudhari is a 79-year-old gentleman who is here for diagnostic panendoscopy secondary to iron deficiency anemia. His most recent hemoglobin and hematocrit in October 2024 was 14.1 and 43.4. In July, his hemoglobin hematocrit were 8.8 and 30.0. Iron studies have shown iron deficiency previously with serum iron 32, iron saturation 7.7% and ferritin 5.38 in July 2024. After parenteral iron, his iron was 81, ferritin 13.1 and iron saturation of 19% on 11/02/2024. He has not had Hemoccult testing. The patient did have an EGD on 06/27/2024 (Simon Browning M.D.). He had a shallow antral ulcer and some gastritis. Biopsies were negative for H. pylori. He did have a colonoscopy with vt in June 2020 and had 4 polyps (tubular adenomas x 3/hyperplastic polyp x 1) removed. 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 He is on Plavix and Eliquis. He is followed by hematology. After his EGD, he had a PillCam in June or July 2024 that was normal. Panendoscopy was performed for further evaluation. Procedure: Prior to the procedure, a history and physical exam was performed, and patient's medications and allergies were reviewed. The risks, benefits and alternatives of the sedation and procedure were discussed with the patient. All questions were answered and informed consent was obtained. The patient was brought to the procedure room. Patient identification and proposed procedure were verified by the physician and the nurse. The patient was placed in a left lateral decubitus position and the scope was passed under direct vision. Throughout the procedure, the patient's blood pressure, pulse, and oxygen saturations were monitored continuously. The upper GI endoscopy was accomplished without difficulty. The patient tolerated the procedure well. Findings: The scope was passed directly into the upper esophagus and advanced to the third and fourth portion of the duodenum. The post bulbar duodenum and duodenal bulb were normal with normal mucosa and conniventes. There were no angiodysplasias or ulcerations within the duodenum. The scope was withdrawn through a normal duodenal bulb and pylorus into the stomach. There was some linear reactive gastropathy of the antrum with shallow erosion but no ulceration in the antrum. There was chronic gastritis with reticular mosaic pattern in the body and fundus suggestive of H. pylori. Biopsies were taken along the lesser curvature. Upon retroflexion there was no hiatal hernia or Mt's erosions. The scope was then withdrawn into the esophagus. There was no evidence of reflux esophagitis. The remainder of the esophageal mucosa was normal. Impression: 1. Very shallow antral erosion with reactive gastropathy of antrum and chronic gastritis of proximal stomach (body and fundus) Plan: I will check biopsies to rule out H. pylori. I will proceed with diagnostic colonoscopy. I do feel that his iron deficiency is directly related to anticoagulation (Plavix and Eliquis). I would like to determine whether Watchman procedure would allow him to come off of anticoagulation. I would consider parenteral iron today.
--- NOTE | 2024-11-30 09:26 | P.PCN_ITS ---
[facility] Procedure Note Date: 11/30/24 Time: 09:26 Procedure Note:: Colonoscopy Procedure Report: Colonoscopy with cold snare polypectomy Endoscopist: Catracho Ellison II, MD Referring physician: Geronimo Joshua MD/Daniella Sánchez MD Date of Procedure: November 30, 2024 Equipment: Olympus 190 variable stiffness pediatric colonoscope Sedation: MAC sedation Indication: Mr. Chaudhari is a 79-year-old gentleman who is here for diagnostic panendoscopy secondary to iron deficiency anemia. His most recent hemoglobin and hematocrit in October 2024 was 14.1 and 43.4. In July, his hemoglobin hematocrit were 8.8 and 30.0. Iron studies have shown iron deficiency previously with serum iron 32, iron saturation 7.7% and ferritin 5.38 in July 2024. After parenteral iron, his iron was 81, ferritin 13.1 and iron saturation of 19% on 11/02/2024. He has not had Hemoccult testing. The patient did have an EGD on 06/27/2024 (Simon Browning M.D.). He had a shallow antral ulcer and some gastritis. Biopsies were negative for H. pylori. He did have a colonoscopy with me in June 2020 and had 4 polyps (tubular adenomas x 3/hyperplastic polyp x 1) removed. 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 He is on Plavix and Eliquis. He is followed by hematology. After his EGD, he had a PillCam in June or July 2024 that was normal. Panendoscopy was performed for further evaluation. Procedure: Prior to the procedure, a history and physical exam was performed, and patient's medications and allergies were reviewed. The risks, benefits and alternatives of the sedation and procedure were discussed with the patient. All questions were answered and informed consent was obtained. The patient was brought to the procedure room. Patient identification and proposed procedure were verified by the physician and the nurse. The patient was placed in a left lateral decubitus position and the scope was passed under direct vision. Throughout the procedure, the patient's blood pressure, pulse, and oxygen saturations were mo nitored continuously. The colonoscopy was accomplished without difficulty. The patient tolerated the procedure well. Findings: On digital rectal examination there was normal rectal tone. There were no external hemorrhoids. The colonoscope was introduced through the anal canal to the rectum and advanced to the cecum. The ileocecal valve and appendiceal orifice were identified. The scope was advanced a short distance into the ileum which appeared grossly normal. The scope was then withdrawn into the colon. There were 2 polyps in the ascending colon (4 and 6 mm) that were removed via cold snare polypectomy. The remaining cecum, ascending, transverse, descending, sigmoid and rectum were grossly normal. There were no mucosal abnormalities identified. Upon retroflexion within the rectum there were grade 2 internal hemorrhoids.The preparation was excellent throughout with Nixa Preparation Score of 9. The cecal time was 12 minutes. Impression: 1. Diminutive colonic polyps x 2 2. Grade 2 internal hemorrhoids Plan: There is no etiology for the patient's iron deficiency anemia. I do feel that this may be related to poor absorption but also erosive gastritis and use of anticoagulation (Plavix and Eliquis). I would consider discussion with cardiology in regard to whether Watchman procedure is appropriate to allow him to come off of anticoagulation for his atrial fibrillation. I will administer parenteral iron today if patient has not received this recently.
[2024-11-30 09:29] VITALS: BP 99/50; PULSE 60; RESP 16; TEMP 36.4; O2SAT 96
[2024-11-30 09:39] VITALS: BP 99/57; PULSE 60; RESP 16; O2SAT 94
--- NOTE | 2024-11-30 09:47 | SUR.PHASEII ---
Pt's told this RN that pt has been taking OTC iron supplements since his hospital admission in June. Pt's also told this RN that he has had multiple iron infusions as well between June and now. Last ferritin level was drawn on 11/14/25 and was 13.1.
[2024-11-30 09:49] VITALS: BP 98/55; PULSE 60; RESP 16; O2SAT 95
[2024-11-30 09:59] VITALS: BP 106/52; PULSE 60; RESP 16; O2SAT 98
== END 2024-11-30 10:03 | disposition home or self-care (01) ==
PROVIDERS: PCP Nurse Practitioner Family; Visit Provider Internal Medicine Gastroenterology
PROC: 0DJ08ZZ Inspection of Upper Intestinal Tract, Via Natural or Artificial Opening Endoscopic (ICD-10-PCS; CPT 45378; principal; 2024-11-30 09:30)
DX: D50.0 Iron deficiency anemia secondary to blood loss (chronic) (principal); K92.2 Gastrointestinal hemorrhage, unspecified; K31.9 Disease of stomach and duodenum, unspecified; Z86.0100 Personal history of colon polyps, unspecified; K63.5 Polyp of colon; K64.1 Second degree hemorrhoids
CPT/HCPCS: 43239; 45385; 82962; J7120

== ENCOUNTER 2024-12-04 10:11 | Outpatient (CLI) | payer MEDICARE, SELFPAY ==
[2024-12-04] MEDS: SODIUM CHLORIDE 0.9% 50ML BAG 50 ML IV (10:27)
[2024-12-04] MEDS: IRON SUCROSE COMPLEX 200 MG in 0.9 % SODIUM CHLORIDE 100 ML 220 MG IV (10:27)
[2024-12-04] MEDS: SODIUM CHLORIDE 0.9% 10ML FLUSH SYRINGE 10 ML IV (10:27)
[2024-12-04 10:30] VITALS: BP 129/73; PULSE 81; RESP 18; TEMP 36.8; O2SAT 98
[2024-12-04 11:00] VITALS: BP 131/70; PULSE 79
== END 2024-12-04 11:10 | disposition home or self-care (01) ==
LOC: INF 10:13
PROVIDERS: PCP Nurse Practitioner Family; Visit Provider Internal Medicine Gastroenterology
DX: D50.9 Iron deficiency anemia, unspecified (principal)
CPT/HCPCS: 96365; J1756

== ENCOUNTER 2025-02-20 09:22 | Outpatient (CLI) | payer MEDICARE, SELFPAY ==
[2025-02-20 09:37] LABS: Basophils % 0.5 % (0.1-2.0); Eosinophils # 0.6 K/mm3 (0.0-0.4); Eosinophils % 7.9 % (0.1-12.0); Hematocrit 44.4 % (42.0-52.0); Hemoglobin 14.9 g/dL (14.1-18.0); Lymphocytes # 1.5 K/mm3 (0.7-4.5); Lymphocytes % 20.2 % (10-50); Mean Corpuscular HGB Conc 33.6 g/dL (31.8-35.4); Mean Corpuscular Hemoglobin 29.1 pg (27.0-31.2); Mean Corpuscular Volume 86.7 fl (80-94); Monocytes # 0.8 K/mm3 (0.1-1.0); Monocytes % 10.3 % (1.7-9.3); Neutrophils # 4.5 K/mm3 (1.8-7.8); Neutrophils % 60.7 % (37.0-80.0); Platelet Count 258 K/mm3 (142-424); Red Blood Count 5.12 M/mm3 (4.60-6.20); Red Cell Distribution Width 14.7 % (11.5-17.5); White Blood Count 7.5 K/mm3 (4.8-10.8)
[2025-02-20 09:50] LABS: Creatinine,Urine Random 47 mg/dL (Not Estab.)
[2025-02-20 09:54] LABS: Microalbumin/Creatinine Ratio 71.4
[2025-02-20 10:21] LABS: Chloride 106 mmol/L (98-107); Potassium 4.1 mmoL/L (3.5-5.1); Sodium 142 mmol/L (136-145)
[2025-02-20 10:23] LABS: Iron 53 ug/dL (49-181)
[2025-02-20 10:24] LABS: Alanine Aminotransferase 16 U/L (12-78); Alkaline Phosphatase 91 U/L (38-126); Anion Gap 10.1 mEq/L (5-15); Aspartate Amino Transferase 21 U/L (17-59); Bilirubin,Total 0.5 mg/dl (0.2-1.3); Blood Urea Nitrogen 24 mg/dl (9-20); Calcium 9.8 mg/dl (8.4-10.2); Carbon Dioxide 30 mmol/L (22.0-30.0); Estimated Glomerular Filt Rate 93 ml/min (>60); GFR (African American) 113 ML/MIN (>60); Glucose 158 mg/dl (74-100); Total Protein,Serum 6.6 g/dl (6.3-8.2)
[2025-02-20 10:33] LABS: Total Iron Binding Capacity 421 ug/dL (261-462)
[2025-02-20 10:34] LABS: Albumin Level 4.4 g/dl (3.5-5.0); Globulin 2.2 g/dL (1.3-3.2)
[2025-02-20 10:58] LABS: Ferritin 13.2 ng/ml (17.9-464)
== END 2025-02-20 23:59 | disposition home or self-care (01) ==
LOC: LAB 09:23
PROVIDERS: PCP Nurse Practitioner Family; Visit Provider Internal Medicine Medical Oncology
DX: D50.8 Other iron deficiency anemias (principal); E11.21 Type 2 diabetes mellitus with diabetic nephropathy
CPT/HCPCS: 36415; 80053; 82043; 82570; 82728; 83036; 83540; 83550; 85025

== ENCOUNTER 2025-04-23 09:12 | Outpatient (CLI) | payer MEDICARE, SELFPAY ==
[2025-04-23 10:50] LABS: Basophils % 0.3 % (0.1-2.0); Eosinophils # 0.2 Kmm3 (0.0-0.4); Eosinophils % 2.1 % (0.1-12.0); Hematocrit 45.1 % (42.0-52.0); Hemoglobin 14.5 g/dL (14.1-18.0); Immature Granulocytes # 0.04 10^3uL; Immature Granulocytes % 0.4 %; Lymphocytes # 1.8 K/mm3 (0.7-4.5); Lymphocytes % 19.1 % (10-50); Mean Corpuscular HGB Conc 32.2 g/dL (31.8-35.4); Mean Corpuscular Hemoglobin 27.6 pg (27.0-31.2); Mean Corpuscular Volume 85.7 fl (80-94); Mean Platelet Volume 11.3 fl (7.4-10.4); Monocytes % 10.7 % (1.7-9.3); Neutrophils # 6.3 K/mm3 (1.8-7.8); Neutrophils % 67.4 % (37.0-80.0); Nucleated Red Blood Cells # 0 10^3/uL; Nucleated Red Blood Cells % 0 %; Platelet Count 240 K/mm3 (142-424); Red Blood Count 5.26 M/mm3 (4.60-6.20); Red Cell Distribution Width 14.1 % (11.5-17.5); Red Cell Distribution Width-SD 43.9 fL; White Blood Count 9.3 K/mm3 (4.8-10.8)
[2025-04-23 11:15] LABS: Iron 84 ug/dL (49-181)
[2025-04-23 11:24] LABS: Total Iron Binding Capacity 402 ug/dL (261-462)
[2025-04-23 11:49] LABS: Ferritin 15.8 ng/ml (17.9-464)
== END 2025-04-23 23:59 | disposition home or self-care (01) ==
LOC: LAB 09:13
PROVIDERS: PCP Nurse Practitioner Family; Visit Provider Internal Medicine Medical Oncology
DX: D50.0 Iron deficiency anemia secondary to blood loss (chronic) (principal)
CPT/HCPCS: 36415; 82728; 83540; 83550; 85025

== ENCOUNTER 2025-07-10 08:35 | Outpatient (CLI) | payer MEDICARE, SELFPAY ==
--- OUTSIDE RECORDS SUMMARY | 2025-05-17 06:45 | XMS_ITS ---
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 Name Role Phone Jl Berumen Primary Care Provider Daniella Sánchez [phone] Allergies Allergen (clinical drug ingredient) Drug/Non Drug Allergy documented on EMR Reaction Allergy Type Onset Date Status amoxicillin Amoxicillin hives Drug Allergy Act beth pregabalin Lyrica vertigo Drug Allergy Active REASON FOR VISIT Follow Up, Having pain in legs/knee Medications Medication SIG (Take, Route, Frequency, Duration) Notes Start Date End Date Status Pantoprazole Sodium 40 MG 1 tab(s) orally once a day; Duration: 30 days Active Nitroglycerin 0.4 MG 1 tab(s) sublingually every 5 minutes prn; Duration: 30 days Active Tradjenta 5 MG 1 tab(s) orally once a day; Duration: 90 days Active Clopidogrel Bisulfate 75 MG 1 tab(s) orally once a day; Duration: 30 day(s) Active Sotalol HCl (AF) 120 MG 1 tab(s) orally 2 times a day Active dilTIAZem HCl ER 360 MG/24 HOURS 1 CAP(S) ORALLY ONCE A DAY *Please review and pick correct strength-formulati on from Medispan options. If intended option is not shown, discontinue and re-order from Quick Search* Active ACCU-CHEK RIO PLUS MONITORING KIT USE TO CHECK BLOOD SUGAR ONCE DAILY E11.9 *Please review for potential replacement for e-prescription and drug interaction check* 07/11/2018 Active Isosorbide Mononitrate ER 30 MG 1 tab(s) orally once a day (in the morning) Active ACCU-CHEK RIO PLUS TEST STRIPS FOR DIABETIC TESTING ONCE A DAY; Duration: 90 DAYS E11.9 *Please review for potential replacement for e-prescription and drug interaction check* 07/11/2018 Active ACCU CHECK SOFT CLICK LANCETS DIRECTED ONCE A DAY; Duration: 90 DAYS E11.9 *Please review for potential replacement for e-prescription and drug interaction check* 07/11/2018 Active Mupirocin 2 % 1 application Externally Twice a day; Duration: 5 days 05/17/2025 Active Aspirin Low Dose 81 MG 1 tab(s) orally once a day Active metFORMIN HCl ER 500 MG TAKE 2 TABLETS BY MOUTH TWICE DAILY; Duration: 90 Active Furosemide 20 MG 1 tab(s) orally once a day; Duration: 90 days 08/15/2024 Active Farxiga 10 MG TAKE 1 TABLET BY MOUTH ONCE A DAY FOR 90 DAYS; Duration: 90 days Active Doxazosin Mesylate 4 MG 1/2 tab(s) orally at bedtime; Duration: 90 days Active Rosuvastatin Calcium 10 MG 1 tab(s) orally once a day; Duration: 90 days Active Vital Signs Temperature 97.9 degrees Fahrenheit 05/17/20 25 Blood pressure systolic 130 mm Hg 05/17/20 25 Blood pressure diastolic 68 mm Hg 025 Heart Rate 68 /min 05/17/2025 Height 5 ft 9 in in 05/17/2025 Weight 187.8 lbs 05/17/2025 BMI 27.73 kg/m2 05/17/2025 Encounters Encounter Location Date Provider Diagnosis [facility] [place] [address] [facility] [address] [place] [address] 05/17/2025 Daniella Sánchez Strain of quadriceps , unspecified laterality, initial encounter S76.119A ; Pain, joint, knee, right M25.561 and Abrasion of lower extremity, unspecified laterality, initial encounter S80.819A Assessments Encounter Date Diagnosis (ICD Code) Assessment Notes Treatment Notes Treatment Clinical Notes Section Notes 05/17/2025 Strain of quadriceps, unspecified laterality, initial encounter (ICD-10 - S76.119A) suspect strain r/t fall, encouraged better fluid intake, rest/stretching and heat as needed for comfort. also encouraged tylenol in the morning before starting his activity 05/17/2025 Pain, joint, knee, right (ICD-10 - M25.561) tylenol, resume use of knee brace and monitor. consider imaging/injecti on if this progresses 05/17/2025 Abrasion of lower extremity, unspecified laterality, initial encounter (ICD-10 - S80.819A) Plan Of Treatment Medication Medication Name Sig Start Date Stop Date Notes Mupirocin 2 % 1 application E Marketing Specialist ally Twice a day; Duration: 5 days 05/17/2025 Next Appt Details Follow Up: as scheduled, Nanette son: Provider Name:Daniella Allen ce, 10/25/2025 09:00:00 AM, [address], [address], [place], [address], Progress Notes * Yojana MARQUEZ BDOB: [birth year] (80 yo M)Acc No.[id number]:05/17/2025 Progress Notes Patient: Yojana BURNS B Provider: MIMA Meyer :1945 A ge:80 Y S ex:Male Date:05/17/2025 Address:[address] [facility] [facility], [place], [id number] Pcp:Jl Berumen Subjective: * Chief Complaints: * 1 . Follow Up. 2. Having pain in legs/knee. * HPI: g en: 80-year-old male presents today with complaints of pain in both legs, in the quadricep region and his right knee. Things were bothering him a bit but worse after he fell in the garden about 10 days ago after running the Rototiller and had some difficulty getting up. He has some abrasions on both knees and anterior lower legs that are improving with topical mupirocin. He is very comfortable at rest but has pain during motion. He is taking Tylenol but only at bedtime and otherwise has not really attempted any particular treatment. He had been having some dysuria, we checked his urine a couple of days ago which was normal and reports this has resolved with better fluid intake. * ROS: C ONSTITUTIONAL: no L oss of appetite. n o F ever. n o W eakness. G ASTROENTEROLOGY: no A bdominal pain. U ROLOGY: no D ifficulty urinating. * Medical History: H eart disease, Degenerative disc disease, Hypercholestrolemia, Hypertension, type II diabetes, Pacemaker, Cardiac stents x5, Post herpetic neuralgia, negative Cologuard testing December 2016 - positive in 2019 with c-scope showing adenoma times 5., Afib, Shingles, PAD with lower extremity angioplasty 2023, Gastric ulcer. * Surgical History: C ardiac stents x3 , Back surgery x2 , cardiac stents x5 01/17/2015, pacemaker 01/18/2015, stents x 2 06/2019, Stents placed in both legs 05/18/24, EGD 06/28/24, EGD/Colonoscopy 11/2024, SHAYNE ligation at 01/2025. * Hospitalization/Major Diagno stic Procedure: a keke surgeries , 5 stents and pacemaker 12/2014, 3 stents (02/21/2015) 02/19/2015, [facility]- Heart Cath 05/18/24-05/19/24, [facility] - anemia, GIB 06/27-06/28/24. * Family History: F ather: . M other: , diabetes. P aternal Grand Father: . P aternal Grand Mother: . M aternal Grand Father: . M aternal Grand Mother: , diabetes. P aternal uncle: unknown. P aternal aunt: unknown. M aternal uncle: . S iblings: alive, diabetes, kidney disease- dialysis. 1 sister(s) . . * Social History: S moking A re you a:: nonsmoker , Additional Findings: Tobacco User: Chews tobacco. R ecreational drug use: no. Exercise: yes. Home smoke detector use: yes. Caffeine: yes, 1 cup coffee and 1 soda daily. Living Will: Yes. Alcohol: no. Sexually active: yes. Travel outside US: no. Occupation: retired- [employer]. * Medications: T aking Aspirin Low Dose 81 MG Tablet Delayed Release 1 tab(s) orally once a day , Taking Isosorbide Mononitrate ER 30 MG Tablet Extended Release 24 Hour 1 tab(s) orally once a day (in the morning) , Taking ACCU-CHEK RIO PLUS MONITORING KIT USE TO CHECK BLOOD SUGAR ONCE DAILY , Notes to Pharmacist: E11.9 *Please review for potential replacement for e-prescription and drug interaction check*, Taking ACCU CHECK SOFT CLICK LANCETS DIRECTED ONCE A DAY , Notes to Pharmacist: E11.9 *Please review for potential replacement for e-prescription and drug interaction check*, Taking ACCU-CHEK RIO PLUS TEST STRIPS FOR DIABETIC TESTING ONCE A DAY , Notes to Pharmacist: E11.9 *Please review for potential replacement for e-prescription and drug interaction check*, Taking dilTIAZem HCl ER 360 MG/24 HOURS CAPSULE, EXTENDED RELEASE 1 CAP(S) ORALLY ONCE A DAY , Notes to Pharmacist: *Please review and pick correct strength-formulation from Undesk options. If intended option is not shown, discontinue and re-order from Quick Search*, Taking Sotalol HCl (AF) 120 MG Tablet 1 tab(s) orally 2 times a day , Taking Clopidogrel Bisulfate 75 MG Tablet 1 tab(s) orally once a day , Taking Nitroglycerin 0.4 MG Tablet Sublingual 1 tab(s) sublingually every 5 minutes prn , Taking Pantoprazole Sodium 40 MG Tablet Delayed Release 1 tab(s) orally once a day , Taking Tradjenta 5 MG Tablet 1 tab(s) orally once a day , Taking Farxiga 10 MG Tablet TAKE 1 TABLET BY MOUTH ONCE A DAY FOR 90 DAYS , Taking Rosuvastatin Calcium 10 MG Tablet 1 tab(s) orally once a day , Taking Doxazosin Mesylate 4 MG Tablet 1/2 tab(s) orally at bedtime , Taking Furosemide 20 MG Tablet 1 tab(s) orally once a day , Taking metFORMIN HCl ER 500 MG Tablet Extended Release 24 Hour TAKE 2 TABLETS BY MOUTH TWICE DAILY , Discontinued Cefdinir 300 MG Capsule one cap Orally twice daily , Medication List reviewed and reconciled with the patient * Allergies: L yrica: vertigo, Amoxicillin: hives. Objective: * Vitals: N urse: KJ, Pain: 6 legs, Temp: 97.9, RR: 18, HR: 68, BP: 130/68, Ht: 5 ft 9 in, Wt: 187.8, BMI:27.73. * Examination: G eneral Examination: General P leasant and Cooperative, NAD on RA,. Heart: R egular Rate and Rhythm,. Lungs: c lear to auscultation,. Extremities: s everal healing abrasions on both lower legs, more numerous on the right, no active drainage or evidence of cellulitis. good knee ROM but pain with complete extension and quadriceps are tender bilat. Psych N ormal Mood/Affect. Assessment: * Assessment: 1. S train of quadriceps, unspecified laterality, initial encounter - S76.119A (Primary) ? 2 . P ain, joint, knee, right - M25.561 3 . A brasion of lower extremity, unspecified laterality, initial encounter - S80.362Z Plan: * Treatment: 2. P ain, joint, knee, right Clinical Notes: tylenol, resume use of knee brace and monitor. consider imaging/injection if this progresses 3. A brasion of lower extremity, unspecified laterality, initial encounter Start Mupirocin Ointment, 2 %, 1 application, Externally, Twice a day, 5 days, 1, Refills 0. ? * Follow Up: a s scheduled * * Sign off status: Completed true * Provider: MIMA Meyer Date: 0 05/17/2025 Generated for Merissa yousif/Flako/Iris on: 0 07/10/2025 08:58 AM EDT History and Physical Notes * Examination Category Sub-Category Detail Notes Category Not es General Examination Heart: Regular Rate and Rhyt hm, Lungs: clear to auscultatio n, Extremities: several healing jessenia sions on both lower legs, more numerous on the right, no active drainage or evidence of cellulitis. good knee ROM but pain with complete extension and quadriceps are tender bilat General Pleasant and Coopera tive, NAD on RA, Psych Normal Mood/Affect
--- OUTSIDE RECORDS SUMMARY | 2025-06-07 07:45 | XMS_ITS ---
Author Organization [facility] [place] Address [address] [place] [address] Care Team Providers Care Interactive Media Project Manager Name Role Phone Jl Berumen Primary Care Provider Daniella Sánchez [phone] Allergies Allergen (clinical drug ingredient) Drug/Non Drug Allergy documented on EMR Reaction Allergy Type Onset Date Status amoxicillin Amoxicillin hives Drug Allergy Act beth pregabalin Lyrica vertigo Drug Allergy Active REASON FOR VISIT Oozing wounds Medications Medication SIG (Take, Route, Frequency, Duration) Notes Start Date End Date Status Rosuvastatin Calcium 10 MG 1 tab(s) orally once a day; Duration: 90 days Active metFORMIN HCl ER 500 MG TAKE 2 TABLETS BY MOUTH TWICE DAILY; Duration: 90 Active Furosemide 20 MG 1 tab(s) orally once a day; Duration: 90 days 08/15/2024 Active Mupirocin 2 % 1 application Externally Twice a day; Duration: 5 days 05/17/2025 Active Doxazosin Mesylate 4 MG 1/2 tab(s) orally at bedtime; Duration: 90 days Active Farxiga 10 MG TAKE 1 TABLET BY MOUTH ONCE A DAY FOR 90 DAYS; Duration: 90 days Active Nitroglycerin 0.4 MG 1 tab(s) sublingually every 5 minutes prn; Duration: 30 days Active Clopidogrel Bisulfate 75 MG 1 tab(s) orally once a day; Duration: 30 day(s) Active Tradjenta 5 MG 1 tab(s) orally once a day; Duration: 90 days Active Pantoprazole Sodium 40 MG 1 tab(s) orally once a day; Duration: 30 days Active ACCU-CHEK RIO PLUS MONITORING KIT USE TO CHECK BLOOD SUGAR ONCE DAILY E11.9 *Please review for potential replacement for e-prescription and drug interaction check* 07/11/2018 Active ACCU-CHEK RIO PLUS TEST STRIPS FOR DIABETIC TESTING ONCE A DAY; Duration: 90 DAYS E11.9 *Please review for potential replacement for e-prescription and drug interaction check* 07/11/2018 Active ACCU CHECK SOFT CLICK LANCETS DIRECTED ONCE A DAY; Duration: 90 DAYS E11.9 *Please review for potential replacement for e-prescription and drug interaction check* 07/11/2018 Active Sotalol HCl (AF) 120 MG 1 tab(s) orally 2 times a day Active dilTIAZem HCl ER 360 MG/24 HOURS 1 CAP(S) ORALLY ONCE A DAY *Please review and pick correct strength-formulati on from [employer] options. If intended option is not shown, discontinue and re-order from Quick Search* Active Isosorbide Mononitrate ER 30 MG 1 tab(s) orally once a day (in the morning) Active Aspirin Low Dose 81 MG 1 tab(s) orally once a day Active Vital Signs Temperature 97.9 degrees Fahrenheit 06/07/20 25 Blood pressure systolic 138 mm Hg 06/07/20 25 Blood pressure diastolic 60 mm Hg 025 Heart Rate 64 /min 06/07/2025 Height 5 ft 9 in in 06/07/2025 Weight 188.4 lbs 06/07/2025 BMI 27.82 kg/m2 06/07/2025 Encounters Encounter Location Date Provider Diagnosis [facility] [place] [address] [facility] [address] [place], [place] [address] 06/07/2025 Daniella Sánchez Skin tear of right upper extremity S41.111A and Multiple skin tears T14.8XXA Assessments Encounter Date Diagnosis (ICD Code) Assessment Notes Treatment Notes Treatment Clinical Notes Section Notes 06/07/2025 Skin tear of right upper extremity (ICD-10 - S41.111A) No evidence of infection at this time. Cleanse daily with warm soapy water and pat dry, dry dressing. Allow Steri-Strips to fall off naturally. Return precautions reviewed 06/07/2025 Multiple skin tears (ICD-10 - T14.8XXA) Plan Of Treatment Next Appt Details Follow Up: as scheduled, Nanette son: Provider Name:Daniella Allen ce, 10/25/2025 09:00:00 AM, [address], [address], [place], [address], Progress Notes * Yojana MARQUEZ BDOB: [birth year] (80 yo M)Acc No.[id number]:06/07/2025 Progress Notes Patient: Yojana BURNS B Provider: MIMA Meyer :1945 A ge:80 Y S ex:Male Date:06/07/2025 Address:[address] [place] [address], [facility], [id number] Pcp:Jl Berumen Subjective: * Chief Complaints: * 1 . Oozing wounds. * HPI: g en: 80-year-old male presents today with complaints of skin tears and laceration on the right arm. He obtained these a week or so ago when he fell in the barn. Lost his balance and fell backwards. He has a skin tear on the posterior aspect of the upper right arm, laceration on the right forearm and a skin tear on the right forearm. Treated topically with mupirocin. No fevers. Clear yellowish drainage but no purulence. * ROS: C ONSTITUTIONAL: Reviewed, No Symptoms Reported: Y es. * Medical History: H eart disease, Degenerative [...] and pacemaker 12/2014, 3 stents (02/21/2015) 02/19/2015, [facility]- Heart Cath 05/18/24-05/19/24, [facility] - anemia, GIB 06/27-06/28/24. * Family [...] *Please review and pick correct strength-formulation from [employer] options. If intended option is not shown, [...] 2 TABLETS BY MOUTH TWICE DAILY , Taking Mupirocin 2 % Ointment 1 application Externally Twice a day , Medication List reviewed and reconciled with the patient * Allergies: L yrica: vertigo, Amoxicillin: hives. Objective: * Vitals: N urse: KJ, Pain: 0, Temp: 97.9, RR: 18, HR: 64, BP: 138/60, Ht: 5 ft 9 in, Wt: 188.4, BMI:27.82. * Examination: G eneral Examination: General P leasant and Cooperative, NAD on RA,. Extremities: n o clubbing, no edema,. Psych N ormal Mood/Affect. s kin tear right upper arm without skin flap present but no erythema or purulent drainage. laceration is approximated and has some scabbing but also not significant erythema or evidence of infection. Skin tear on the right forearm with flap present but loose...distal aspect is dark and firm and trimmed off with sterile scissors. Cleansed with betadine and steristrips applied to remaining skin tear. Assessment: * Assessment: 1. S kin tear of right upper extremity - S41.111A (Primary) 2 . M ultiple skin tears - T14.8XXA Plan: * Treatment: * Follow Up: a s scheduled * * Sign off status: Completed true * Provider: MIMA Meyer Date: 0 06/07/2025 Generated for Merissa yousif/Flako/eTkimmysmitting on: 0 07/10/2025 08:57 AM EDT History and Physical Notes * Examination Category Sub-Category Detail Notes Category Not es General Examination Extremities: no clubbing, no edema , skin tear right upper arm without skin flap present but no erythema or purulent drainage. laceration is approximated and has some scabbing but also not significant erythema or evidence of infection. Skin tear on the right forearm with flap present but loose...distal aspect is dark and firm and trimmed off with sterile scissors. Cleansed with betadine and steristrips applied to remaining skin tear. General Pleasant and Coopera tive, NAD on RA, Psych Normal Mood/Affect
--- OUTSIDE RECORDS SUMMARY | 2025-06-25 04:30 | XMS_ITS ---
Author Organization [facility] [place] Address [address] [place] [address] Care Team Providers Care Master Sonar Technician Name Role Phone Jl Berumen Primary Care Provider [phone] Daniella Sánchez [phone] Allergies Allergen (clinical drug ingredient) Drug/Non Drug Allergy documented on EMR Reaction Allergy Type Onset Date Status amoxicillin Amoxicillin hives Drug Allergy Act beth pregabalin Lyrica vertigo Drug Allergy Active Results Component Value Reference Range Notes IRON, TIBC AND FERRITIN JENNIFER Dominique (5616) Reviewed date:06/27/2025 01:57:21 PM Interpretation: Performing Lab:[facility] [id number] LenetteHippo Manager Software, [id number] Claude Banks Notes/Report: NON-FASTING; NON-FASTING; NON-FASTING; NON-FASTING; NON-FAST FASTING:YES FASTING: YES IRON, TOTAL 138 50-180 mcg/dL IRON BINDING CAPACITY 406 250-425 mcg/dL (edie c) % SATURATION 34 20-48 % (calc) FERRITIN 16 24-380 ng/mL LIPID PANEL, STANDARD (7600) Reviewed date:06/27/2025 01:57:21 PM Interpretation: Performing Lab:[facility] [id number] Bl[address], [facility] ClinicTdmcYF[address] Claude Banks Notes/Report: NON-FASTING; NON-FASTING; NON-FASTING; NON-FASTING; [...] of LDL-C. Josiah SS et al. ROME. 2013;310(51): 6070-9435 (http://education.Portable [employer]/faq/LOF259) CHOL/HDLC RATIO 3.3 <5.0 (calc) NON HDL CHOLESTEROL 103 <130 mg/dL (calc) For patients with diabetes plus 1 major ASCVD risk factor, treating to a non-HDL-C goal of <100 mg/dL (LDL-C of <70 mg/dL) is considered a therapeutic option. COMPREHENSIVE METABOLIC JENNIFER Dominique (58522) Reviewed date:06/27/2025 01:57:21 PM Interpretation: Performing Lab:CARL, [facility] [id number] [facility], [facility] [id number] Claude Banks Notes/Report: NON-FASTING; NON-FASTING; NON-FASTING; NON-FASTING; [...] Reviewed date:06/27/2025 01:57:21 PM Interpretation: Performing Lab:[facility] [id number], [facility] RapidsOlpoNW[address] Claude Banks Notes/Report: NON-FASTING; NON-FASTING; NON-FASTING; NON-FASTING; [...] MPV 10.3 7.5-12.5 fL ABSOLUTE NEUTROPHILS 4039 9839-6462 cells/uL ABSOLUTE LYMPHOCYTES 8220 447-2248 cells/uL ABSOLUTE MONOCYTES 680 200-950 cells/uL ABSOLUTE EOSINOPHILS 510 15-500 cells/uL ABSOLUTE BASOPHILS 41 0-200 cells/uL NEUTROPHILS 59.4 LYMPHOCYTES 22.5 MONOCYTES 10.0 EOSINOPHILS 7.5 BASOPHILS 0.6 HEMOGLOBIN A1c (496) Reviewed date:06/27/2025 01:57:21 PM Interpretation: Performing Lab:[facility] [id number] [address], [facility] RapidsDjtkCH[address] Claude Banks Notes/Report: NON-FASTING; NON-FASTING; NON-FASTING; NON-FASTING; [...] Reviewed date:06/27/2025 01:57:21 PM Interpretation: Performing Lab:CARL, [facility] [employer] [id number] [facility], BriggoMrpoVR[address] Claude Banks Notes/Report: NON-FASTING; NON-FASTING; NON-FASTING; NON-FASTING; NON-FAST FASTING:YES FASTING: YES VITAMIN B12 097 189-9316 pg/mL TSH W/REFLEX TO FT4 (90559) Reviewed date:06/27/2025 01:57:21 PM Interpretation: Performing Lab:[facility] [id number], GetyooJomzSS[address] Claude Banks Notes/Report: NON-FASTING; NON-FASTING; NON-FASTING; NON-FASTING; [...] review and pick correct strength-formulati on from [employer] options. If intended option is not shown, [...] Notes Problem History of iron deficiency anemia (146607168) History of iron deficiency anemia (Z86.2) Active confirmed Problem Benign prostatic hypertrophy without outflow obstruction (430040899) Benign prostatic hyperplasia without lower urinary tract symptoms (N40.0) Active confirmed Vital Signs Temperature 97.6 degrees Fahrenheit 06/25/20 25 Blood pressure systolic 144 mm Hg 06/25/20 25 Blood pressure diastolic 72 mm Hg 025 Heart Rate 78 /min 06/25/2025 Height 5 ft 9 in in 06/25/2025 Weight 187.2 lbs 06/25/2025 BMI 27.64 kg/m2 06/25/2025 Encounters Encounter Location Date Provider Diagnosis [facility] [place] [address] [place] [address] 06/25/2025 Daniella Sánchez 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 ; Medicare annual wellness visit, subsequent Z00.00 ; Hypertension, essential I10 ; Paroxysmal atrial fibrillation I48.0 ; 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 monitor Postherpetic neuralgia stable Next Appt Details Follow Up: 4 Months, Reason: Provider Name:Daniella cruz, 10/25/2025 09:00:00 AM, [address] [place] [facility] [address] [facility], [address], [place], [address], Progress Notes * Yojana MARQUEZ BDOB: [birth year] (80 yo M)Acc No.[id number]:06/25/2025 Progress Notes Patient: Yojana BURNS Provider: MIMA Meyer :1945 A ge:80 Y S ex:Male Date:06/25/2025 Address:[address] [place] [address], [place], [id number] Pcp:Jl Berumen Subjective: * Chief Complaints: * [...] a tendency to fall backward. Followed by [facility] Cardiology group for management of PAF and [...] and pacemaker 12/2014, 3 stents (02/21/2015) 02/19/2015, [facility]- Heart Cath 05/18/24-05/19/24, [facility] - anemia, GIB 06/27-06/28/24. * Family [...] Y es. Assessment: * Assessment: 1. M [facility] annual wellness visit, subsequent - Z00.00 (Primary) 2 . T ype 2 diabetes mellitus with proteinuric diabetic nephropathy - E11.21 3 . H ypertension, essential - I10 4 . P aroxysmal atrial fibrillation - I48.0 5. C oronary artery disease involving levelock coronary artery of levelock heart without angina pectoris - I25.10 6 . P ostherpetic neuralgia - B02.29 7 . B HI 27.0-27.9,adult - Z68.27 8 . H istory [...] labs to Cardiology. ?LAB: LIPID PANEL, STANDARD (1350) (Collection Date & Time - 06/25/2025 09:27 [...] labs to Cardiology. ?LAB: COMPREHENSIVE METABOLIC PANEL (14062) (Collection Date & Time - 06/25/2025 09:27 [...] labs to Cardiology. ?LAB: CBC (INCLUDES DIFF/PLT) (9394) (Collection Date & Time - 06/25/2025 09:27 [...] - % * A BSOLUTE NEUTROPHILS 4039 5067-9253 - cells/uL * L YMPHOCYTES 22.5 - % * A BSOLUTE LYMPHOCYTES [phone] - cells/uL * M ONOCYTES 10.0 - [...] control.??3.?Hypertension, essential?LAB: IRON, TIBC AND FERRITIN PANEL (4556) (Collection Date & Time - 06/25/2025 09:27 [...] labs to Cardiology. ?LAB: LIPID PANEL, STANDARD (1280) (Collection Date & Time - 06/25/2025 09:27 [...] labs to Cardiology. ?LAB: COMPREHENSIVE METABOLIC PANEL (00544) (Collection Date & Time - 06/25/2025 09:27 [...] labs to Cardiology. 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 ?LAB: COMPREHENSIVE METABOLIC PANEL (08817) (Collection Date & Time - 06/25/2025 09:27 [...] labs to Cardiology. ?LAB: CBC (INCLUDES DIFF/PLT) (4362) (Collection Date & Time - 06/25/2025 09:27 [...] - % * A BSOLUTE NEUTROPHILS [phone] - cells/uL * L YMPHOCYTES 22.5 - % * A BSOLUTE LYMPHOCYTES [phone] - cells/uL * M ONOCYTES 10.0 - [...] labs to Cardiology. ?LAB: LIPID PANEL, STANDARD (2830) (Collection Date & Time - 06/25/2025 09:27 [...] labs to Cardiology. ?LAB: COMPREHENSIVE METABOLIC PANEL (24232) (Collection Date & Time - 06/25/2025 09:27 [...] labs to Cardiology. ?LAB: CBC (INCLUDES DIFF/PLT) (6866) (Collection Date & Time - 06/25/2025 09:27 [...] - % * A BSOLUTE NEUTROPHILS 4039 4421-3897 - cells/uL * L YMPHOCYTES 22.5 - % * A BSOLUTE LYMPHOCYTES [phone] - cells/uL * M ONOCYTES 10.0 - [...] AM)* Value Reference Range V ITAMIN B12 349 202-4839 - pg/mL * Lyn Rollins 06/27/2025 01: 55:40 PM EDT > pt and his informed. Faxed labs to Cardiology. 9.?Poor balance?LAB: VITAMIN B12 (927) (Collection Date & Time - 06/25/2025 09:27 AM)* Value Reference Range V ITAMIN B12 [phone] - pg/mL * Lyn Rollins 06/27/2025 01: 55:40 PM EDT > pt and his informed. Faxed labs to Cardiology. ?LAB: TSH W/REFLEX TO FT4 (96649) (Collection Date & Time - 06/25/2025 09:27 [...] Deltoid * Procedure Codes: 9 0679 Arexvy, 59868 ADMINISTRATION IMMUNIZATION ONE VACCINE, G0439 ANNUAL WELLNESS [...] 0 06/25/2025 Generated for Printi ng/Faxing/eTransmitting on: 0 07/10/2025 08:58 AM EDT History [...]
[2025-07-10] MEDS: SODIUM CHLORIDE 0.9% 10ML SYR (RAD ONLY) 10 ML IV (08:55)
[2025-07-10] MEDS: IOPAMIDOL-300 (61%) 100ML VIAL 100 ML IV (08:55)
--- OUTSIDE RECORDS SUMMARY | 2025-07-10 08:58 | XMS_ITS | Patient Health Record ---
Author Organization [facility] [place] Address [address] [place] [address] Care Team Providers Care Financial Sales Associate Name Role Phone Jl Berumen Primary Care Provider [phone] Daniella Sánchez Unavailable [phone] Migration, Provider Unavailable Unavailable Allergies Allergen (clinical drug ingredient) Drug/Non Drug Allergy documented on EMR Reaction Allergy Type Onset Date Status amoxicillin Amoxicillin hives Drug Allergy Act beth pregabalin Lyrica vertigo Drug Allergy Active Results Component Value Reference Range Notes M-Complete Blood Count Auto Diff Reviewed date:11/16/2024 09:35:27 AM Interpretation: Performing Lab: Notes/Report: WBC 5.7 4.8-10.8 K/mm3 RBC 5.64 4.60-6.20 M/mm3 HGB 14.1 14.1-18.0 g/dL HCT 43.4 42.0-52.0 % MCV 77.0 80-94 fl MCH 25.0 27.0-31.2 pg MCHC 32.5 31.8-35.4 g/dL RDW 23.0 11.5-17.5 % PLT 222 142-424 K/mm3 MPV 10.1 7.4-10.4 fl NE% 57.8 37.0-80.0 % LY% 25.6 10-50 % MO% 10.4 1.7-9.3 % EO% 5.3 0.1-12.0 % BA% 0.7 0.1-2.0 % NE# 3.3 1.8-7.8 K/mm3 LY# 1.5 0.7-4.5 K/mm3 MO# 0.6 0.1-1.0 K/mm3 EO# 0.3 0.0-0.4 K/mm3 BA# 0.0 0-0.2 K/mm3 M-Basic Metabolic Panel Reviewed date:11/16/2024 09:35:27 AM Interpretation: Performing Lab: Notes/Report: NA 141 136-145 mmol/L K 3.8 3.5-5.1 mmoL/L CL 104 98-107 mmol/L CO2 29 22.0-30.0 mmol/L GAP 11.8 5-15 mEq/L BUN 22 9-20 mg/dl CREATT 0.90 0.66-1.25 mg/dl GFRAA 98 >60 ML/MIN EGFR 81 >60 ml/min GLU 160 74-100 mg/dl CA 10.0 8.4-10.2 mg/dl M-Hemoglobin A1C Reviewed date:11/16/2024 09:35:27 AM Interpretation: Performing Lab: Notes/Report: HGBA1C 6.5 4.0-6.0 % < 6% Non-Diabetic Level < 7% Controlled Diabetic Level > 8% Poorly Controlled Diabetic Level M-Ferritin Reviewed date:11/16/2024 09:35:28 AM Interpretation: Performing Lab: Notes/Report: FIDE 13.1 17.9-464 ng/ml Delta: 26.5 o n 10/17/24-1013 H-FETIBC Reviewed date:11/15/2024 07:08:25 PM Interpretation: Performing Lab: Notes/Report: FE 81 49-181 ug/dL DTIBC 424 261-462 ug/dL IRONSAT 19.44476 15-55 % H-MALBCREA Reviewed date:02/20/2025 11:13:20 AM Interpretation: Performing Lab: Notes/Report: Units: mg/g creat Normal: 0 - 29 Moderately Increased: 30 - 300 Severely Increased: >300 UCREAT 47 Not Estab. mg/dL Random urine reference range not established. 24 hour urine samples recommended. MICROALB 33.600 0-16.7 mg/L MALBCREAT 71.4 HEMOGLOBIN A1c (496) Reviewed date:06/27/2025 01:57:21 PM Interpretation: Performing Lab:[place] [id number] [employer] [facility] HospitalFwhzED[address] Claude Banks Notes/Report: NON-FASTING; NON-FASTING; NON-FASTING; NON-FASTING; [...] A1c for diagnosis of diabetes for children. CBC (INCLUDES DIFF/PLT) (639 9) Reviewed date:06/27/2025 01:57:21 PM Interpretation: Performing Lab:CARL goodideazs-[employer] [id number] [employer] [place] [id number] Claude Banks Notes/Report: NON-FASTING; NON-FASTING; NON-FASTING; NON-FASTING; [...] MPV 10.3 7.5-12.5 fL ABSOLUTE NEUTROPHILS 4039 4217-6664 cells/uL ABSOLUTE LYMPHOCYTES 5701 559-2696 cells/uL ABSOLUTE MONOCYTES 680 200-950 cells/uL ABSOLUTE EOSINOPHILS 510 15-500 cells/uL ABSOLUTE BASOPHILS 41 0-200 cells/uL NEUTROPHILS 59.4 LYMPHOCYTES 22.5 MONOCYTES 10.0 EOSINOPHILS 7.5 BASOPHILS 0.6 COMPREHENSIVE METABOLIC PANE L (23272) Reviewed date:06/27/2025 01:57:21 PM Interpretation: Performing Lab:CARL [employer] [id number] [employer], [facility] CenterOeqsHW[address] Claude Banks Notes/Report: NON-FASTING; NON-FASTING; NON-FASTING; NON-FASTING; [...] 14 10-35 U/L ALT 13 9-46 U/L LIPID PANEL, STANDARD (7600) Reviewed date:06/27/2025 01:57:21 PM Interpretation: Performing Lab:[place] [facility]-[employer] [id number] [employer] [facility], [facility] ClinicFmfbRW[address] Claude Banks Notes/Report: NON-FASTING; NON-FASTING; NON-FASTING; NON-FASTING; [...] equation in the estimation of LDL-C. Josiah MACIAS et al. ROME. 2013;310(16): 7287-1755 (http://education.Mezzobit/faq/CZW652) CHOL/HDLC RATIO 3.3 <5.0 (calc) NON HDL CHOLESTEROL 103 <130 mg/dL (calc) For patients with diabetes plus 1 major ASCVD risk factor, treating to a non-HDL-C goal of <100 mg/dL (LDL-C of <70 mg/dL) is considered a therapeutic option. IRON, TIBC AND FERRITIN JENNIFER Dominique (5616) Reviewed date:06/27/2025 01:57:21 PM Interpretation: Performing Lab:CB, goodideazs-[place] [address], [place] TrogTX[address] Claude Banks Notes/Report: NON-FASTING; NON-FASTING; NON-FASTING; NON-FASTING; NON-FAST FASTING:YES FASTING: YES IRON, TOTAL 138 50-180 mcg/dL IRON BINDING CAPACITY 406 250-425 mcg/dL (edie c) % SATURATION 34 20-48 % (calc) FERRITIN 16 24-380 ng/mL Urinalysis Reviewed date:05/14/2025 02:01:56 PM Interpretation: Performing Lab: Notes/Report: Color/Clarity yellow Leuk neg Nitrite neg Urobili 0.2 Protein neg pH 5.5 Blood neg Sp. Gr. 1.010 Ketone neg Bili neg Glucose >=1000 M-Hemoglobin A1C Reviewed date:02/20/2025 11:17:17 AM Interpretation: Performing Lab: Notes/Report: HGBA1C 7.0 4.0-6.0 % < 7% Controlled Diabetic Level > 8% Poorly Controlled Diabetic Level < 6% Non-Diabetic Level M-Comprehensive Metabolic Pa leann Reviewed date:02/20/2025 11:17:17 AM Interpretation: Performing Lab: Notes/Report: NA 142 136-145 mmol/L K 4.1 3.5-5.1 mmoL/L CL 106 98-107 mmol/L CO2 30 22.0-30.0 mmol/L GAP 10.1 5-15 mEq/L BUN 24 9-20 mg/dl CREATT 0.80 0.66-1.25 mg/dl GFRAA 113 >60 ML/MIN EGFR 93 >60 ml/min GLU 158 74-100 mg/dl CA 9.8 8.4-10.2 mg/dl BILIT 0.5 0.2-1.3 mg/dl AST 21 17-59 U/L ALT 16 12-78 U/L TP 6.6 6.3-8.2 g/dl ALB 4.4 3.5-5.0 g/dl GLOB 2.2 1.3-3.2 g/dL AGRATIO 2.0 1.1-1.8 ALP 91 38-126 U/L VITAMIN B12 (927) Reviewed date:06/27/2025 01:57:21 PM Interpretation: Performing Lab:CARL goodideazs-[address] [employer], [place] KhqlSL[address] Claude Banks Notes/Report: NON-FASTING; NON-FASTING; NON-FASTING; NON-FASTING; NON-FAST FASTING:YES FASTING: YES VITAMIN B12 967 604-3706 pg/mL TSH W/REFLEX TO FT4 (13019) Reviewed date:06/27/2025 01:57:21 PM Interpretation: Performing Lab:CARL [address] [employer], [facility] MedicalVvntWZ[address] Claude Banks Notes/Report: NON-FASTING; NON-FASTING; NON-FASTING; NON-FASTING; NON-FAST FASTING:YES FASTING: YES TSH W/REFLEX TO FT4 1.31 0.40-4.50 mIU/L Reason For Referral No Information Medications Medication SIG (Take, Route, Frequency, Duration) Notes Start Date End Date Status Farxiga 10 MG 1 tablet Orally Once a day; Duration: 90 days Active Doxazosin Mesylate 4 MG 1/2 tab(s) orally at bedtime; Duration: 90 days Active Sotalol HCl (AF) 120 MG 1 tab(s) orally 2 times a day Active Clopidogrel Bisulfate 75 MG 1 tab(s) orally once a day; Duration: 30 day(s) Active Nitroglycerin 0.4 MG 1 tab(s) sublingually every 5 minutes prn; Duration: 30 days Active Pantoprazole Sodium 40 MG 1 tab(s) orally once a day; Duration: 30 days Active ACCU-CHEK RIO PLUS TEST STRIPS FOR DIABETIC TESTING ONCE A DAY; Duration: 90 DAYS E11.9 *Please review for potential replacement for e-prescription and drug interaction check* 07/11/2018 Active dilTIAZem HCl ER 360 MG/24 HOURS 1 CAP(S) ORALLY ONCE A DAY *Please review and pick correct strength-formulati on from eSentire options. If intended option is not shown, discontinue and re-order from Quick Search* Active ACCU CHECK SOFT CLICK LANCETS DIRECTED ONCE A DAY; Duration: 90 DAYS E11.9 *Please review for potential replacement for e-prescription and drug interaction check* 07/11/2018 Active metFORMIN HCl ER 500 MG TAKE 2 TABLETS BY MOUTH TWICE DAILY; Duration: 90 Active Mupirocin 2 % 1 application Externally Twice a day; Duration: 5 days 05/17/2025 Active Rosuvastatin Calcium 10 MG 1 tab(s) orally once a day; Duration: 90 days Active Tradjenta 5 MG 1 tab(s) orally once a day; Duration: 90 days Active Aspirin Low Dose 81 MG 1 tab(s) orally once a day Active Isosorbide Mononitrate ER 30 MG 1 tab(s) orally once a day (in the morning) Active ACCU-CHEK RIO PLUS MONITORING KIT USE TO CHECK BLOOD SUGAR ONCE DAILY E11.9 *Please review for potential replacement for e-prescription and drug interaction check* 07/11/2018 Active Furosemide 20 MG 1 tab(s) orally once a day; Duration: 90 days 08/15/2024 Active Immunizations Vaccine Route Administration Date Status Comme nts Zostavax (Shingles) SC Subcutaneous 05/20/2015 Administere d Td Adult IM Intramuscular 04/27/2007 Administered Prevnar PCV-20 (Pneumococcal conjugate 20) IM Intramuscular 08/15/2024 Administered Prevnar PCV-13 (Pneumococcal conjugate 13) IM Intramuscular 01/18/2019 Administered Pneumovax 23 IM Intramuscular 08/06/2017 Administered Influenza (Fluzone)--Medicare only IM Intramuscular 08/29/2012 Administered Influenza (Fluzone)--Medicare only IM Intramuscular 09/17/2014 Administered Influenza (Fluzone)--Medicare only IM Intramuscular 09/09/2015 Administered Influenza (Fluzone)--Medicare only IM Intramuscular 08/21/2016 Administered Influenza (Fluzone)--Medicare only IM Intramuscular 08/06/2017 Administered Fluzone High Dose IM Intramuscular 07/11/2018 Administered Fluzone High Dose IM Intramuscular 09/13/2019 Administered Fluzone High Dose IM Intramuscular 07/24/2020 Administered Fluzone High Dose IM Intramuscular 08/27/2021 Administered Fluzone High Dose IM Intramuscular 08/25/2023 Administered Fluzone High Dose IM Intramuscular 08/15/2024 Administered FLUZONE 6MO - OLDER IM Intramuscular 09/04/2022 Administer ed Fluvirin--Influenza vaccine 3+ year IM Intramuscular 09/07/2008 Administered Fluvirin--Influenza vaccine 3+ year IM Intramuscular 08/15/2009 Administered Fluvirin--Influenza vaccine 3+ year IM Intramuscular 09/11/2010 Administered Fluvirin--Influenza vaccine 3+ year Unknown 08/19/2013 Administered Covid Moderna Unknown 12/24/2020 Administered Covid Moderna Unknown 01/21/2021 Administered Boostrix IM Intramuscular 08/07/2023 Administered Arexvy IM Intramuscular 06/25/2025 Administered Problems Problem Type SNOMED Code ICD Code Onset Dates Problem Status W/U Status Risk Notes Problem Paroxysmal atrial fibrillation (872625719) Paroxysmal atrial fibrillation (I48.0) Active confirmed Problem Hyperlipidemia (00258340) Hyperlipemia, idiopathic familial (E78.5) Active confirmed Problem Essential hypertension (97803896) Hypertension, essential (I10) Active confirmed Problem Back pain (472730659) Back pain (M54.9) Active confirmed Problem Postherpetic neuralgia (2170295) Postherpetic neuralgia (B02.29) Active confirmed Problem Body mass index 30+ - obesity (575654730) BMI 30.0-30.9,adult (Z68.30) Active confirmed Problem Atherosclerosis of coronary artery without angina pectoris (917790833057373) Atherosclerosis of [place] coronary artery of [place] heart without angina pectoris (I25.10) Active confirmed Problem Atherosclerotic heart disease of [place] coronary artery without angina pectoris (673948727914104) Coronary artery disease involving [place] coronary artery of [place] heart without angina pectoris (I25.10) Active confirmed Problem Body mass index 25-29 - overweight (816156714) BMI 28.0-28.9,adult (Z68.28) Active confirmed Problem Diabetic renal disease (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) 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) Active confirmed Problem Angina (892118982) Coronary emily ry disease involving [place] coronary artery of [place] heart with angina pectoris (I25.119) Active confirmed Problem Peripheral vascular disease (099986823) PAD (peripheral artery disease) (I73.9) Active confirmed Problem Cognitive impairment (404062076) Cognitive impairment (R41.89) Active confirmed Problem Iron deficiency anemia (50439528) Iron deficiency anemia, unspecified iron deficiency anemia type (D50.9) Active confirmed Problem Angina pectoris (142312482) Angina pectoris (I20.9) Active confirmed Problem BMI 25-29 - overweight (415302889) BMI 29.0-29.9,adult (Z68.29) Active confirmed Problem History of shingles (604883496092102) History of shingles (Z86.19) Active confirmed Problem Pain in right sacroiliac joint (78063782835067351) Pain of right sacroiliac joint (M53.3) Active confirmed Problem Benign prostatic hypertrophy without outflow obstruction (309297792) Benign prostatic hyperplasia without lower urinary tract symptoms (N40.0) Active confirmed Problem Angina co-occurrent and due to coronary arteriosclerosis (29907533888735665) Coronary artery disease of [place] artery of [place] heart with stable angina pectoris (I25.118) Active confirmed Problem Skin sensation disturbance (38906510) Left leg paresthesias (R20.2) Active confirmed Problem History of iron deficiency anemia (817869052) History of iron deficiency anemia (Z86.2) Active confirmed Problem Poor balance (155557853) Poor balance (R26.89) Active confirmed Vital Signs Heart Rate 78 /min 06/25/2025 Temperature 97.6 degrees Fahrenheit 06/25/2025 Blood pressure diastolic 72 mm Hg 06/25/2025 Height 5 ft 9 in in 06/25/2025 Blood pressure systolic 144 mm Hg 06/25/2025 Weight 187.2 lbs 06/25/2025 BMI 27.64 kg/m2 06/25/2025 Encounters Encounter Location Date Provider Diagnosis [facility] [address] [place] [address] 02/24/2025 Provider Migration [facility] [place] [address] [place], [place] [address] 08/15/2024 Daniella Sánchez 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 ; Hypertension, essential I10 ; Paroxysmal atrial fibrillation I48.0 ; Iron deficiency anemia, unspecified iron deficiency anemia type D50.9 ; Coronary artery disease involving [place] coronary artery of [place] heart with angina pectoris I25.119 and Immunization(s) administered Z23 [facility] [place] [address] [place], [place] [address] 12/04/2024 Daniella Sánchez Hypertension, essential I10 ; 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 ; Paroxysmal atrial fibrillation I48.0 ; Iron deficiency anemia, unspecified iron deficiency anemia type D50.9 ; Other injury of unspecified body region, initial encounter T14.8XXA and Local infection of the skin and subcutaneous tissue, unspecified L08.9 [facility] [place] [address] [place] [address] 12/30/2024 Daniella Sánchez Laceration of left hand without foreign body, initial encounter S61.412A [facility] [place] [address] [place], [place] [address] 02/20/2025 Daniella Sánchez Hypertension, essential I10 ; 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 ; Paroxysmal atrial fibrillation I48.0 and Iron deficiency anemia, unspecified iron deficiency anemia type D50.9 [facility] [place] [address] [place] [address] 03/07/2025 Jl Berumen Infective pharyngiti s J02.9 [facility] [place] [address] [place] [address] 05/14/2025 Daniella Sánchez Dysuria R30.0 [facility] [place] [address] [facility] [address] [place] [address] 05/17/2025 Daniella Sánchez Strain of quadriceps , unspecified laterality, initial encounter S76.119A ; Pain, joint, knee, right M25.561 and Abrasion of lower extremity, unspecified laterality, initial encounter S80.819A [facility] [place] [address] [facility] [address] [place], [place] [address] 06/07/2025 Daniella Sánchez Skin tear of right upper extremity S41.111A and Multiple skin tears T14.8XXA [facility] [place] [address] [facility] [address] [place], [place] [address] 06/25/2025 Daniella Sánchez 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 ; Medicare annual wellness visit, subsequent Z00.00 ; Hypertension, essential I10 ; Paroxysmal atrial fibrillation I48.0 ; Coronary artery disease involving [place] coronary artery of [place] heart without angina pectoris I25.10 ; Postherpetic neuralgia B02.29 ; BMI 27.0-27.9,adult Z68.27 ; History of iron deficiency anemia Z86.2 ; Poor balance R26.89 ; Encounter for immunization Z23 and Benign prostatic hyperplasia without lower urinary tract symptoms N40.0 [facility] [place] [address] [facility] [address] [place] [address] 08/15/2024 Daniella Perkinsence [facility] [place] [address] [facility] [address] [place], [place] [address] 09/11/2024 Daniellagabi PerkinsPrincess [facility] [address] [address] 11/13/2024 Daniella Sánchez SOB (shortness of breath) R06.02 [facility] [place] [address] [facility] [address] [place] [address] 12/04/2024 Daniellagabi PerkinsPrincess [facility] [place] [address] [facility] [address] [place] [address] 06/07/2025 Daniella Sánchez Coronary artery disease of [place] artery of [place] heart with stable angina pectoris I25.118 [facility] [place] [address] [facility] [address] [place] [address] 06/14/2025 Daniella Sánchez Assessments Encounter Date Diagnosis (ICD Code) Assessment Notes Treatment Notes Treatment Clinical Notes Section Notes 11/13/2024 SOB (shortness of breath) (ICD-10 - R06.02) 12/04/2024 Hypertension, essential (ICD-10 - I10) well controlled on current regimen, cardiology following, mildly elevated today but normal readings at home and would rather he run a bit higher given his age and difficulty with balance 12/04/2024 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 No medication changes recommended. Eye exam UTD. Tolerating statin therapy. On ARB previously but stoppe due to cardiovascular management issues...Creatinine /GFR normal on most recent labs, chronic stable microalbuminuria 03/07/2025 Infective pharyngitis (ICD-10 - J02.9) Due to duration of symptoms with age and physical exam findings will treat with Cefdinir (1 capsule twice daily). Gargle with warm salt water twice daily to relieve inflammation of throat. 05/14/2025 Dysuria (ICD-10 - R30.0) 05/17/2025 Pain, joint, knee, right (ICD-10 - M25.561) tylenol, resume use of knee brace and monitor. consider imaging/injection if this progresses 05/17/2025 Strain of quadriceps, unspecified laterality, initial encounter (ICD-10 - S76.119A) suspect strain r/t fall, encouraged better fluid intake, rest/stretching and heat as needed for comfort. also encouraged tylenol in the morning before starting his activity 06/07/2025 Skin tear of right upper extremity (ICD-10 - S41.111A) No evidence of infection at this time. Cleanse daily with warm soapy water and pat dry, dry dressing. Allow Steri-Strips to fall off naturally. 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 Start cephalexin. Tdap is up-to-date. Hold off on imaging since his pain is really minimal and has good range of motion but he will let me know if this changes and we will obtain x-rays at that time. Activity as tolerated. Encouraged elevation and cool compresses for the next 24 to 48 hours. 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 Last A1C was excellent but likely artificially low due to recent blood loss...recommend repeat again around September. 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 No medication changes recommended unless indicated on labs today. Eye exam UTD. Tolerating statin therapy. On ARB previously but stopped due to cardiovascular management issues...Creatinine /GFR normal on most recent labs, chronic stable microalbuminuria 06/25/2025 Hypertension, essential (ICD-10 - I10) cardiology following as well, mildly elevated today but normal last several visits. monitor 05/17/2025 Abrasion of lower extremity, unspecified laterality, initial encounter (ICD-10 - S80.819A) 12/04/2024 Paroxysmal atrial fibrillation (ICD-10 - I48.0) Xarelto changed to Eliquis because of bleeding issues, sotalol 12/04/2024 Iron deficiency anemia, unspecified iron deficiency anemia type (ICD-10 - D50.9) stop oral replacement, continue IV replacement as needed 06/25/2025 Paroxysmal atrial fibrillation (ICD-10 - I48.0) per cardiology, regular on exam today 02/20/2025 Paroxysmal atrial fibrillation (ICD-10 - I48.0) Sotalol, s/p SHAYNE ligation 08/15/2024 Iron deficiency anemia, unspecified iron deficiency anemia type (ICD-10 - D50.9) continue oral replacement, blood counts are stable but not improving, has ongoing specialty FU 08/15/2024 Coronary artery disease involving [place] coronary artery of [place] heart with angina pectoris (ICD-10 - I25.119) 02/20/2025 Iron deficiency anemia, unspecified iron deficiency anemia type (ICD-10 - D50.9) continue hematology FU but hopefully discontinuation of anticoagulants will resolve this issue 06/25/2025 Coronary artery disease involving [place] coronary artery of [place] heart without angina pectoris (ICD-10 - I25.10) 12/04/2024 Other injury of unspecified body region, initial encounter (ICD-10 - T14.8XXA) 12/04/2024 Local infection of the skin and subcutaneous tissue, unspecified (ICD-10 - L08.9) 06/25/2025 Postherpetic neuralgia (ICD-10 - B02.29) stable 08/15/2024 Immunization(s) administered (ICD-10 - Z23) 06/25/2025 BMI 27.0-27.9,adult (ICD-10 - Z68.27) stable [...] symptoms (ICD-10 - N40.0) Plan Of Treatment Pending Test Test Name Order Date X-Lipid Profile 10/21/2006 X-Lipid Profile 04/27/2007 N-Glycohemoglobin (HbA1C) 04/27/2007 N-CMP 04/27/2007 N-CMP 10/21/2006 N-HbA1C 10/21/2006 Echocardiogram 12/22/2014 C-CBC 03/17/2017 C-CBC 12/28/2017 C-CBC 07/17/2019 C-CBC 07/24/2021 C-CBC 06/20/2012 C-CBC 08/05/2017 C-CBC 04/19/2020 C-BASIC METABOLIC 01/18/2019 C-CMP 01/22/2021 C-CMP 07/24/2021 C-CMP 07/17/2019 C-CMP 08/21/2016 C-CMP 04/19/2020 C-CMP 08/05/2017 C-CMP 04/29/2011 C-CMP 06/20/2012 C-CMP 06/01/2013 C-CMP 12/28/2017 C-CMP 11/11/2016 C-CMP 12/01/2012 C-CMP 11/27/2011 C-CMP 03/17/2017 C-CMP 08/15/2009 C-MICROALBUMIN 12/01/2012 C-MICROALBUMIN 06/01/2013 C-LIPID PANEL 06/01/2013 C-LIPID PANEL 12/28/2017 C-LIPID PANEL 11/11/2016 C-LIPID PANEL 06/20/2012 C-LIPID PANEL 04/29/2011 C-LIPID PANEL 08/05/2017 C-LIPID PANEL 04/19/2020 C-LIPID PANEL 08/21/2016 C-LIPID PANEL 07/17/2019 C-LIPID PANEL 07/24/2021 C-LIPID PANEL 01/22/2021 C-LIPID PANEL 12/01/2012 C-LIPID PANEL 11/27/2011 C-LIPID PANEL 08/15/2009 C-TSH 03/17/2017 C-TSH 04/22/2020 C-PSA 02/10/2008 C-PSA 06/01/2013 C-CPK 03/17/2017 C-HGBA1C 11/27/2011 C-HGBA1C 03/17/2017 C-HGBA1C 12/01/2012 C-HGBA1C 06/01/2013 C-HGBA1C 12/28/2017 C-HGBA1C 08/05/2017 C-HGBA1C 11/11/2016 C-HGBA1C 06/20/2012 C-HGBA1C 04/29/2011 C-HGBA1C 04/19/2020 C-HGBA1C 08/15/2009 C-HGBA1C 08/21/2016 C-HGBA1C 07/24/2021 C-HGBA1C 01/18/2019 C-HGBA1C 07/17/2019 H-DIARRHEA PANEL PCR 03/17/2017 M-Hemoglobin and Hematocrit 07/05/2024 M-Upper Respiratory Panel, PCR M-Diarrhea Panel, PCR 03/08/2023 M-Iron and TIBC 11/13/2024 M-Microalb/Creat Ratio, Randm Ur 025 Physical Therapy Eval and Treat 02/09/20 Physical Therapy Eval and Treat 10/11/20 23 Future Test Test Name Order Date C-CMP 09/12/2014 C-LIPID PANEL 09/12/2014 C-HGBA1C 09/12/2014 C-CMP 12/18/2014 C-LIPID PANEL 12/18/2014 C-HGBA1C 12/18/2014 C-CMP 01/28/2015 C-LIPID PANEL 01/28/2015 C-HGBA1C 01/28/2015 C-CMP 05/03/2015 C-LIPID PANEL 05/03/2015 C-HGBA1C 05/03/2015 C-CBC 04/06/2016 C-CMP 04/06/2016 C-LIPID PANEL 04/06/2016 C-HGBA1C 04/06/2016 C-CMP 03/14/2018 C-LIPID PANEL 03/14/2018 C-HGBA1C 03/14/2018 C-CMP 09/19/2018 C-LIPID PANEL 09/19/2018 C-HGBA1C 09/19/2018 C-CMP 10/20/2019 C-LIPID PANEL 10/20/2019 C-HGBA1C 10/20/2019 Next Appt Details Provider Name:Daniella Allen ce, 10/25/2025 09:00:00 AM, [address], [address], [place], [address], Insurance Providers Payer Name Payer Address Payer Phone Subscriber Number Group Number Insured Name Patient Relationship to Insured Coverage Start Date Coverage End Date [place] [address] [place] [address] [id number] Yojana Chaudhari Self - patient is the insured [employer] [address] [place] [address] [address] [place] [address] ACL Yojana Chaudhari Self - patient is the insured Medications Administered Medication Instructions Date of Administration Dosage Notes Dexamethasone 4mg Injection 11/02/2022 4 mg Dexamethasone 4mg Injection 03/04/2023 4 mg Dexamethasone 4mg Injection 10/11/2023 4 mL Dexamethasone 4mg Injection 01/06/2024 4 mg Kenalog 03/08/2015 1 mL Medical (General) History Medical History History ICD Code heart disease degenerative disc disease hypercholestrolemia hypertension type II diabetes Pacemaker cardiac stents x5 Post herpetic neuralgia negative Cologuard testing F ebruary 2016 - positive in 2019 with c-scope showing adenoma times 5. afib Shingles PAD with lower extremity angioplasty 202 4 Gastric ulcer Surgical History Surgery Date(Month/Year) Cardiac stents x3 Back surgery x2 cardiac stents x5 01/17/2015 pacemaker 01/18/2015 stents x 2 06/2019 Stents placed in both legs 05/18/24 EGD 06/28/24 EGD/Colonoscopy 11/2024 SHAYNE ligation at 01/2025 Hospitalization History Reason Date(Month/Year) [facility] - anemia, GIB 06/27-06/28/24 3 stents (02/21/2015) 02/19/2015 above surgeries 5 stents and pacemaker 12/2014 [facility]- Heart Cath 05/18/24-05/19/24
--- OUTSIDE RECORDS SUMMARY | 2025-07-10 08:58 | XMS_ITS | Clinical Summary ---
Author Organization [facility] Address [address] [place] [address] Care Team Providers Care Patient Access Name Role Phone Daniella Sánchez WELL BLOWER Primary Care Provider [phone]- [phone] Allergies Active Allergy Reactions Criticality Noted Date Comments Amoxicillin Hives Medium 12/22/2024 Empagliflozin Unknown - Patient st ates they do not know rxn details Low 12/22/2024 Semaglutide(0.25 Or 0.5mg-Dos) Unknown - Patient states they do not know rxn details Low 12/22/2024 Medications clopidogrel (Plavix) 75 MG tablet Take 1 tablet (75 mg) by mouth in the morning. Active dapagliflozin (Farxiga) 10 MG tablet Take 1 tablet (10 mg) by mouth in the morning. Active furosemide (Lasix) 20 MG tablet Take 1 tablet (20 mg) by mouth in the morning. Active ferrous gluconate (Fergon) 324 (38 Fe) MG tablet Take 1 tablet (324 mg) by mouth 1 (one) time each day with breakfast. Active isosorbide mononitrate ER (Imdur) 30 MG 24 hr tablet Take 1 tablet (30 mg) by mouth in the morning. Do not crush or chew. Active linaGLIPtin (Tradjenta) 5 MG tablet Take 1 tablet (5 mg) by mouth in the morning. Active metFORMIN (Glucophage) 1000 MG tablet Take 1 tablet (1,000 mg) by mouth in the morning and 1 tablet (1,000 mg) in the evening. Take with meals. Active nitroglycerin (Nitrostat) 0.[address] 1 tablet (0.4 mg) under the tongue every 5 (five) minutes as needed for chest pain. Active pantoprazole (Protonix) 40 MG EC tablet Take 1 tablet (40 mg) by mouth daily before breakfast. Do not crush, chew, or split. Active rosuvastatin (Crestor) 10 MG tablet Take 1 tablet (10 mg) by mouth in the morning. Active sotalol (Betapace) 120 MG tablet Take 1 tablet (120 mg) by mouth in the morning and 1 tablet (120 mg) before bedtime. Active dilTIAZem ER (Tiazac) 360 MG 24 hr capsule Take 1 capsule (360 mg) by mouth in the morning. Active doxazosin (Cardura) 4 MG tablet Take 1 tablet (4 mg) by mouth nightly. Taking 1/2 pill nightly Active aspirin 81 MG EC tablet Take 1 tablet (81 mg) by mouth daily. 01/31/2025 07/30/20 25 Active Active Problems Problem Noted Date Diagnosed Date Presence of Watchman left atrial appendage closu re device 03/14/2025 Atrial flutter, unspecified type 01/31/2025 Atrial flutter 01/01/2025 Shortness of breath 12/22/2024 Unsteady 12/22/2024 CAD (coronary artery disease) 12/22/2024 Chronic atrial fibrillation 12/22/2024 PVD (peripheral vascular disease) 12/22/2024 Diabetes mellitus type II, non insulin dependent 12/22/2024 Essential hypertension 12/22/2024 Pacemaker 12/22/2024 Overview (12/22/2024): Guidry Encounters Date Type Department Care Team Description 06/29/2025 Telephone [facility] [address] [address] Ольга Ortiz PA from Last 3 Months Family History Medical History Relation Name Comments Diabetes type I Father Diabetes type I Mother Relation Name Status Comments Father Mother Social History Tobacco Use Types Packs/Day Years Used Date Smoking Tobacco: Never Smokeless Tobacco: Current Chew Tobacco Cessation:Ready to Q uit: Not Asked; Counseling Given: Not Answered Alcohol Use Standard Drinks/Week Comments Never 0 (1 standard drink = 0.6 oz pur e alcohol) PHQ-2 Answer Date Recorded Patient Health Questionnaire-2 Score 0 03/14/2025 PHQ-9 Answer Date Recorded Patient Health Questionnaire-9 Score 0 03/14/2025 Sex and Gender Information Value Date Recorded Sex Assigned at Not on file Legal Sex Male 6:52 PM EDT Gender Identity Not on file Sexual Orientation Not on file Last Filed Vital Signs Vital Sign Reading Time Taken Comments Blood Pressure 161/85 03/14/2025 9:18 AM EDT Pulse 60 01/31/2025 2:15 PM EDT Temperature 36.5 C (97.7 F) 01/31/2025 9:35 AM EDT Respiratory Rate 18 01/31/2025 2:15 PM EDT Oxygen Saturation 95% 01/31/2025 2:15 PM EDT Inhaled Oxygen Concentration - - Weight 82.1 kg (181 lb) 03/14/2025 9:10 AM EDT Height 167.6 cm (5' 6 ) 03/14/2025 9:10 AM EDT Body Mass Index 29.21 03/14/2025 9:10 AM EDT Plan of Treatment Health Maintenance Due Date Last Done Comments [facility]-Diabetes: Hemoglobin A1C 1945 [facility]-Medicare Annual Wellness (AWV) 1945 [facility]-Infant/Child/Adol SDOH Screenings 1945 Diabetes: Dental Exam 1955 [facility]- SDOH Screenings 1963 [facility]-Adult SDOH Screenings 1963 [facility]-Zoster Vaccines (1 of 2) 1995 [facility]-RSV Vaccine: 60+ Years or (1 - 1-dose 75+ series) 2020 [id number] Vaccine (2023- season) 2024 09/22/2021, 01/21/2021, 12/24/2020 [facility]-Influenza Vaccine (#1) 07/23/202508/15, 08/25/2023, 09/04/2022, Additional history exists [facility]-Depression Screening 03/14/2026 03/14/2025, 02/21 [facility]-DTaP,Tdap,and Td Vaccines (2 - Td or Tdap) 08/07/2033 08/07/2023 [facility]-Pneumococcal Vaccine: 50+ Years Completed 08/15/2024, 01/18/2019, 08/06/2017 [facility]-Obesity Intervention Completed 025, 01/01/2025, 01/01/2025 HPV Vaccines Aged Out No longer eligi ble based on patient's age to complete this topic [facility]-HIB Vaccines Aged Out No longer e ligible based on patient's age to complete this topic [facility]-Hepatitis A Vaccines Aged Out No longer eligible based on patient's age to complete this topic [facility]-IPV Vaccines Aged Out No longer e ligible based on patient's age to complete this topic [facility]-Rotavirus Vaccines Aged Out No lo nger eligible based on patient's age to complete this topic Medical Devices Implanted Type Area Cnc Machinist 2Nd Shift Device Identifier Shelf Expiration Date Model / Serial / Lot Device Watchman Flx Pro Ailin Closure 27mm - [id number] Implanted:Qty : 1 on 01/31/2025 by Raman Machado MD at [facility] [employer][id number] 11/29/2027 [id number] / / [id number] Device Watchman Flx Pro Procedure - [id number] Implanted:Qty : 1 on 01/31/2025 by Raman Machado MD at [facility] [id number] / / Insurance MEDICARE Advance Directives * Full Code (Latest Code Status on File) Date Activated Date Inactivated Comments 01/31/2025 9:55 AM 01/31/2025 7:38 PM Question Answer Comments Patient has decision-making capacity? Yes Care Teams Patient Access Relationship Specialty Start Date End Date Daniella Sánchez APRN [address] [place] [address] PCP - General 11/22/22
--- OUTSIDE RECORDS SUMMARY | 2025-07-10 08:59 | XMS_ITS | Clinical Summary ---
Author Organization [facility] [place] [address] Care Team Providers Care Cover Making Machine Operator Name Role Phone Unavailable Primary Care Provider Unavailabl e Social History Tobacco Use Types Packs/Day Years Used Date Smoking Tobacco: Never Assessed Sex and Gender Information Value Date Recorded Sex Assigned at Not on file Legal Sex Male 7:59 PM EDT Gender Identity Not on file Sexual Orientation Not on file Plan of Treatment Health Maintenance Due Date Last Done Comments Annual Wellness Exam 1948 Hepatitis C Screening 1963 DTaP/TDaP/Td (1 - Tdap) 1964 Pneumococcal Vaccine 50+ (1 of 1 - PCV) 1995 Zoster (1 of 2) 1995 RSV or 60+ (1 - 1-d ose 75+ series) 2020 COVID-19 Vaccine (2023-2 5 season) 2024 Influenza Vaccine (#1) 2025 Hepatitis B Vaccine Aged Out No longe r eligible based on patient's age to complete this topic Meningococcal B Vaccine Aged Out No l onger eligible based on patient's age to complete this topic
--- OUTSIDE RECORDS SUMMARY | 2025-07-10 08:59 | XMS_ITS | Encounter Summary ---
Author Organization [facility] Address [address] [place] [address] Care Team Providers Care Worsted Winder Name Role Phone Daniella Sánchez SUPERVISOR OPERATIONS Primary Care Provider [phone]- [phone] Encounter Details Date Type Department Care Team (Late st Contact Info) Description 06/29/2025 Telephone [facility] [place] [address] [place] [address] Ольга Ortiz PA [address] [place] [address] Social History Tobacco Use Types Packs/Day Years Used Date Smoking Tobacco: Never Smokeless Tobacco: Current Chew Alcohol Use Standard Drinks/Week Comments Never 0 [...] on file Sexual Orientation Not on file documented as of this encounter Miscellaneous Notes * Telephone Encounter - Beatriz Ling - 06/29/2025 1:16 PM EDT Spoke to Jeannine and explained the only CT we need is the one we have already done and six months s/pwatchman he could discontinue the plavix and remain on baby aspirin. She understood and will let usknow if they need anything else. * Telephone Encounter - Therese Arauz - 06/29/2025 12:27 PM EDT Clinical Concern/Question Reason for Call: Please call patient to discuss if patients needs another CT? Best contact number: Other: [phone] Optimal time of day to reach caller: ANYTIME Additional comments/information from caller: None Note: Please do not reply to this message. Follow-up communication and further actions as a result of this message need to be communicated with the patient directly, if the patient is not active onMyChart. If the patient is active on MyChart, they will receive notification of the communication/outcome via VideoAvatars. documented in this encounter Plan of Treatment Not on file documented as of this encounter Visit Diagnoses Not on filedocumented in this encounter Additional Health Concerns Assessment Noted Time PHQ-9 Depression Total Score: 0 03/14/20 25 9:06 AM EDT A fall risk assessment has been complete d for the patient 03/14/2025 9:06 AM EDT A Body Mass Index follow-up plan has been documented for the patient 03/14/2025 9:55 AM EDT documented as of this encounter Care Teams Worsted Winder Relationship Specialty Start Date End Date Daniella Sánchez APRN [address] [place] [address] PCP - General 11/22/22 documented as of this encounter
--- NOTE | 2025-07-10 09:15 | CT_ITS ---
FINAL REPORT TECHNIQUE: Multiple axial CT sections were performed from the foramen magnum to the vertex. Coronal reformatted images were also obtained. Precontrast and postcontrast injection images were obtained. This study was performed with technique to keep radiation doses as low as reasonably achievable, (ALARA). Individualized dose reduction techniques using automated exposure control or adjustment of mA and/or kV according to the patient size were employed. CLINICAL HISTORY: dizziness COMPARISON: 05/03/2024 FINDINGS: There is mild diffuse atrophy. There is mild patchy decreased attenuation in the deep white matter, probably due to chronic ischemia. Physiologic calcification is seen in the basal ganglia. The ventricles are normal in size. There is no evidence of hemorrhage. No masses are identified. No extra-axial fluid collection is seen. No osseous abnormality is seen on the bone window images. There is minimal mucoperiosteal thickening in the maxillary sinuses. Postcontrast images demonstrate no abnormal enhancement. IMPRESSION: Atrophy and chronic ischemia without acute intracranial abnormality. Reviewed, Interpreted and Dictated by Fabrice Montez MD Transcribed by Susana Her Authenticated and [facility]
--- NOTE | 2025-07-10 10:15 | CA_ITS ---
FINAL REPORT TECHNIQUE: Beatty scale, color and spectral doppler images of the bilateral carotid arteries were obtained. CLINICAL HISTORY: dizziness COMPARISON: None FINDINGS: Peak systolic velocity in the right internal carotid artery is 100 cm/sec. The internal carotid to common carotid artery ratio is 1.74. There is no significant carotid artery stenosis and moderate plaque formation. The right vertebral artery is normal in direction. Peak systolic velocity in the left internal carotid artery is 69 cm/sec. The internal carotid to common carotid artery ratio is 1.55. There is no significant carotid artery stenosis and moderate plaque formation. The left vertebral artery is normal in direction. IMPRESSION: No ultrasound evidence of hemodynamically significant carotid artery stenosis. Normal peak systolic velocities and normal internal to common carotid artery ratios bilaterally. Moderate plaque is present in the carotid arteries bilaterally. Reviewed, Interpreted and Dictated by Fabrice Montez MD Transcribed by Sue Boucher Authenticated and [facility]
== END 2025-07-10 23:59 | disposition home or self-care (01) ==
LOC: RAD 08:36
PROVIDERS: PCP Nurse Practitioner Family; Visit Provider Physician Assistant
DX: I65.23 Occlusion and stenosis of bilateral carotid arteries (principal); G31.9 Degenerative disease of nervous system, unspecified; I67.82 Cerebral ischemia; D50.9 Iron deficiency anemia, unspecified; I73.9 Peripheral vascular disease, unspecified; I25.10 Atherosclerotic heart disease of native coronary artery without angina pectoris; I10 Essential (primary) hypertension; E78.5 Hyperlipidemia, unspecified; E11.9 Type 2 diabetes mellitus without complications; I48.91 Unspecified atrial fibrillation; R93.89 Abnormal findings on diagnostic imaging of other specified body structures; Z95.0 Presence of cardiac pacemaker
CPT/HCPCS: 70470; 93880; Q9967

== ENCOUNTER 2025-07-11 09:34 | Outpatient (RCR) | payer MEDICARE, SELFPAY ==
--- NOTE | 2025-07-11 10:34 | HMH.PTOPEV ---
PT Outpatient Evaluation Rehab PT Outpatient Evaluation Start: 07/11/25 09:44 Freq: Status: Active Protocol: Document 07/11/25 10:21 PHOAMANDA (Rec: 07/11/25 10:34 PHORNE [id number]) E-signed By Ethan Maldonado, PT Outpatient Therapy Subjective History Subjective History This is the initial PT eval for Yojana Chaudhari, 80 yowm who presents with c/o feeling off-balance and lightheaded with standing or walking x ~ 1 yr. He reports no c/o when sitting or laying in any position, except in standing. He reports no c/o vertigo sensations at all and reports his symptoms are consistently present in standing and last most of the time until he returns to sitting. He had CT scan of the head which shows expected age related changes and B carotid artery US which shows no appreciable stenosis. He has hx of CAD with 15 stents, HTN controlled with medication, pacemaker, and significant B hearing loss requiring hearing aids. Pt does report MD adjusted his BP meds ~ 2 wks ago which has seemed to help his symptoms of lightheadedness. Chief Complaint Other Level of pain today 0 (0-10) Pain scale - at its 0 worst (0-10) Dynamic Gait Index Test Protocol Gait Level Surface Mild Impairment Query Text: Instructions: Walk at your normal speed from here to the next nikky (20'). Grading: Nikky the lowest category that applies. Change in Gait Speed Mild Impairment Query Text: Instructions: Begin walking at your normal pace (for 5') , when I tell you go , walk as fast as you can (for 5'). When I tell you slow , walk as slowly as you can ( for 5'). Grading: Nikky the lowest category that applies. Gait with Horizontal Mild Impairment Head Turns Query Text: Instructions: Begin walking at your normal pace. When I tell you to look right , keep walking straight, but turn you head to the right. Keep looking to the right unit I tell you look left , then keep walking straight and turn your head to the left. Keep your head to the left until I tell you look straight , then keep walking straight, but return you head to the center. Grading: Nikky the lowest category that applies. Gait with Vertical Mild Impairment Head Turns Query Text: Instructions: Begin walking at your normal pace. When I tell you to look up , keep walking staight, but tip your head up. Keep looking up until I tell you to look down , then keep walking straight and tip your head down. Keep your head down until I tell you look straight , then keep walking straight, but return your head to the center. Grading: Nikky the lowest category that applies. Gait and Pivot Turn Mild Impairment Query Text: Instructions: Begin walking at your normal pace. When I tell you turn and stop , turn as quickly as you can to face the opposite direction and stop. Grading: Nikky the lowest category that applies. Step Over Obstacle Mild Impairment Query Text: Instructions: Begin walking at your normal speed. When you come to the shoebox, step over it, not around it and keep walking. Grading: Nikky the lowest category that applies. Step Around Mild Impairment Obstacles Query Text: Instructions: Begin walking at normal speed. When you come to the first cone (about 6' away) , walk around the right side of it. When you come to the second cone (6' past first cone), walk around it to the left. Grading: Nikky the lowest category that applies. Steps Moderate Impairment Query Text: Instructions: Walk up these stairs as you would at home. At the top, turn around and walk down . Grading: Nikky the lowest category that applies. Scoring Dynamic Gait Index 15 Score Miscellaneous Dx PT Eval Objective Objective Occulomotor testing: Age appropriate presence of mild saccadic movements during smooth pursuit, VOR cancellation normal, Head Shake Nystagmus Normal Visual tracking between objects normal. [place]-Hallpike and Horizontal Roll testing show no nystagmus or symptoms. Rhomberg test: Pt fails all levels and is mildly unstable in standing with feet together and eyes open. BP (tested manually): Sitting = 130/74 mmHg, Standing = 140/78 mmHg Outpatient Therapy Assessment Impairments Problems/ Impaired Walking,Impaired Standing,Impaired Balance, Impairmments Impaired DGI Score,Impaired Self Care/Self Management Prognosis Rehab Potential Good Comment Signs and symptoms consistent with decreased static and dynamic standing balance with likely associated cardiac deficits resulting in dizziness. No signs or symptoms of vertigo noted at this time. Skilled therapy is indicated in order to improve static and dynamic standing balance, however pt does not wish to pursue this treatment at this time. Clinical Impression Consistent with No Diagnosis Consistent with Most Likely: Additional details: R26.81: Unsteadiness on feet R26.89: Other abnormalities of gait and mobility Outpatient Therapy Plan of Care Treatment Plan May Include Eval/Re-Eval Yes Frequency Times per week 0 Duration Number of Weeks 0 Addendums This patient is a No candidate for social or vocational rehab ? Patient/Guardian Yes verbally acknowledges understanding of treatment program and consents to further treatment? Patient/Guardian Yes verbally acknowledges understanding of diagnosis, prognosis and goals for treatment? Eval Complexity PT Charges 62430 - High Complexity Shoulder/Elbow Eval Shoulder Objective Measurements Elbow Objective Measurements PHYSICIAN CERTIFICATION: I certify the specified therapy services for Yojana Chaudhari are required, authorized, and reviewed every 30 days.
== END 2025-07-11 23:59 | disposition home or self-care (01) ==
LOC: PT 09:34
PROVIDERS: PCP Nurse Practitioner Family; Visit Provider Nurse Practitioner
DX: R42 Dizziness and giddiness (principal)
CPT/HCPCS: 97163

== ENCOUNTER 2025-08-24 08:34 | Outpatient (CLI) | payer MEDICARE, SELFPAY ==
--- OUTSIDE RECORDS SUMMARY | 2025-06-25 04:30 | XMS_ITS ---
Author Organization [facility] Address [address] [place] [address] Care Team Providers Care Attending Ambulatory Care Name Role Phone Jl Berumen Primary Care Provider [phone] Daniella Sáncehz [phone] Allergies Allergen (clinical drug ingredient) Drug/Non Drug Allergy documented on EMR Reaction Allergy Type Onset Date Status amoxicillin Amoxicillin hives Drug Allergy Act beth pregabalin Lyrica vertigo Drug Allergy Active Results Component Value Reference Range Notes IRON, TIBC AND FERRITIN JENNIFER Dominique (5616) Reviewed date:06/27/2025 01:57:21 PM Interpretation: Performing Lab:[facility] [id number] [facility] [employer], [employer] (P)[id number] Claude Banks Notes/Report: NON-FASTING; NON-FASTING; NON-FASTING; NON-FASTING; NON-FAST FASTING:YES FASTING: YES IRON, TOTAL 138 50-180 mcg/dL IRON BINDING CAPACITY 406 250-425 mcg/dL (edie c) % SATURATION 34 20-48 % (calc) FERRITIN 16 24-380 ng/mL LIPID PANEL, STANDARD (7600) Reviewed date:06/27/2025 01:57:21 PM Interpretation: Performing Lab:[facility] [id number] Derma [facility]ien[employer]estel Bl[employer], [facility] [id number] Claude Banks Notes/Report: NON-FASTING; NON-FASTING; NON-FASTING; NON-FASTING; NON-FAST FASTING:YES FASTING: YES CHOLESTEROL, TOTAL 147 <200 mg/dL HDL CHOLESTEROL 44 > OR = 40 mg/dL TRIGLYCERIDES 115 <150 mg/dL LDL-CHOLESTEROL 82 Reference range: <100 Desirable range <100 mg/dL for primary prevention; <70 mg/dL for patients with CHD or diabetic patients with > or = 2 CHD risk factors. LDL-C is now calculated using the [place] calculation, which is a validated novel method providing better accuracy than the Friedewald equation in the estimation of LDL-C. Josiah SS et al. ROME. 2013;310(14): 2532-5207 (http://education.Salonmeister.Maestro/faq/IKV426) CHOL/HDLC RATIO 3.3 <5.0 (calc) NON HDL CHOLESTEROL 103 <130 mg/dL (calc) For patients with diabetes plus 1 major ASCVD risk factor, treating to a non-HDL-C goal of <100 mg/dL (LDL-C of <70 mg/dL) is considered a therapeutic option. COMPREHENSIVE METABOLIC JENNIFER Dominique ([id number]) Reviewed date:06/27/2025 01:57:21 PM Interpretation: Performing Lab:CARL, [facility] [id number] [facility] [id number] Claude Banks Notes/Report: NON-FASTING; NON-FASTING; NON-FASTING; NON-FASTING; NON-FAST FASTING:YES FASTING: YES GLUCOSE 132 65-99 mg/dL Fasting reference interval For someone without known diabetes, a glucose value >125 mg/dL indicates that they may have diabetes and this should be confirmed with a follow-up test. UREA NITROGEN (BUN) 21 7-25 mg/dL CREATININE 0.73 0.70-1.22 mg/dL EGFR 92 > OR = 60 mL/min/1.73m2 BUN/CREATININE RATIO SEE NOTE: 6-22 (calc) Not Reported: BUN and Creatinine are within reference range. SODIUM 140 135-146 mmol/L POTASSIUM 4.0 3.5-5.3 mmol/L CHLORIDE 104 98-110 mmol/L CARBON DIOXIDE 28 20-32 mmol/L CALCIUM 9.5 8.6-10.3 mg/dL PROTEIN, TOTAL 6.8 6.1-8.1 g/dL ALBUMIN 4.4 3.6-5.1 g/dL GLOBULIN 2.4 1.9-3.7 g/dL (calc) ALBUMIN/GLOBULIN RATIO 1.8 1.0-2.5 (calc) BILIRUBIN, TOTAL 0.8 0.2-1.2 mg/dL ALKALINE PHOSPHATASE 60 35-144 U/L AST 14 10-35 U/L ALT 13 9-46 U/L CBC (INCLUDES DIFF/PLT) ([id number]) Reviewed date:06/27/2025 01:57:21 PM Interpretation: Performing Lab:CARL [facility] [id number] [facility], [facility] [id number] Claude Banks Notes/Report: NON-FASTING; NON-FASTING; NON-FASTING; NON-FASTING; NON-FAST FASTING:YES FASTING: YES WHITE BLOOD CELL COUNT 6.8 3.8-10.8 Thousand/ uL RED BLOOD CELL COUNT 5.33 4.20-5.80 Million/uL HEMOGLOBIN 15.0 13.2-17.1 g/dL HEMATOCRIT 48.9 38.5-50.0 % MCV 91.7 80.0-100.0 fL MCH 28.1 27.0-33.0 pg MCHC 30.7 32.0-36.0 g/dL For adults, a slight decrease in the calculated MCHC value (in the range of 30 to 32 g/dL) is most likely not clinically significant; however, it should be interpreted with caution in correlation with other red cell parameters and the patient's clinical condition. RDW 14.9 11.0-15.0 % PLATELET COUNT 236 140-400 Thousand/uL MPV 10.3 7.5-12.5 fL ABSOLUTE NEUTROPHILS 4039 8724-5635 cells/uL ABSOLUTE LYMPHOCYTES 2814 340-4390 cells/uL ABSOLUTE MONOCYTES 680 200-950 cells/uL ABSOLUTE EOSINOPHILS 510 15-500 cells/uL ABSOLUTE BASOPHILS 41 0-200 cells/uL NEUTROPHILS 59.4 LYMPHOCYTES 22.5 MONOCYTES 10.0 EOSINOPHILS 7.5 BASOPHILS 0.6 HEMOGLOBIN A1c (496) Reviewed date:06/27/2025 01:57:21 PM Interpretation: Performing Lab:[facility] [id number] [facility], [facility] [id number] Claude Banks Notes/Report: NON-FASTING; NON-FASTING; NON-FASTING; NON-FASTING; NON-FAST FASTING:YES FASTING: YES HEMOGLOBIN A1c 7.3 <5.7 % For someone without known diabetes, a hemoglobin A1c value of 6.5% or greater indicates that they may have diabetes and this should be confirmed with a follow-up test. For someone with known diabetes, a value <7% indicates that their diabetes is well controlled and a value greater than or equal to 7% indicates suboptimal control. A1c targets should be individualized based on duration of diabetes, age, comorbid conditions, and other considerations. Currently, no consensus exists regarding use of hemoglobin A1c for diagnosis of diabetes for children. VITAMIN B12 (927) Reviewed date:06/27/2025 01:57:21 PM Interpretation: Performing Lab:CARL, [facility] [id number] [facility]a Scien[facility]el [facility], BirdbackNlhgAS[address] Claude aBnks Notes/Report: NON-FASTING; NON-FASTING; NON-FASTING; NON-FASTING; NON-FAST FASTING:YES FASTING: YES VITAMIN B12 408 053-9818 pg/mL TSH W/REFLEX TO FT4 (37782) Reviewed date:06/27/2025 01:57:21 PM Interpretation: Performing Lab:CARL [facility] [id number] [address], [employer] (P)[id number] Claude Banks Notes/Report: NON-FASTING; NON-FASTING; NON-FASTING; NON-FASTING; NON-FAST FASTING:YES FASTING: YES TSH W/REFLEX TO FT4 1.31 0.40-4.50 mIU/L REASON FOR VISIT 4 month check up and AWV, having some dizziness when he stands up, needs refills on Farxiga and Doxazosin Medications Medication SIG (Take, Route, Frequency, Duration) Notes Start Date End Date Status metFORMIN HCl ER 500 MG TAKE 2 TABLETS BY MOUTH TWICE DAILY; Duration: 90 Active Mupirocin 2 % 1 application Externally Twice a day; Duration: 5 days 05/17/2025 Active Rosuvastatin Calcium 10 MG 1 tab(s) orally once a day; Duration: 90 days Active Tradjenta 5 MG 1 tab(s) orally once a day; Duration: 90 days Active Furosemide 20 MG 1 tab(s) orally once a day; Duration: 90 days 08/15/2024 Active Sotalol HCl (AF) 120 MG 1 tab(s) orally 2 times a day Active Clopidogrel Bisulfate 75 MG 1 tab(s) orally once a day; Duration: 30 day(s) Active Nitroglycerin 0.4 MG 1 tab(s) sublingually every 5 minutes prn; Duration: 30 days Active Pantoprazole Sodium 40 MG 1 tab(s) orally once a day; Duration: 30 days Active dilTIAZem HCl ER 360 MG/24 HOURS 1 CAP(S) ORALLY ONCE A DAY *Please review and pick correct strength-formulati on from iPipeline options. If intended option is not shown, discontinue and re-order from Quick Search* Active ACCU-CHEK RIO PLUS TEST STRIPS FOR DIABETIC TESTING ONCE A DAY; Duration: 90 DAYS E11.9 *Please review for potential replacement for e-prescription and drug interaction check* 07/11/2018 Active ACCU CHECK SOFT CLICK LANCETS DIRECTED ONCE A DAY; Duration: 90 DAYS E11.9 *Please review for potential replacement for e-prescription and drug interaction check* 07/11/2018 Active Aspirin Low Dose 81 MG 1 tab(s) orally once a day Active Isosorbide Mononitrate ER 30 MG 1 tab(s) orally once a day (in the morning) Active ACCU-CHEK RIO PLUS MONITORING KIT USE TO CHECK BLOOD SUGAR ONCE DAILY E11.9 *Please review for potential replacement for e-prescription and drug interaction check* 07/11/2018 Active Farxiga 10 MG 1 tablet Orally Once a day; Duration: 90 days Active Doxazosin Mesylate 4 MG 1/2 tab(s) orally at bedtime; Duration: 90 days Active Immunizations Vaccine Route Administration Date Status Comme nts Arexvy IM Intramuscular 06/25/2025 Administered Problems Problem Type SNOMED Code ICD Code Onset Dates Problem Status W/U Status Risk Notes Problem History of iron deficiency anemia (065481138) History of iron deficiency anemia (Z86.2) Active confirmed Problem Benign prostatic hypertrophy without outflow obstruction (106028340) Benign prostatic hyperplasia without lower urinary tract symptoms (N40.0) Active confirmed Vital Signs Temperature 97.6 degrees Fahrenheit 06/25/20 25 Heart Rate 78 /min 06/25/2025 Blood pressure systolic 144 mm Hg 06/25/20 25 Blood pressure diastolic 72 mm Hg 025 Height 5 ft 9 in in 06/25/2025 Weight 187.2 lbs 06/25/2025 BMI 27.64 kg/m2 06/25/2025 Encounters Encounter Location Date Provider Diagnosis [facility] [address] [place] [address] 06/25/2025 Dainella Sánchez 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 ; Medicare annual wellness visit, subsequent Z00.00 ; Hypertension, essential I10 ; Paroxysmal atrial fibrillation I48.0 ; 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 Would be quite hesitant to put him on a GLP-1 inhibitor at this point with his underlying issues with his GI tract in the past year or so. Certainly could consider it in the future if needed for glucose control. 06/25/2025 Medicare annual wellness visit, subsequent (ICD-10 - Z00.00) UTD on preventive exams for age/conditions Continue cardiology FU No medication changes recommended unless indicated on lab results 06/25/2025 Hypertension, essential (ICD-10 - I10) cardiology following as well, mildly elevated today but normal last several visits. 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 Will repeat labs today to make sure he is not becoming anemic again. We have discussed neurology referral in the past for possible Parkinson's-like syndrome but he had declined. Might consider that in the future. Could also be medication side effect 06/25/2025 Encounter for immunization (ICD-10 - Z23) 06/25/2025 Benign prostatic hyperplasia without lower urinary tract symptoms (ICD-10 - N40.0) Plan Of Treatment Medication Medication Name Sig Start Date Stop Date Notes Farxiga 10 MG 1 tablet Orally Once a day; Duration: 90 days Doxazosin Mesylate 4 MG 1/2 tab(s) orall y at bedtime; Duration: 90 days Treatment Notes Assessment Notes Medicare annual wellness visit, [facility] UTD on preventive exams for age/conditions Continue cardiology FU No medication changes recommended unless indicated on lab results Hypertension, essential cardiology follo wing as well, mildly elevated today but normal last several visits. monitor Postherpetic neuralgia stable Next Appt Details Follow Up: 4 Months, Reason: Provider Name:Daniella cruz, 10/25/2025 09:00:00 AM, [address] [facility] [address] [facility], [address], [place], [address], Progress Notes * Yojana MARQUEZ BDOB: [birth year] (80 yo M)Acc No.[id number]:06/25/2025 Progress Notes Patient: Yojana BURNS Provider: MIMA Meyer :1945 A ge:80 Y S ex:Male Date:06/25/2025 Address:[address] [place] [address], [place], [id number] Pcp:Jl Berumen Subjective: * Chief Complaints: * 1 . 4 month check up and AWV. 2. Having some dizziness when he stands up. 3. needs refills on Farxiga and Doxazosin. * HPI: g en: 80 yr old male presents today to FU on HTN, HLD, CAD, Type 2 DM. Medicare Wellness. Over the past year has had issues with REINALDO, requiring iron infusions and endoscopies. That has been stable more recently. SOA improved with treatment of REINALDO and his strength and balance improved as well until recently. Now when he stands he feels dizzy most of the time and has a tendency to fall backward. Followed by [facility] Cardiology group for management of PAF and pacemaker. Last eye exam in the past year. Checking glucose a few times per week and FSBS has been consistently 150-180. Still on metformin, SGLT2I and Tradjenta. On ARB and statin therapy as well. * ROS: F UNCTIONAL STATUS: ADLS I ndependent for all ADL/IADL. R ESPIRATORY: no S hortness of breath. n o C hest congestion.?no C ough. C ARDIOLOGY: Dizziness y es. n o C hest pain. n o P alpitations. n o L eg edema. C ONSTITUTIONAL: no L oss of appetite. n o F ever. W eakness?yes. D ERMATOLOGY: Reviewed, No Symptoms Reported: Y es. E NDOCRINOLOGY: Diabetes y es. E NT: no H earing loss. G ASTROENTEROLOGY: Reviewed, No Symptoms Reported: Y es. M USCULOSKELETAL: back pain y es, l ow, intermittent. N EUROLOGY: See HPI Y es. D izziness y es, w hile getting up from sitting postition. O PTHALMOLOGY: Reviewed, No Symptoms Reported: Y es. P SYCHOLOGY: Reviewed, No Symptoms Reported: Y es. U ROLOGY: Frequent urination y es, a fter taking diuretic in the morning. N octuria 2 x. * Medical History: H eart disease, Degenerative [...] and pacemaker 12/2014, 3 stents (02/21/2015) 02/19/2015, [facility]- Heart Cath 05/18/24-05/19/24, [facility] - anemia, GIB 06/27-06/28/24. * Family History: [...] *Please review and pick correct strength-formulation from Medispan options. If intended option is [...] A DAY FOR 90 DAYS , Taking Doxazosin Mesylate 4 MG Tablet 1/2 tab(s) orally at bedtime , Taking Furosemide 20 MG Tablet 1 tab(s) orally once a day , Taking metFORMIN HCl ER 500 MG Tablet Extended Release 24 Hour TAKE 2 TABLETS BY MOUTH TWICE DAILY , Taking Mupirocin 2 % Ointment 1 application Externally Twice a day , Taking Rosuvastatin Calcium 10 MG Tablet 1 tab(s) orally once a day , Medication List reviewed and reconciled with the patient * Allergies: L yrica: vertigo, Amoxicillin: hives. Objective: * Vitals: N urse: jl, Pain: 0, Temp: 97.6, RR: 18, HR: 78, BP: 144/72, Ht: 5 ft 9 in, Wt: 187.2, BMI:27.64. * Examination: G eneral Examination: General P leasant and Cooperative, NAD on RA,. Oral cavity: M oist membranes. Heart: R egular Rate and Rhythm,. Lungs: c lear to auscultation,. Abdomen: s oft, NT/ND, BS present. Neurologic Exam: A lert and oriented x 3, gait is unsteady and slightly forward leaning. Skin: w ithout acute rashes. Peripheral pulses: n ormal (2+) bilaterally. Extremities: n o clubbing, no edema,. neck s upple,, no thyromegaly,, no lymphadenopathy,. Psych N ormal Mood/Affect. diabetic foot exam V isual exam of foot performed: Y es. Assessment: * Assessment: 1. [facility] visit, subsequent - Z00.00 (Primary) 2 . T ype 2 diabetes mellitus with proteinuric diabetic nephropathy - E11.21 3 . H ypertension, essential - I10 4 . P aroxysmal atrial fibrillation - I48.0 5. C oronary artery disease involving anvik coronary artery of anvik heart without angina pectoris - I25.10 6 . P ostherpetic neuralgia - B02.29 7 . B MD 27.0-27.9,adult - Z68.27 8 . H istory of iron deficiency anemia - Z86.2 9 . P oor balance - R26.89 1 0. E ncounter for immunization - Z23 1 1. B enign prostatic hyperplasia without lower urinary tract symptoms - N40.0 Plan: * Treatment: 2. T ype 2 diabetes mellitus with proteinuric diabetic nephropathy Refill Farxiga Tablet, 10 MG, 1 tablet, Orally, Once a day, 90 days, 90 Tablet, Refills 3. ? L AB: IRON, TIBC AND FERRITIN PANEL (5616) (Collection Date & Time - 06/25/2025 09:27 AM) Value Reference Range I IZABELA, TOTAL 138 50-180 - mcg/dL * I IZABELA BINDING CAPACITY 406 250-425 - mcg/dL (c alc) * % SATURATION 34 20-48 - % (calc) * F ERRITIN 16 L 24-380 - ng/mL * Lyn Rollins Stella 06/27/2025 01: 55:40 PM EDT > pt and his informed. Faxed labs to Cardiology. ?LAB: LIPID PANEL, STANDARD (6540) (Collection Date & Time - 06/25/2025 09:27 AM)* Value Reference Range T RIGLYCERIDES 115 <150 - mg/dL * C HOLESTEROL, TOTAL 147 <200 - mg/dL * H DL CHOLESTEROL 44 > OR = 40 - mg/dL * L DL-CHOLESTEROL 82 - mg/dL (calc) * C HOL/HDLC RATIO 3.3 <5.0 - (calc) * N ON HDL CHOLESTEROL 103 <130 - mg/dL (calc) * Lyn Rollins Stella 06/27/2025 01: 55:40 PM EDT > pt and his informed. Faxed labs to Cardiology. ?LAB: COMPREHENSIVE METABOLIC PANEL (17183) (Collection Date & Time - 06/25/2025 09:27 AM)* Value Reference Range G LUCOSE 132 H 65-99 - mg/dL * U MICH NITROGEN (BUN) 21 7-25 - mg/dL * C REATININE 0.73 0.70-1.22 - mg/dL * B UN/CREATININE RATIO SEE NOTE: 6-22 - (calc) * S ODIUM 140 135-146 - mmol/L * P OTASSIUM 4.0 3.5-5.3 - mmol/L * C HLORIDE 104 98-110 - mmol/L * C ARBON DIOXIDE 28 20-32 - mmol/L * C ALCIUM 9.5 8.6-10.3 - mg/dL * P ROTEIN, TOTAL 6.8 6.1-8.1 - g/dL * A LBUMIN 4.4 3.6-5.1 - g/dL * G LOBULIN 2.4 1.9-3.7 - g/dL (calc ) * A LBUMIN/GLOBULIN RATIO 1.8 1.0-2.5 - (calc) * B ILIRUBIN, TOTAL 0.8 0.2-1.2 - mg/dL * A LKALINE PHOSPHATASE 60 35-144 - U/L * A ST 14 10-35 - U/L * A LT 13 9-46 - U/L * E GFR 92 > OR = 60 - mL/min/1 .73m2 * Lyn Rollins 06/27/2025 01: 55:40 PM EDT > pt and his informed. Faxed labs to Cardiology. ?LAB: CBC (INCLUDES DIFF/PLT) (1889) (Collection Date & Time - 06/25/2025 09:27 AM)* Value Reference Range W KAVITA BLOOD CELL COUNT 6.8 3.8-10.8 - Thousan d/uL * R ED BLOOD CELL COUNT 5.33 4.20-5.80 - Million/ uL * H EMOGLOBIN 15.0 13.2-17.1 - g/dL * H EMATOCRIT 48.9 38.5-50.0 - % * M CV 91.7 80.0-100.0 - fL * M CH 28.1 27.0-33.0 - pg * M CHC 30.7 L 32.0-36.0 - g/dL * R DW 14.9 11.0-15.0 - % * P LATELET COUNT 236 140-400 - Thousand/u L * N EUTROPHILS 59.4 - % * A BSOLUTE NEUTROPHILS 4039 8025-5745 - cells/uL * L YMPHOCYTES 22.5 - % * A BSOLUTE LYMPHOCYTES 0290 332-8080 - cells/uL * M ONOCYTES 10.0 - % * A BSOLUTE MONOCYTES 680 200-950 - cells/uL * E OSINOPHILS 7.5 - % * A BSOLUTE EOSINOPHILS 510 H 15-500 - cells/uL * B ASOPHILS 0.6 - % * A BSOLUTE BASOPHILS 41 0-200 - cells/uL * M PV 10.3 7.5-12.5 - fL * Lyn Rollins 06/27/2025 01: 55:40 PM EDT > pt and his informed. Faxed labs to Cardiology. ?LAB: HEMOGLOBIN A1c (496) (Collection Date & Time - 06/25/2025 09:27 AM)* Value Reference Range H EMOGLOBIN A1c 7.3 H <5.7 - % * Lyn Rollins 06/27/2025 01: 55:40 PM EDT > pt and his informed. Faxed labs to Cardiology. Clinical Notes: He is questioning need for referral to endocrinology but his A1c has pretty consistently been around 7, goal at his age is less than 8. Would be quite hesitant to put him on a GLP-1 inhibitor at this point with his underlying issues with his GI tract in the past year or so. Certainly could consider it in the future if needed for glucose control.??3.?Hypertension, essential?LAB: IRON, TIBC AND FERRITIN PANEL (7086) (Collection Date & Time - 06/25/2025 09:27 AM)* Value Reference Range I IZABELA, TOTAL 138 50-180 - mcg/dL * I IZABELA BINDING CAPACITY 406 250-425 - mcg/dL (c alc) * % SATURATION 34 20-48 - % (calc) * F ERRITIN 16 L 24-380 - ng/mL * Lyn Rollins 06/27/2025 01: 55:40 PM EDT > pt and his informed. Faxed labs to Cardiology. ?LAB: LIPID PANEL, STANDARD (0050) (Collection Date & Time - 06/25/2025 09:27 AM)* Value Reference Range T RIGLYCERIDES 115 <150 - mg/dL * C HOLESTEROL, TOTAL 147 <200 - mg/dL * H DL CHOLESTEROL 44 > OR = 40 - mg/dL * L DL-CHOLESTEROL 82 - mg/dL (calc) * C HOL/HDLC RATIO 3.3 <5.0 - (calc) * N ON HDL CHOLESTEROL 103 <130 - mg/dL (calc) * Lyn Rollins 06/27/2025 01: 55:40 PM EDT > pt and his informed. Faxed labs to Cardiology. ?LAB: COMPREHENSIVE METABOLIC PANEL ([id number]) (Collection Date & Time - 06/25/2025 09:27 AM)* Value Reference Range G LUCOSE 132 H 65-99 - mg/dL * U MICH NITROGEN (BUN) 21 7-25 - mg/dL * C REATININE 0.73 0.70-1.22 - mg/dL * B UN/CREATININE RATIO SEE NOTE: 6-22 - (calc) * S ODIUM 140 135-146 - mmol/L * P OTASSIUM 4.0 3.5-5.3 - mmol/L * C HLORIDE 104 98-110 - mmol/L * C ARBON DIOXIDE 28 20-32 - mmol/L * C ALCIUM 9.5 8.6-10.3 - mg/dL * P ROTEIN, TOTAL 6.8 6.1-8.1 - g/dL * A LBUMIN 4.4 3.6-5.1 - g/dL * G LOBULIN 2.4 1.9-3.7 - g/dL (calc ) * A LBUMIN/GLOBULIN RATIO 1.8 1.0-2.5 - (calc) * B ILIRUBIN, TOTAL 0.8 0.2-1.2 - mg/dL * A LKALINE PHOSPHATASE 60 35-144 - U/L * A ST 14 10-35 - U/L * A LT 13 9-46 - U/L * E GFR 92 > OR = 60 - mL/min/1 .73m2 * Lyn Rollins 06/27/2025 01: 55:40 PM EDT > pt and his informed. Faxed labs to Cardiology. ?LAB: CBC (INCLUDES DIFF/PLT) ([id number]) (Collection Date & Time - 06/25/2025 09:27 AM)* Value Reference Range W KAVITA BLOOD CELL COUNT 6.8 3.8-10.8 - Thousan d/uL * R ED BLOOD CELL COUNT 5.33 4.20-5.80 - Million/ uL * H EMOGLOBIN 15.0 13.2-17.1 - g/dL * H EMATOCRIT 48.9 38.5-50.0 - % * M CV 91.7 80.0-100.0 - fL * M CH 28.1 27.0-33.0 - pg * M CHC 30.7 L 32.0-36.0 - g/dL * R DW 14.9 11.0-15.0 - % * P LATELET COUNT 236 140-400 - Thousand/u L * N EUTROPHILS 59.4 - % * A BSOLUTE NEUTROPHILS 4039 2275-7718 - cells/uL * L YMPHOCYTES 22.5 - % * A BSOLUTE LYMPHOCYTES 2528 280-1608 - cells/uL * M ONOCYTES 10.0 - % * A BSOLUTE MONOCYTES 680 200-950 - cells/uL * E OSINOPHILS 7.5 - % * A BSOLUTE EOSINOPHILS 510 H 15-500 - cells/uL * B ASOPHILS 0.6 - % * A BSOLUTE BASOPHILS 41 0-200 - cells/uL * M PV 10.3 7.5-12.5 - fL * Lyn Rollins Stella 06/27/2025 01: 55:40 PM EDT > pt and his informed. Faxed labs to Cardiology. ?LAB: HEMOGLOBIN A1c (496) (Collection Date & Time - 06/25/2025 09:27 AM)* Value Reference Range H EMOGLOBIN A1c 7.3 H <5.7 - % * Lyn Rollins Stella 06/27/2025 01: 55:40 PM EDT > pt and his informed. Faxed labs to Cardiology. Notes: cardiology following as well, mildly elevated today but normal last several visits. monitor ?4.?Paroxysmal atrial fibrillation? 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 Faxed labs to Cardiology. ?LAB: LIPID PANEL, STANDARD (7600) (Collection Date & Time - 06/25/2025 09:27 AM)* Value Reference Range T RIGLYCERIDES 115 <150 - mg/dL * C HOLESTEROL, TOTAL 147 <200 - mg/dL * H DL CHOLESTEROL 44 > OR = 40 - mg/dL * L DL-CHOLESTEROL 82 - mg/dL (calc) * C HOL/HDLC RATIO 3.3 <5.0 - (calc) * N ON HDL CHOLESTEROL 103 <130 - mg/dL (calc) * Lyn Rollins 06/27/2025 01: 55:40 PM EDT > pt and his informed. Faxed labs to Cardiology. ?LAB: COMPREHENSIVE METABOLIC PANEL ([id number]) (Collection Date & Time - 06/25/2025 09:27 AM)* Value Reference Range G LUCOSE 132 H 65-99 - mg/dL * U MICH NITROGEN (BUN) 21 7-25 - mg/dL * C REATININE 0.73 0.70-1.22 - mg/dL * B UN/CREATININE RATIO SEE NOTE: 6-22 - (calc) * S ODIUM 140 135-146 - mmol/L * P OTASSIUM 4.0 3.5-5.3 - mmol/L * C HLORIDE 104 98-110 - mmol/L * C ARBON DIOXIDE 28 20-32 - mmol/L * C ALCIUM 9.5 8.6-10.3 - mg/dL * P ROTEIN, TOTAL 6.8 6.1-8.1 - g/dL * A LBUMIN 4.4 3.6-5.1 - g/dL * G LOBULIN 2.4 1.9-3.7 - g/dL (calc ) * A LBUMIN/GLOBULIN RATIO 1.8 1.0-2.5 - (calc) * B ILIRUBIN, TOTAL 0.8 0.2-1.2 - mg/dL * A LKALINE PHOSPHATASE 60 35-144 - U/L * A ST 14 10-35 - U/L * A LT 13 9-46 - U/L * E GFR 92 > OR = 60 - mL/min/1 .73m2 * Lyn Rollins 06/27/2025 01: 55:40 PM EDT > pt and his informed. Faxed labs to Cardiology. ?LAB: CBC (INCLUDES DIFF/PLT) (5530) (Collection Date & Time - 06/25/2025 09:27 AM)* Value Reference Range W KAVITA BLOOD CELL COUNT 6.8 3.8-10.8 - Thousan d/uL * R ED BLOOD CELL COUNT 5.33 4.20-5.80 - Million/ uL * H EMOGLOBIN 15.0 13.2-17.1 - g/dL * H EMATOCRIT 48.9 38.5-50.0 - % * M CV 91.7 80.0-100.0 - fL * M CH 28.1 27.0-33.0 - pg * M CHC 30.7 L 32.0-36.0 - g/dL * R DW 14.9 11.0-15.0 - % * P LATELET COUNT 236 140-400 - Thousand/u L * N EUTROPHILS 59.4 - % * A BSOLUTE NEUTROPHILS 4039 4941-6666 - cells/uL * L YMPHOCYTES 22.5 - % * A BSOLUTE LYMPHOCYTES 3450 454-1483 - cells/uL * M ONOCYTES 10.0 - % * A BSOLUTE MONOCYTES 680 200-950 - cells/uL * E OSINOPHILS 7.5 - % * A BSOLUTE EOSINOPHILS 510 H 15-500 - cells/uL * B ASOPHILS 0.6 - % * A BSOLUTE BASOPHILS 41 0-200 - cells/uL * M PV 10.3 7.5-12.5 - fL * Lyn Rollins 06/27/2025 01: 55:40 PM EDT > pt and his informed. Faxed labs to Cardiology. ?LAB: HEMOGLOBIN A1c (496) (Collection Date & Time - 06/25/2025 09:27 AM)* Value Reference Range H EMOGLOBIN A1c 7.3 H <5.7 - % * Lyn Rollins 06/27/2025 01: 55:40 PM EDT > pt and his informed. Faxed labs to Cardiology. 6.?Postherpetic neuralgia? Notes: stable??7.?BMI 27.0-27.9,adult? Clinical Notes: stable??8.?History of iron deficiency anemia?LAB: IRON, TIBC AND FERRITIN PANEL (5616) (Collection Date & Time - 06/25/2025 09:27 AM)* Value Reference Range I IZABELA, TOTAL 138 50-180 - mcg/dL * I IZABELA BINDING CAPACITY 406 250-425 - mcg/dL (c alc) * % SATURATION 34 20-48 - % (calc) * F ERRITIN 16 L 24-380 - ng/mL * Lyn Rollins 06/27/2025 01: 55:40 PM EDT > pt and his informed. Faxed labs to Cardiology. ?LAB: LIPID PANEL, STANDARD (3060) (Collection Date & Time - 06/25/2025 09:27 AM)* Value Reference Range T RIGLYCERIDES 115 <150 - mg/dL * C HOLESTEROL, TOTAL 147 <200 - mg/dL * H DL CHOLESTEROL 44 > OR = 40 - mg/dL * L DL-CHOLESTEROL 82 - mg/dL (calc) * C HOL/HDLC RATIO 3.3 <5.0 - (calc) * N ON HDL CHOLESTEROL 103 <130 - mg/dL (calc) * Lyn Rollins 06/27/2025 01: 55:40 PM EDT > pt and his informed. Faxed labs to Cardiology. ?LAB: COMPREHENSIVE METABOLIC PANEL (07960) (Collection Date & Time - 06/25/2025 09:27 AM)* Value Reference Range G LUCOSE 132 H 65-99 - mg/dL * U MICH NITROGEN (BUN) 21 7-25 - mg/dL * C REATININE 0.73 0.70-1.22 - mg/dL * B UN/CREATININE RATIO SEE NOTE: 6-22 - (calc) * S ODIUM 140 135-146 - mmol/L * P OTASSIUM 4.0 3.5-5.3 - mmol/L * C HLORIDE 104 98-110 - mmol/L * C ARBON DIOXIDE 28 20-32 - mmol/L * C ALCIUM 9.5 8.6-10.3 - mg/dL * P ROTEIN, TOTAL 6.8 6.1-8.1 - g/dL * A LBUMIN 4.4 3.6-5.1 - g/dL * G LOBULIN 2.4 1.9-3.7 - g/dL (calc ) * A LBUMIN/GLOBULIN RATIO 1.8 1.0-2.5 - (calc) * B ILIRUBIN, TOTAL 0.8 0.2-1.2 - mg/dL * A LKALINE PHOSPHATASE 60 35-144 - U/L * A ST 14 10-35 - U/L * A LT 13 9-46 - U/L * E GFR 92 > OR = 60 - mL/min/1 .73m2 * Ayo Lyn Stella 06/27/2025 01: 55:40 PM EDT > pt and his informed. Faxed labs to Cardiology. ?LAB: CBC (INCLUDES DIFF/PLT) (4760) (Collection Date & Time - 06/25/2025 09:27 AM)* Value Reference Range W KAVITA BLOOD CELL COUNT 6.8 3.8-10.8 - [place]ousan d/uL * R ED BLOOD CELL COUNT 5.33 4.20-5.80 - Million/ uL * H EMOGLOBIN 15.0 13.2-17.1 - g/dL * H EMATOCRIT 48.9 38.5-50.0 - % * M CV 91.7 80.0-100.0 - fL * M CH 28.1 27.0-33.0 - pg * M CHC 30.7 L 32.0-36.0 - g/dL * R DW 14.9 11.0-15.0 - % * P LATELET COUNT 236 140-400 - Thousand/u L * N EUTROPHILS 59.4 - % * A BSOLUTE NEUTROPHILS 4039 8283-6528 - cells/uL * L YMPHOCYTES 22.5 - % * A BSOLUTE LYMPHOCYTES [phone] - cells/uL * M ONOCYTES 10.0 - % * A BSOLUTE MONOCYTES 680 200-950 - cells/uL * E OSINOPHILS 7.5 - % * A BSOLUTE EOSINOPHILS 510 H 15-500 - cells/uL * B ASOPHILS 0.6 - % * A BSOLUTE BASOPHILS 41 0-200 - cells/uL * M PV 10.3 7.5-12.5 - fL * Lyn Rollins 06/27/2025 01: 55:40 PM EDT > pt and his informed. Faxed labs to Cardiology. ?LAB: HEMOGLOBIN A1c (496) (Collection Date & Time - 06/25/2025 09:27 AM)* Value Reference Range H EMOGLOBIN A1c 7.3 H <5.7 - % * Lyn Rollins 06/27/2025 01: 55:40 PM EDT > pt and his informed. Faxed labs to Cardiology. ?LAB: VITAMIN B12 (927) (Collection Date & Time - 06/25/2025 09:27 AM)* Value Reference Range V ITAMIN B12 135 443-0456 - pg/mL * Lyn Rollins 06/27/2025 01: 55:40 PM EDT > pt and his informed. Faxed labs to Cardiology. 9.?Poor balance?LAB: VITAMIN B12 (927) (Collection Date & Time - 06/25/2025 09:27 AM)* Value Reference Range V ITAMIN B12 280 386-6682 - pg/mL * Lyn Rollins 06/27/2025 01: 55:40 PM EDT > pt and his informed. Faxed labs to Cardiology. ?LAB: TSH W/REFLEX TO FT4 (69955) (Collection Date & Time - 06/25/2025 09:27 AM)* Value Reference Range T SH W/REFLEX TO FT4 1.31 0.40-4.50 - mIU/L * Lyn Rollins 06/27/2025 01: 55:40 PM EDT > pt and his informed. Faxed labs to Cardiology. Clinical Notes: Likely multifactorial. Will repeat labs today to make sure he is not becoming anemic again. We have discussed neurology referral in the past for possible Parkinson's-like syndrome buthe had declined. Might consider that in the future. Could also be medication side effect??10.?Benign prostatic hyperplasia without lower urinary tract symptoms? Refill Doxazosin Mesylate Tablet, 4 MG, 1/2 tab(s), orally, at bedtime, 90 days, 45, Refills 3. ? * Immunizations: Arexvy : 0.5 mL (Dose No:1) (Route: Intramuscular) given by FRED Cain on Left Deltoid * Procedure Codes: 9 0679 Arexvy, 48449 ADMINISTRATION IMMUNIZATION ONE VACCINE, G0439 ANNUAL WELLNESS VST; PPS SUBSQT VST, 1123F ADVANCED DIRECTIVE - HAS A LIVING WILL, G8420 BMI documented as normal, no follow up required., G8510 NEGATIVE SCREENING F/U NOT REQUIRED, G9903 Pt scrn tbco id as non user, G8753 Most recent systolic blood pressure >= 140mmhg, G8754 Most recent diastolic blood pressure < 90mmhg, G9744 PATIENT NOT ELIG D/T ACTIVE DX HTN * Preventive Medicine: Counseling: L iving will H as living will. RODO Screening: F alls: Future screening for fall risks H ave you had two or more falls in the past year? Y es, H ave you had any falls with injury in the past year? N o. Depression Screening: P HQ 2 F eeling down depressed or hopeless N o. Immunizations: i nfluenza H ave you had a flu shot since the most recent July 23 ? Y es. P neumonia vaccine: Status for Older Adults A re you up-to-date on your pneumonia vaccine? yes or no B oth Prevnar and Pneumovax. Z ostavax Y es. T dap U TD. C OVID C ompleted series. R SV vaccination D one today. Screening / Special Tests: C olonoscopy 2 020. L letty Cancer Screening N ot indicated - nonsmoker. * Follow Up: 4 Months * * Sign off status: Completed true * Provider: MIMA Meyer Date: 0 06/25/2025 Generated for Printi ng/Faxing/eTransmitting on: 1 08:38 AM EDT History and Physical Notes * Examination Category Sub-Category Detail Notes Category Not es General Examination Heart: Regular Rate and Rhyt hm, Lungs: clear to auscultatio n, Abdomen: soft, NT/ND, BS pres ent Extremities: no clubbing, no maddy a, Skin: without acute rashes Neurologic Exam: Alert and oriented x 3, gait is unsteady and slightly forward leaning Oral cavity: Moist membranes Peripheral pulses: normal (2+) bilatera lly neck supple,, no thyromeg vivian,, no lymphadenopathy, General Pleasant and [place] tive, NAD on RA, Psych Normal Mood/Affect diabetic foot exam Visual exam of foot performed :: Yes
--- OUTSIDE RECORDS SUMMARY | 2025-08-21 05:00 | XMS_ITS ---
Author Organization [facility] Address [address] [facility] [address] [place], [place] [address] Care Team Providers Care Engineer System Administrator Name Role Phone Jl Berumen Primary Care Provider [phone] Daniella Sánchez [phone] REASON FOR VISIT High blood pressure Encounters Encounter Location Date Provider Diagnosis [facility] [address] [facility] [address] [place], [place] [address] 08/21/2025 Daniella Sánchez Plan Of Treatment Next Appt Details Provider Name:Daniella Allen ce, 10/25/2025 09:00:00 AM, [address] [facility], [address], [place], [place], [address], Progress Notes * Yojana MARQUEZ BDOB: (80 yo M)Acc No.[id number]:08/21/2025 Progress Notes Patient: Yojana BURNS Provider: MIMA Meyer :1945 A ge:80 Y S ex:Male Date:08/21/2025 Address:[address], [place] Pcp:Jl Berumen Subjective: * Chief Complaints: * 1 . High blood pressure. * Medical History: Objective: * Vitals: Assessment: Plan: * Treatment: * * Electronic signature of Anika Sánchez APRN on 08/24/2025 at 08:38 AM EDT Sign off status: Pending * Provider: MIMA Meyer Date: 0 08/21/2025 Generated for Merissa yousif/Flako/Iris on: 1 08:38 AM EDT
--- OUTSIDE RECORDS SUMMARY | 2025-08-24 08:38 | XMS_ITS | Patient Health Record ---
Author Organization [facility] Address [address] [place] [address] Care Team Providers Care Position Description Manager Name Role Phone Jl Berumen Primary Care Provider Daniella Sánchez Unavailable [phone] Migration, Provider Unavailable Unavailable Allergies Allergen (clinical drug ingredient) Drug/Non Drug Allergy documented on EMR Reaction Allergy Type Onset Date Status amoxicillin Amoxicillin hives Drug Allergy Act beth pregabalin Lyrica vertigo Drug Allergy Active Results Component Value Reference Range Notes Urinalysis Reviewed date:05/14/2025 02:01:56 PM Interpretation: Performing Lab: Notes/Report: Color/Clarity yellow Leuk neg Nitrite neg Urobili 0.2 Protein neg pH 5.5 Blood neg Sp. Gr. 1.010 Ketone neg Bili neg Glucose >=1000 COMPREHENSIVE METABOLIC PANE L (39162) Reviewed date:06/27/2025 01:57:21 PM Interpretation: Performing Lab:CB, [facility] Jxdr3417 [facility], [facility] RochesterPewrJX[address] Claude Banks Notes/Report: NON-FASTING; NON-FASTING; NON-FASTING; NON-FASTING; [...] 14 10-35 U/L ALT 13 9-46 U/L HEMOGLOBIN A1c (496) Reviewed date:06/27/2025 01:57:21 PM Interpretation: Performing Lab:[facility] Ksrr2071 [employer] [facility], [employer] EubdTG[address] Claude Banks Notes/Report: NON-FASTING; NON-FASTING; NON-FASTING; NON-FASTING; [...] Reviewed date:06/27/2025 01:57:21 PM Interpretation: Performing Lab:[facility] Diwu1202 [employer] [facility], [employer] LimitedXlozHT[address] Claude Banks Notes/Report: NON-FASTING; NON-FASTING; NON-FASTING; NON-FASTING; NON-FAST FASTING:YES FASTING: YES VITAMIN B12 521 561-2149 pg/mL TSH W/REFLEX TO FT4 (20073) Reviewed date:06/27/2025 01:57:21 PM Interpretation: Performing Lab:[facility] Ddie8225 [address] [facility], [facility] RochesterQsbpXZ[address] Claude Banks Notes/Report: NON-FASTING; NON-FASTING; NON-FASTING; NON-FASTING; NON-FAST FASTING:YES FASTING: YES TSH W/REFLEX TO FT4 1.31 0.40-4.50 mIU/L M-Basic Metabolic Panel Reviewed date:11/16/2024 09:35:27 AM [...] 49-181 ug/dL DTIBC 424 261-462 ug/dL IRONSAT 19.94692 15-55 % LIPID PANEL, STANDARD (7600) Reviewed date:06/27/2025 01:57:21 PM Interpretation: Performing Lab:[facility] [address], [facility] RochesterMrfdRD[address] Claude Banks Notes/Report: NON-FASTING; NON-FASTING; NON-FASTING; NON-FASTING; [...] of LDL-C. Josiah SS et al. ROME. 2013;310(19): 0704-0025 (http://education.SimpleSite.com/faq/GBA825) CHOL/HDLC RATIO 3.3 <5.0 (calc) NON HDL CHOLESTEROL 103 <130 mg/dL (calc) For patients with diabetes plus 1 major ASCVD risk factor, treating to a non-HDL-C goal of <100 mg/dL (LDL-C of <70 mg/dL) is considered a therapeutic option. CBC (INCLUDES DIFF/PLT) (639 9) Reviewed date:06/27/2025 01:57:21 PM Interpretation: Performing Lab:CARL, [facility] Ufuc1848 [facility], [facility] RochesterBfkgHF[address] Claude Banks Notes/Report: NON-FASTING; NON-FASTING; NON-FASTING; NON-FASTING; [...] MPV 10.3 7.5-12.5 fL ABSOLUTE NEUTROPHILS 4039 3795-3883 cells/uL ABSOLUTE LYMPHOCYTES 8274 843-6795 cells/uL ABSOLUTE MONOCYTES 680 200-950 cells/uL ABSOLUTE EOSINOPHILS 510 15-500 cells/uL ABSOLUTE BASOPHILS 41 0-200 cells/uL NEUTROPHILS 59.4 LYMPHOCYTES 22.5 MONOCYTES 10.0 EOSINOPHILS 7.5 BASOPHILS 0.6 H-MALBCREA Reviewed date:02/20/2025 11:13:20 AM Interpretation: Performing Lab: Notes/Report: Units: mg/g creat Normal: 0 - 29 Moderately Increased: 30 - 300 Severely Increased: >300 UCREAT 47 Not Estab. mg/dL Random urine reference range not established. 24 hour urine samples recommended. MICROALB 33.600 0-16.7 mg/L MALBCREAT 71.4 M-Hemoglobin A1C Reviewed date:02/20/2025 11:17:17 AM Interpretation: [...] AGRATIO 2.0 1.1-1.8 ALP 91 38-126 U/L M-Complete Blood Count Auto Diff Reviewed date:11/16/2024 [...] 0.3 0.0-0.4 K/mm3 BA# 0.0 0-0.2 K/mm3 IRON, TIBC AND FERRITIN JENNIFER Dominique (5616) Reviewed date:06/27/2025 01:57:21 PM Interpretation: Performing Lab:CB, [facility]1355 [facility], [facility] RochesterHenvJS[address] Claude Banks Notes/Report: NON-FASTING; NON-FASTING; NON-FASTING; NON-FASTING; NON-FAST FASTING:YES FASTING: YES IRON, TOTAL 138 50-180 mcg/dL IRON BINDING CAPACITY 406 250-425 mcg/dL (edie c) % SATURATION 34 20-48 % (calc) FERRITIN 16 24-380 ng/mL Reason For Referral No Information Medications Medication SIG (Take, Route, Frequency, Duration) Notes Start Date End Date Status Pantoprazole Sodium 40 MG 1 tab(s) orally once a day; Duration: 30 days Active Farxiga 10 MG 1 tablet Orally [...] 5 minutes prn; Duration: 30 days Active ACCU-CHEK RIO PLUS TEST STRIPS FOR DIABETIC TESTING ONCE A DAY; Duration: 90 DAYS E11.9 *Please review for potential replacement for e-prescription and drug interaction check* 07/11/2018 Active dilTIAZem HCl ER 360 MG/24 HOURS 1 CAP(S) ORALLY ONCE A DAY *Please review and pick correct strength-formulati on from On The Net Yet options. If intended option is not shown, discontinue and re-order from Quick Search* Active ACCU CHECK SOFT CLICK LANCETS DIRECTED ONCE A DAY; Duration: 90 DAYS E11.9 *Please review for potential replacement for e-prescription and drug interaction check* 07/11/2018 Active metFORMIN HCl ER 500 MG TAKE 2 TABLETS BY MOUTH TWICE DAILY; Duration: 90 Active Tradjenta 5 MG 1 tab(s) orally once a day; Duration: 90 days Active Mupirocin 2 % 1 application Externally [...] Status Risk Notes Problem Paroxysmal atrial fibrillation (374283852) Paroxysmal atrial fibrillation (I48.0) Active confirmed Problem Hyperlipidemia (65310806) Hyperlipemia, idiopathic familial (E78.5) Active confirmed Problem Essential hypertension (88702095) Hypertension, essential (I10) Active confirmed Problem Back pain (882294029) Back pain (M54.9) Active confirmed Problem Postherpetic neuralgia (7346380) Postherpetic neuralgia (B02.29) Active confirmed Problem Body mass index 30+ - obesity (307395217) BMI 30.0-30.9,adult (Z68.30) Active confirmed Problem Atherosclerosis of coronary artery without angina pectoris (308774479426792) Atherosclerosis of [place] coronary artery of [place] heart without angina pectoris (I25.10) Active confirmed Problem Atherosclerotic heart disease of [place] coronary artery without angina pectoris (335009633353931) Coronary artery disease involving [place] coronary artery of [place] heart without angina pectoris (I25.10) Active confirmed Problem Body mass index 25-29 - overweight (715714622) BMI 28.0-28.9,adult (Z68.28) Active confirmed Problem Diabetic renal disease (349047327) 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) Active confirmed Problem Angina (403853702) Coronary emily ry disease involving [place] coronary artery of [place] heart with angina pectoris (I25.119) Active confirmed Problem Peripheral vascular disease (713828746) PAD (peripheral artery disease) (I73.9) Active confirmed Problem Cognitive impairment (976317237) Cognitive impairment (R41.89) Active confirmed Problem Iron deficiency anemia (11242114) Iron deficiency anemia, unspecified iron deficiency anemia type (D50.9) Active confirmed Problem Angina pectoris (911290289) Angina pectoris (I20.9) Active confirmed Problem BMI 25-29 - overweight (235015868) BMI 29.0-29.9,adult (Z68.29) Active confirmed Problem History of shingles (148116391305378) History of shingles (Z86.19) Active confirmed Problem Pain in right sacroiliac joint (73583420309534388) Pain of right sacroiliac joint (M53.3) Active confirmed Problem Benign prostatic hypertrophy without outflow obstruction (698842068) Benign prostatic hyperplasia without lower urinary tract symptoms (N40.0) Active confirmed Problem Angina co-occurrent and due to coronary arteriosclerosis (37118121219817760) Coronary artery disease of [place] artery of [place] heart with stable angina pectoris (I25.118) Active confirmed Problem Skin sensation disturbance (02471196) Left leg paresthesias (R20.2) Active confirmed Problem History of iron deficiency anemia (297267857) History of iron deficiency anemia (Z86.2) Active confirmed Problem Poor balance (691786185) Poor balance (R26.89) Active confirmed Vital Signs Heart Rate 78 /min 06/25/2025 Temperature 97.6 degrees Fahrenheit 06/25/2025 Blood pressure diastolic 72 mm Hg 06/25/2025 Height 5 ft 9 in in 06/25/2025 Blood pressure systolic 144 mm Hg 06/25/2025 Weight 187.2 lbs 06/25/2025 BMI 27.64 kg/m2 06/25/2025 Encounters Encounter Location Date Provider Diagnosis [facility] [address] [place] [address] 02/24/2025 Provider Migration [facility] [address] [facility] [address] [place] [address] 12/04/2024 Daniella Princess Hypertension, essential I10 ; 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 ; Paroxysmal atrial fibrillation I48.0 ; Iron deficiency anemia, unspecified iron deficiency anemia type D50.9 ; Other injury of unspecified body region, initial encounter T14.8XXA and Local infection of the skin and subcutaneous tissue, unspecified L08.9 [facility] [address] [facility] [address] [place] [address] 12/30/2024 Daniella Princess Laceration of left hand without foreign body, initial encounter S61.412A [facility] [address] [facility] [address] [place] [address] 02/20/2025 Daniella Princess Hypertension, essential I10 ; 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 ; Paroxysmal atrial fibrillation I48.0 and Iron deficiency anemia, unspecified iron deficiency anemia type D50.9 [facility] [address] [facility] [address] [place] [address] 03/07/2025 Jl Berumen Infective pharyngiti s J02.9 [facility] [address] [facility] [address] [place] [address] 05/14/2025 Daniellagabi PerkinsPrincess Dysuria R30.0 [facility] [address] [facility] [address] [place] [address] 05/17/2025 Daniella Princess Strain of quadriceps , unspecified laterality, initial encounter S76.119A ; Pain, joint, knee, right M25.561 and Abrasion of lower extremity, unspecified laterality, initial encounter S80.819A [facility] [address] [facility] [address] [place] [address] 06/07/2025 Daniella Princess Skin tear of right upper extremity S41.111A and Multiple skin tears T14.8XXA [facility] [address] [facility] [address] [place] [address] 06/25/2025 Daniella Sánchez 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 ; Medicare annual wellness visit, subsequent Z00.00 ; Hypertension, essential I10 ; Paroxysmal atrial fibrillation I48.0 ; Coronary artery disease involving umk[place] coronary artery of [place] heart without angina pectoris I25.10 ; Postherpetic neuralgia B02.29 ; BMI 27.0-27.9,adult Z68.27 ; History of iron deficiency anemia Z86.2 ; Poor balance R26.89 ; Encounter for immunization Z23 and Benign prostatic hyperplasia without lower urinary tract symptoms N40.0 [facility] [address] [facility] [address] [place], [place] [address] 09/11/2024 Daniella Sánchez [facility] [address] [address] 11/13/2024 Daniella Sánchez SOB (shortness of breath) R06.02 [facility] [address] [facility] [address] [place], [place] [address] 12/04/2024 Daniella Sánchez [facility] [address] [facility] [address] [place] [address] 06/07/2025 Daniella Sánchez Coronary artery disease of um[place] artery of [place] heart with stable angina pectoris I25.118 [facility] [address] [facility] [address] [place] [address] 06/14/2025 Daniella Sánchez Assessments Encounter Date Diagnosis (ICD Code) Assessment Notes Treatment Notes Treatment Clinical Notes Section Notes 12/04/2024 Hypertension, essential (ICD-10 - I10) well [...] on most recent labs, chronic stable microalbuminuria 05/14/2025 Dysuria (ICD-10 - R30.0) 06/25/2025 Type 2 diabetes mellitus with proteinuric [...] lab results 06/07/2025 Coronary artery disease of [place] artery of [place] heart with stable angina pectoris (ICD-10 - I25.118) 06/07/2025 Skin tear of right upper extremity (ICD-10 - S41.111A) No evidence of infection at this time. Cleanse daily with warm soapy water and pat dry, dry dressing. Allow Steri-Strips to fall off naturally. Return precautions reviewed 06/07/2025 Multiple skin tears (ICD-10 - T14.8XXA) 05/17/2025 Pain, joint, knee, right (ICD-10 - M25.561) tylenol, resume use of knee brace and monitor. consider imaging/injection if this progresses 05/17/2025 Strain of quadriceps, unspecified laterality, initial encounter (ICD-10 - S76.119A) suspect strain r/t fall, encouraged better fluid intake, rest/stretching and heat as needed for comfort. also encouraged tylenol in the morning before starting his activity 03/07/2025 Infective pharyngitis (ICD-10 - J02.9) Due to duration of symptoms with age and physical exam findings will treat with Cefdinir (1 capsule twice daily). Gargle with warm salt water twice daily to relieve inflammation of throat. 02/20/2025 Hypertension, essential (ICD-10 - I10) well [...] for the next 24 to 48 hours. 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 No medication changes recommended unless indicated on labs today. Eye exam UTD. Tolerating statin therapy. On ARB previously but stopped due to cardiovascular management issues...Creatinine /GFR normal on most recent labs, chronic stable microalbuminuria 05/17/2025 Abrasion of lower extremity, unspecified laterality, initial encounter (ICD-10 - S80.819A) 06/25/2025 Hypertension, essential (ICD-10 - I10) cardiology following as well, mildly elevated today but normal last several visits. monitor 12/04/2024 Paroxysmal atrial fibrillation (ICD-10 - I48.0) Xarelto changed to Eliquis because of bleeding issues, sotalol 12/04/2024 Iron deficiency anemia, unspecified iron deficiency anemia type (ICD-10 - D50.9) stop oral replacement, continue IV replacement as needed 06/25/2025 Paroxysmal atrial fibrillation (ICD-10 - I48.0) per cardiology, regular on exam today 02/20/2025 Paroxysmal atrial fibrillation (ICD-10 - I48.0) Sotalol, s/p SHAYNE ligation 02/20/2025 Iron deficiency anemia, unspecified iron deficiency anemia type (ICD-10 - D50.9) continue hematology FU but hopefully discontinuation of anticoagulants will resolve this issue 06/25/2025 Coronary artery disease involving umkumi[place] coronary artery of [place] heart without angina pectoris (ICD-10 - I25.10) [...] N-HbA1C 10/21/2006 Echocardiogram 12/22/2014 C-CBC 03/17/2017 C-CBC 04/19/2020 C-CBC 07/24/2021 C-CBC 07/17/2019 C-CBC 06/20/2012 C-CBC 08/05/2017 C-CBC 12/28/2017 C-BASIC METABOLIC 01/18/2019 C-CMP 07/17/2019 C-CMP 08/21/2016 C-CMP 06/20/2012 C-CMP 04/29/2011 C-CMP 11/11/2016 C-CMP 08/05/2017 C-CMP 12/28/2017 C-CMP 07/24/2021 C-CMP 01/22/2021 C-CMP 04/19/2020 C-CMP 12/01/2012 C-CMP 03/17/2017 C-CMP 06/01/2013 C-CMP 08/15/2009 C-CMP 11/27/2011 C-MICROALBUMIN 06/01/2013 C-MICROALBUMIN 12/01/2012 C-LIPID PANEL 12/01/2012 C-LIPID PANEL 04/19/2020 C-LIPID PANEL 01/22/2021 C-LIPID PANEL 07/24/2021 C-LIPID PANEL 12/28/2017 C-LIPID PANEL 11/11/2016 C-LIPID PANEL 08/05/2017 C-LIPID PANEL 04/29/2011 C-LIPID PANEL 06/20/2012 C-LIPID PANEL 08/21/2016 C-LIPID PANEL 07/17/2019 C-LIPID PANEL 06/01/2013 C-LIPID PANEL 11/27/2011 C-LIPID PANEL 08/15/2009 C-TSH 03/17/2017 C-TSH 04/22/2020 C-PSA 02/10/2008 C-PSA 06/01/2013 C-CPK 03/17/2017 C-HGBA1C 06/01/2013 C-HGBA1C 11/27/2011 C-HGBA1C 03/17/2017 C-HGBA1C 07/24/2021 C-HGBA1C 11/11/2016 C-HGBA1C 08/15/2009 C-HGBA1C 04/29/2011 C-HGBA1C 01/18/2019 C-HGBA1C 08/21/2016 C-HGBA1C 06/20/2012 C-HGBA1C 08/05/2017 C-HGBA1C 12/28/2017 C-HGBA1C 07/17/2019 C-HGBA1C 12/01/2012 C-HGBA1C 04/19/2020 H-DIARRHEA PANEL PCR 03/17/2017 M-Hemoglobin and Hematocrit 07/05/2024 M-Upper Respiratory Panel, PCR M-Diarrhea Panel, PCR 03/08/2023 M-Iron and TIBC 11/13/2024 M-Microalb/Creat Ratio, Randm Ur 025 Physical Therapy Eval and Treat 02/09/20 23 Physical Therapy Eval and Treat 10/11/20 23 [...] [address], [place], [address], Insurance Providers Payer Name Payer Address Payer Phone Subscriber Number Group Number Insured Name Patient Relationship to Insured Coverage Start Date Coverage End Date [place] [address] [place] [place] [address] [id number] Yojana Chaudhari Self - patient is the insured [employer] [address] [place] [address] [address] [place] [address] ACL Yojana Chaudhari Self - patient is [...] ligation at 01/2025 Hospitalization History Reason Date(Month/Year) [facility] - anemia, GIB 06/27-06/28/24 3 stents (02/21/2015) 02/19/2015 above surgeries 5 stents and pacemaker 12/2014 [facility]- Heart Cath 05/18/24-05/19/24
--- OUTSIDE RECORDS SUMMARY | 2025-08-24 08:38 | XMS_ITS | Clinical Summary ---
Author Organization [facility] Address [address] [place] [address] Care Team Providers Care Marine Radio Installer And Servicer Name Role Phone Daniella Sánchez ACETYLENE CUTTER Primary Care Provider [phone]- [phone] Allergies Active Allergy Reactions Criticality Noted Date [...] 1 tablet (81 mg) by mouth daily. 07/30/20 25 Active Problems Problem Noted Date Diagnosed Date [...] Type Department Care Team Description 06/29/2025 Telephone [facility] [place] [address] [address] Ольга Ortiz PA from Last 3 Months [...] Health Maintenance Due Date Last Done Comments [facility]-Diabetes: Hemoglobin A1C 1945 [facility]-Medicare Annual Wellness (AWV) 1945 [facility]-/Child/Adol SDOH Screenings 1945 Diabetes: Dental Exam 1955 [facility]- SDOH Screenings 1963 [facility]-Adult SDOH Screenings 1963 [facility]-Zoster Vaccines (1 of 2) 1995 [facility]-RSV Vaccine: 60+ Years or (1 - 1-dose 75+ series) 2020 [id number] Vaccine (2024- season) 2025 09/22/2021, 01/21/2021, 12/24/2020 [facility]-Influenza Vaccine (#1) 07/23/202508/15, [...] this topic Medical Devices Implanted Type Area Clinical Rehab Liaison Device Identifier Shelf Expiration Date Model / Serial / Lot Device Watchman Flx Pro Ailin Closure 27mm - [id number] Implanted:Qty : 1 on 01/31/2025 by Raman Machado MD at [facility] [employer]-[id number] 11/29/2027 [id number] / / [id number] Device Watchman Flx Pro Procedure - [id number] Implanted:Qty : 1 on 01/31/2025 by Raman Machado MD at [facility] [employer]-[id number] / / Insurance MEDICARE Advance Directives * Full Code (Latest Code Status on File) Date Activated Date Inactivated Comments 01/31/2025 9:55 AM 01/31/2025 7:38 PM Question Answer Comments Patient has decision-making capacity? Yes Care Teams Marine Radio Installer And Servicer Relationship Specialty Start Date End Date Daniella áSnchez APRN [address] [place] [address] PCP - General 11/22/22
--- OUTSIDE RECORDS SUMMARY | 2025-08-24 08:39 | XMS_ITS | Encounter Summary ---
Author Organization [facility] Address [address] [place] [address] Care Team Providers Care Package Liner Name Role Phone Daniella Sánchez COLLAR TACKER Primary Care Provider [phone]- [phone] Encounter Details Date Type Department Care Team (Late st Contact Info) Description 06/29/2025 Telephone [facility] [place] [address] [place] [address] Ольга Ortiz PA [address] [place] [address] Social History Tobacco Use Types [...] needs another CT? Best contact number: Other: [phone] Optimal time of day to reach caller: ANYTIME Additional comments/information from caller: None Note: Please do not reply to this message. Follow-up communication and further actions as a result of this message need to be communicated with the patient directly, if the patient is not active onMyChart. If the patient is active on MyChart, they will receive notification of the communication/outcome via [employer]. documented in this encounter Plan of Treatment [...] documented as of this encounter Care Teams Package Liner Relationship Specialty Start Date End Date Daniella Sánchez APRN [address] [place] [address] PCP - General 11/22/22 documented as of this encounter
--- OUTSIDE RECORDS SUMMARY | 2025-08-24 08:39 | XMS_ITS | Clinical Summary ---
Author Organization [facility] [place] [address] Care Team Providers Care Machine Or Machinery Mechanic Name Role Phone Unavailable Primary Care Provider [...] 1-d ose 75+ series) 2020 COVID-19 Vaccine ( - 2023-2 5 season) 2025 Influenza Vaccine (#1) 2025 Hepatitis B Vaccine Aged Out No longe r eligible based on patient's age to complete this topic Meningococcal B Vaccine Aged Out No l onger eligible based on patient's age to complete this topic
--- NOTE | 2025-08-24 08:45 | CA_ITS ---
APPROVED REPORT EXAM: Comprehensive 2D, Doppler, and color-flow Echocardiogram Administration Physician: Sara Wells RT(R) Ht: 5 ft 6 in Wt: 188lbs BSA: 1.95 BP: 151/73 mmHg Indications: angina, CAD, AFIB with watchman 2D Dimensions LA Volume 42.80 mL LA Volume Index 21.95 mL/m2 (M/F) 16-34 EF AP4 44.20 % GL Strain -9.9 % M-Mode Dimensions RVDd 3.01 cm (0.9-2.6) LA Diam 3.74 cm (1.9-4.0) LVDd 3.46 cm (3.5-5.7) LVDs 2.40 cm (3.5-5.7) IVSd 0.72 cm (0.6-1.1) PWd 0.84 cm (0.6-1.1) EF (Teich) 59.20% FS 30.60% EDV (Teich) 49.50 mL ESV (Teich) 20.20 mL LV Diastology E Decel Time 233 (160-240 msec) E/A Ratio 0.8 Aortic Valve NAOMI Index 1.16 cm2/m2 AoV Peak Dante. 121.0 (50-130 cm/s) AO Peak GR. 5.90 mmHg AO Mean GR. 2.90 (<5 mmHg) AO VTI 24.8 (18-25 cm) NAOMI (VTI) 2.32 (2.5-4.5 cm2) Mitral Valve MV E Max Dante. 85.0 (40-130 cm/s) MV A Velocity 108.0 (40-130 cm/s) E/A Ratio 0.78 MV PHT 68.0 ms Left Ventricle The left ventricle is normal size. Left ventricular systolic function is normal. The left ventricular ejection fraction is within the normal range. There is normal left ventricular wall thickness. There is normal LV segmental wall motion. Transmitral Doppler flow pattern suggests impaired LV relaxation. LVEF is 55%. Right Ventricle The right ventricle is not very well visualized, but grossly appears normal in size and function. Atria The left atrium is mildly dilated. The right atrium is not well visualized. There is no color Doppler evidence of interatrial shunt. Aortic Valve The aortic valve is mildly thickened. There is no hemodynamically significant aortic valvular stenosis. No aortic regurgitation is present. Mitral Valve The mitral valve is normal in structure. No evidence of mitral valve stenosis. Trace mitral regurgitation is present. Tricuspid Valve The tricuspid valve leaflets are thin and pliable. Trace tricuspid regurgitation. There is insufficient TR jet to estimate RVSP. Pulmonic Valve The pulmonary valve is grossly normal in structure. Trace pulmonic valve regurgitation is present. Great Vessels The aortic root is normal in size. IVC is normal in size and collapses >50% with inspiration. Pericardium There is no pericardial effusion. Other Information Study Quality: Technically Difficult Conclusion Technically difficult study. Normal biventricular systolic function. Mild LA dilation. No significant valvular stenosis or regurgitation. Electronically signed by : Vonda Moreau MD 08/25/2025 23:46:37
== END 2025-08-24 23:59 | disposition home or self-care (01) ==
LOC: RT 08:35
PROVIDERS: PCP Nurse Practitioner Family; Visit Provider Physician Assistant
DX: I11.9 Hypertensive heart disease without heart failure (principal); I25.118 Atherosclerotic heart disease of native coronary artery with other forms of angina pectoris; I48.91 Unspecified atrial fibrillation; Z95.818 Presence of other cardiac implants and grafts
CPT/HCPCS: 93306

== ENCOUNTER 2025-10-10 10:00 | Outpatient (RCR) | payer MEDICARE, SELFPAY ==
--- NOTE | 2025-09-25 14:06 | [facility].PTOPEV ---
PT Evaluation Rehab PT Outpatient Evaluation Start: 09/25/25 12:56 Freq: Status: Active Protocol: Document 09/25/25 12:57 TANG (Rec: 09/25/25 14:06 TANG [id number]) E-signed By Mandie Cagle, PT Outpatient Therapy Subjective History Subjective History Pt is an 80 y/o male referred to PT for weakness of both lower extremities. Pt reports weakness of both legs for the past 2 years without worsening. Pt reports his legs feel like they will give way on him with walking even short distances and his ankle feel unstable with his left ankle dragging at times. Pt reports he fell 2-3 months ago gardening due to his legs giving out. Pt denies serious injuries from the fall. Pt reports he uses a tobacco stick to walk outside on uneven ground otherwise does not use an assistive device. Pt states in his home he uses cordova and furniture to steady himself. Pt denies altered vision or dizziness but does report light-headedness with prolonged walking ~1 block and standing too quickly. Pt reports this improves with rest. Per doctor report, no orthostatic hypotension was detected at this last appointment. Pt denies back pain or paresthesia but does report history of two back surgeries. Pt denies having recent imaging of his lumbar spine. Pt reports he was recommended to see a neurologist but the pt states he is not interested at this time. Medical History: Hypertension, Hx of 2 back surgeries, Iron deficiency anemia, Anemia, Abnormal angiogram, Asymmetrical hearing loss, Chronic dysfunction of both eustachian tubes, Middle ear effusion, Hearing loss decreased hearing, Unsteady gait, H/O cardiac PACEMAKER , Dyspnea, Pain in pacemaker pocket, Dyspnea, Cardiac pacemaker in situ, Type II Diabetes New diagnosis of No cancer in past 12 months? Chief Complaint Weakness Current Functional Recreation Activity,Walking,Stairs,Balance Limitations PT Balance Eval Posture and Alignment Static Standing Kyphotic Posture: Weight-bearing Symmetrical Symmetry: Gait Assessment Assistive Device: None Gait Deviations Wide based gait with decreased step length and arms Noted: abducted Balance Assessment Static Balance EO: 8 Static Balance EC: 5 Romberg: Max. Assist Dynamic Balance Timed Up and Go (TUG 22 ) in seconds: Five Times Sit-to- 22 Stand (5xSTS) in seconds: Neuromuscular Assessment Coordination: Normal Pproprioception ( Intact Great Toe): Light Touch Intact Sensation (LE): Strenth (LE)-MMT Hip Flexors Right 3+ Hip Flexors Left 3+ Knee Extensors Right 4- Knee Extensors Left 4- Ankle Dorsiflexors 3+ Right Ankle Dorsiflexors 3 Left Ankle Plantarflexors 4- Right Ankle Plantarflexors 3+ Left Lower Extremity Functional Index Activities Today, do you or would you have any difficulty at all with: a.Any of your usual Extreme difficulty or unable to perform activity work, housework or school activities b. Your usual Extreme difficulty or unable to perform activity hobbies, recreational or sporting activities c. Getting into or No difficulty out of the bath d. Walking between Moderate difficulty rooms e. Putting on your No difficulty shoes or socks f. Squatting Extreme difficulty or unable to perform activity g. Lifting an object No difficulty , like a bag of groceries from the floor h. Performing light No difficulty activities around your home i. Performing heavy Extreme difficulty or unable to perform activity activities around your home j. Getting into or No difficulty out of a car k. Walking 2 blocks Extreme difficulty or unable to perform activity l. Walking a mile Extreme difficulty or unable to perform activity m. Going up or down Moderate difficulty 10 stairs (about 1 flight of stairs) n. Standing for 1 Extreme difficulty or unable to perform activity hour o. Sitting for 1 No difficulty hour p. Running on even Extreme difficulty or unable to perform activity ground q. Running on uneven Extreme difficulty or unable to perform activity ground r. Making sharp Extreme difficulty or unable to perform activity turns while running fast s. Hopping Extreme difficulty or unable to perform activity t. Rolling over in No difficulty bed LEFI Score Lower Extremity 32 Functional Index Score Outpatient Therapy Assessment Impairments Problems/ Impaired Strength,Impaired Endurance,Impaired Transfers Impairmments ,Impaired Gait Pattern,Impaired Walking,Impaired Household Care,Impaired Stair Climbing,Impaired Incline Stepping,Impaired Stepping on Uneven Surface,Impaired Squatting,Impaired Balance,Impaired TUG Time,Impaired Self Care/Self Management Prognosis Rehab Potential Good Clinical Impression Consistent with Yes Diagnosis PT Patient Goals PT Patient Goals PT Short Term 4 weeks: Patient Goals 1. Verbalize compliance with HEP to assist with progress. 2. Improve 5x sit to stand score to 17 or less to decrease fall risk. 3. Improve BLE MMT to 4-/5 grossly to assist with function. 4. Improve LEFS score to at least 37 to improve overall QOL/function. PT [facility] Patient 8 weeks: Goals 1. Improve BLE MMT to 4-4+/5 grossly to assist with function. 2. Demonstrate improved gait mechanics with increased step length and SARAH to decrease fall risk. 3. Improve 5x sit to stand to 12 or less to decrease fall risk. 4. Improve TUG time with LRD to 12 or less to decrease fall risk. 5. Improve LEFS score to at least 42 to improve overall QOL/function. Outpatient Therapy Plan of Care Treatment Plan May Include Therapeutic Exercise Yes Including Home Exercise Program Manual Therapy Yes Techniques Neuromuscular Re- Yes education Therapeutic Yes Activities to Return to Previous Functional/Work Level Gait Training Yes ADL/Self Care Yes Education Massage Yes Group Therapy for Yes Medicare Eval/Re-Eval Yes Frequency Times per week 2 Duration Number of Weeks 6-8 Addendums This patient is a No candidate for social or vocational rehab ? Patient/Guardian Yes verbally acknowledges understanding of treatment program and consents to further treatment? Patient/Guardian Yes verbally acknowledges understanding of diagnosis, prognosis and goals for treatment? Eval Complexity PT Charges 80167 - Moderate Complexity Shoulder/Elbow Eval Shoulder Objective Measurements Elbow Objective Measurements PHYSICIAN CERTIFICATION: I certify the specified therapy services for Yojana Chaudhari are required, authorized, and reviewed every 30 days.
== END 2025-10-10 23:59 | disposition home or self-care (01) ==
LOC: PT 10:00
PROVIDERS: Visit Provider Physician Assistant
DX: R29.898 Other symptoms and signs involving the musculoskeletal system (principal); R42 Dizziness and giddiness
CPT/HCPCS: 97110; 97162; 97530

== ENCOUNTER 2025-10-30 09:52 | Outpatient (CLI) | payer MEDICARE, SELFPAY ==
[2025-10-30 10:30] LABS: Hematocrit 45.1 % (42.0-52.0); Hemoglobin 15.0 g/dL (14.1-18.0); Immature Granulocytes % 0.3 %; Mean Corpuscular HGB Conc 33.3 g/dL (31.8-35.4); Mean Corpuscular Hemoglobin 27.9 pg (27.0-31.2); Mean Corpuscular Volume 83.8 fl (80-94); Nucleated Red Blood Cells % 0 %; Platelet Count 250 K/mm3 (142-424); Red Blood Count 5.38 M/mm3 (4.60-6.20); Red Cell Distribution Width-SD 43.3 fL; White Blood Count 7.7 K/mm3 (4.8-10.8)
[2025-10-30 10:49] LABS: Hemoglobin A1C 7.0 % (4.0-6.0)
[2025-10-30 11:05] LABS: Alanine Aminotransferase 15 U/L (12-78); Albumin Level 4.3 g/dl (3.5-5.0); Albumin/Globulin Ratio 1.5 (1.1-1.8); Alkaline Phosphatase 74 U/L (38-126); Anion Gap 16.3 mEq/L (5-15); Aspartate Amino Transferase 21 U/L (17-59); Bilirubin,Total 0.7 mg/dl (0.2-1.3); Blood Urea Nitrogen 19 mg/dl (9-20); Calcium 10.1 mg/dl (8.4-10.2); Carbon Dioxide 26 mmol/L (22.0-30.0); Chloride 104 mmol/L (98-107); Creatinine,Serum 1.00 mg/dl (0.66-1.25); Estimated Glomerular Filt Rate 72 ml/min (>60); GFR (African American) 87 ML/MIN (>60); Globulin 2.8 g/dL (1.3-3.2); Glucose 142 mg/dl (74-100); Potassium 4.3 mmoL/L (3.5-5.1); Sodium 142 mmol/L (136-145); Total Protein,Serum 7.1 g/dl (6.3-8.2)
== END 2025-10-30 23:59 | disposition home or self-care (01) ==
LOC: LAB 09:54
PROVIDERS: PCP Nurse Practitioner Family; Visit Provider Nurse Practitioner Family
DX: E11.21 Type 2 diabetes mellitus with diabetic nephropathy (principal); I10 Essential (primary) hypertension; Z86.2 Personal history of diseases of the blood and blood-forming organs and certain disorders involving the immune mechanism
CPT/HCPCS: 36415; 80053; 82043; 82570; 83036; 85025